=== PATIENT | male | born 1935 | race Caucasian/White ===

== ENCOUNTER 2018-12-08 16:47 | Inpatient (IN) | payer MEDICARE, MEDICAID ==
[~2018-12-08] VITALS: Ht 182.9 cm; Wt 134.0 kg
[~2018-12-08 16:47] MED LIST: ACETAMINOPHEN325 M1 ORAL; CEPHALEXIN500 MG ORAL; DOXYCYCLINE HY100 M6 PO; NITROFURANTOIN100 M2 ORAL; SPIRONOLACTONE50 MG ORAL
[2018-12-08 16:52] VITALS: BP 122/70
--- NOTE | 2018-12-08 16:52 | NUR ---
ED Nurse Note: Pt brought in by ambulance from [facility] due to fever 101.7 since 1300 this afternoon. Tylenol 650mg was given by [facility] staff. Pt also c/o right lower leg sore and pain. Pt is AAO x2, unable to follow commands with no respiratory distress.
[2018-12-08] MEDS ORDERED: LORazepam Inj 2mg/ml 1ml IV ONE ×2 (17:15→18:00)
--- NOTE | 2018-12-08 17:24 | NUR ---
ED Nurse Note: Rectal temp 102.4 F. Crissy/MIGUEL ÁNGEL was notified.
[2018-12-08] MEDS ORDERED: Acetaminophen 650 MG SUPP RECTAL ONE (18:15)
--- NOTE | 2018-12-08 18:15 | NUR ---
ED Nurse Note: Primary RN spoke to pt and tried to get a urine sample via straight cath. Pt is refusing and cursing RN and states he does not need it. Crissy/MIGUEL ÁNGEL was notified and is okay not to collect urine specimen at this time.
--- NOTE | 2018-12-08 18:18 | Emergency Room Report ---
Physical Exam Vital Signs Date Time Temp Pulse Resp B/P (MAP) Pulse Ox O2 Delivery O2 Flow Rate FiO2 12/08/18 16:42 99.7 92 18 118/68 (85) 97 Room Air Medical Decision Making Diagnostic Impression: Primary Impression: Fever Additional Impressions: Cellulitis Elevated WBCs ER Course I seen the patient along with MIGUEL ÁNGEL Loving and agree with workup and treatment plan. Briefly, this is an 83-year-old male sent in from his nursing facility for evaluation of fever. Patient has ulcers over the lower extremities though differential is broad. He has a fever of 101 degrees taken rectally and is receiving Tylenol. Sent in by PMD for admission and further work-up. We will start broad metabolic and infectious work-up and admit to the hospital Laboratory Tests Test 12/08/18 18:00 12/08/18 21:00 12/09/18 06:36 White Blood Count 30.1 K/UL (4.8-10.8) *H 24.5 K/UL (4.8-10.8) *H Red Blood Count 4.67 M/UL (4.70-6.10) L 4.28 M/UL (4.70-6.10) L Hemoglobin 14.6 G/DL (14.2-18.0) 13.5 G/DL (14.2-18.0) L Hematocrit 44.4 % (42.0-52.0) 40.0 % (42.0-52.0) L Mean Corpuscular Volume 95 FL (80-99) 93 FL (80-99) Mean Corpuscular Hemoglobin 31.3 PG (27.0-31.0) H 31.5 PG (27.0-31.0) H Mean Corpuscular Hemoglobin Concent 33.0 G/DL (32.0-36.0) 33.7 G/DL (32.0-36.0) Red Cell Distribution Width 11.1 % (11.6-14.8) L 11.9 % (11.6-14.8) Platelet Count 214 K/UL (150-450) 201 K/UL (150-450) Mean Platelet Volume 7.2 FL (6.5-10.1) 7.2 FL (6.5-10.1) Neutrophils (%) (Auto) % (45.0-75.0) % (45.0-75.0) Lymphocytes (%) (Auto) % (20.0-45.0) % (20.0-45.0) Monocytes (%) (Auto) % (1.0-10.0) % (1.0-10.0) Eosinophils (%) (Auto) % (0.0-3.0) % (0.0-3.0) Basophils (%) (Auto) % (0.0-2.0) % (0.0-2.0) Differential Total Cells Counted 100 100 Neutrophils % (Manual) 74 % (45-75) 90 % (45-75) H Lymphocytes % (Manual) 2 % (20-45) L 4 % (20-45) L Monocytes % (Manual) 5 % (1-10) 5 % (1-10) Eosinophils % (Manual) 0 % (0-3) 0 % (0-3) Basophils % (Manual) 0 % (0-2) 0 % (0-2) Band Neutrophils 19 % (0-8) H 1 % (0-8) Platelet Estimate Adequate Adequate Platelet Morphology Normal Normal Red Blood Cell Morphology Normal Normal Prothrombin Time 10.6 SEC (9.30-11.50) Prothrombin Time INR 1.0 (0.9-1.1) PTT 28 SEC (23-33) Sodium Level 134 MMOL/L (136-145) L 138 MMOL/L (136-145) Potassium Level 4.7 MMOL/L (3.5-5.1) 4.1 MMOL/L (3.5-5.1) Chloride Level 98 MMOL/L (98-107) 103 MMOL/L (98-107) Carbon Dioxide Level 24 MMOL/L (21-32) 22 MMOL/L (21-32) Anion Gap 12 mmol/L (5-15) 13 mmol/L (5-15) Blood Urea Nitrogen 24 mg/dL (7-18) H 23 mg/dL (7-18) H Creatinine 1.5 MG/DL (0.55-1.30) H 1.5 MG/DL (0.55-1.30) H Estimate Glomerular Filtration Rate mL/min (>60) mL/min (>60) Glucose Level 116 MG/DL (74-106) H 104 MG/DL (74-106) Lactic Acid Level 2.60 mmol/L (0.4-2.0) H 2.30 mmol/L (0.66-2.22) H Calcium Level 9.1 MG/DL (8.5-10.1) 8.6 MG/DL (8.5-10.1) Total Bilirubin 0.8 MG/DL (0.2-1.0) 0.7 MG/DL (0.2-1.0) Aspartate Amino Transferase (AST) 17 U/L (15-37) 29 U/L (15-37) Alanine Aminotransferase (ALT) 14 U/L (12-78) 14 U/L (12-78) Alkaline Phosphatase 59 U/L (46-116) 55 U/L (46-116) Total Creatine Kinase 131 U/L (26-308) Creatine Kinase MB 0.6 NG/ML (0.0-3.6) Creatine Kinase MB Relative Index 0.4 Troponin I 0.010 ng/mL (0.000-0.056) Total Protein 8.1 G/DL (6.4-8.2) 7.4 G/DL (6.4-8.2) Albumin 3.3 G/DL (3.4-5.0) L 2.9 G/DL (3.4-5.0) L Globulin 4.8 g/dL 4.5 g/dL Albumin/Globulin Ratio 0.7 (1.0-2.7) L 0.6 (1.0-2.7) L Erythrocyte Sedimentation Rate 66 MM/HR (0-20) H Reevaluation Time: 23:00 Last Vital Signs Date Time Temp Pulse Resp B/P (MAP) Pulse Ox O2 Delivery O2 Flow Rate FiO2 12/08/18 16:52 102.4 89 17 122/70 100 Room Air Reevaluation Impression Patient remains combative with staff. Refusing chest x-ray and urinalysis. Will be sent to the floor without those studies. Disposition: ADMITTED INPATIENT Condition: Serious Referrals: Patric Alonso MD (PCP) Carroll Nolasco MD Dec 08, 2018 18:18
[2018-12-08 18:24] LABS: HEMATOCRIT 44.4 % (42.0-52.0); HEMOGLOBIN 14.6 G/DL (14.2-18.0); MEAN CORPUSCULAR VOLUME 95 FL (80-99); PLATELET COUNT 214 K/UL (150-450); RED BLOOD COUNT 4.67 M/UL (4.70-6.10); RED CELL DISTRIBUTION WIDTH 11.1 % (11.6-14.8)
[2018-12-08] MEDS ORDERED: Cefepime HCl 2 GM in NS 110 ML IV SCH (18:30)
[2018-12-08] MEDS ORDERED: Vancomycin 1.5 GM in NS 275 ML IVPB ONE (18:30)
[2018-12-08 18:34] LABS: WHITE BLOOD COUNT 30.1 K/UL (4.8-10.8)
[2018-12-08] MEDS ORDERED: Haloperidol 5mg/ml Inj IM ONE (18:45)
[2018-12-08 18:47] VITALS: BP 133/75
[2018-12-08 18:48] LABS: ANION GAP 12 mmol/L (5-15); BLOOD UREA NITROGEN 24 mg/dL (7-18); CALCIUM 9.1 MG/DL (8.5-10.1); CARBON DIOXIDE 24 MMOL/L (21-32); CHLORIDE 98 MMOL/L (98-107); CREATININE 1.5 MG/DL (0.55-1.30); POTASSIUM 4.7 MMOL/L (3.5-5.1); SODIUM 134 MMOL/L (136-145)
[2018-12-08 19:01] LABS: ALANINE AMINOTRANSFERASE 14 U/L (12-78); ALBUMIN 3.3 G/DL (3.4-5.0); ALBUMIN/GLOBULIN RATIO 0.7 (1.0-2.7); ALKALINE PHOSPHATASE 59 U/L (46-116); ASPARTATE AMINO TRANSFERASE 17 U/L (15-37); BILIRUBIN,TOTAL 0.8 MG/DL (0.2-1.0); CKMB 0.6 NG/ML (0.0-3.6); CREATINE KINASE 131 U/L (26-308)
--- NOTE | 2018-12-08 19:07 | NUR ---
HAND-OFF: Report given to Wen CONTRERAS.
--- NOTE | 2018-12-08 19:10 | NUR ---
ED Nurse Note: SWABS DONE BY PREVIOUS SHIFT RN SEAMUS, WILL NOTIFY RECEIVING RN FROM TELE.
--- NOTE | 2018-12-08 19:10 | NUR ---
ED Nurse Note: report received from BEN Bateman and assumed care, pt currently sinus tach on school lunch monitor, noted pt BLE edema, with wound on RLE posterior area with scabs. will cont monitor. pt o2sat 100% on RA, no sx resp distress noted at this time, noted pt combative and verbally inappropriate.
--- NOTE | 2018-12-08 19:40 | NUR ---
ED Nurse Note: pt void x 1 on bed, pt cleaned and changed. pt morbidly obese.
--- NOTE | 2018-12-08 19:42 | Emergency Room Report ---
History of Present Illness General Chief Complaint: Fever Source: EMS (Crissy Ray) Present Illness HPI 83-year-old male with history of dementia [facility] [address] Boudreaux' patient's for fever of 102 F. Patient is morbidly obese and has multiple infected skin wounds on lower extremities. Patient denies chest pain, shortness of breath, palpitation, diaphoresis. Patient is able to communicate however demented. Does not have any slurred speech and no unilateral or generalized weakness noted. Patient is shivering upon arrival. All other vital signs are within normal limits. Was taken Tylenol prior to arrival by the paramedics. Patient is noncooperative with staff refuses medication keeps taking his IV out, rectal Tylenol was given successfully, however we had to give him Haldol and Ativan in order to calm him down prior to imaging and administration of IV medication. (Crissy Ray) Allergies: Coded Allergies: No Known Allergies (Unverified , 12/06/17) Patient History Past Medical History: see triage record Past Surgical History: unable to obtain Pertinent Family History: none Immunizations: UTD Reviewed Nursing Documentation: PMH: Agreed; PSxH: Agreed (Crissy Ray) Nursing Documentation-PMH Past Medical History: No History, Except For Hx Cardiac Problems: Yes Hx Hypertension: Yes Hx Dialysis: No - Renal Disease Hx Neurological Problems: Yes - Dementia Hx Dementia: Yes (Crissy Ray) Review of Systems All Other Systems: negative except mentioned in HPI (Crissy Ray) Physical Exam Vital Signs Date Time Temp Pulse Resp B/P (MAP) Pulse Ox O2 Delivery O2 Flow Rate FiO2 12/08/18 16:42 99.7 92 18 118/68 (85) 97 Room Air Sp02 EP Interpretation: reviewed, abnormal - Temperature 102 General Appearance: alert, GCS 15, non-toxic, moderate distress, obese Head: normocephalic, atraumatic Eyes: bilateral eye normal inspection, bilateral eye PERRL ENT: hearing grossly normal, normal pharynx, no angioedema, normal voice Neck: full range of motion, supple/symm/no masses Respiratory: chest non-tender, lungs clear, normal breath sounds, no rhonchi, no wheezing, speaking full sentences Cardiovascular #1: regular rate, rhythm, no edema, no murmur, normal capillary refill Cardiovascular #2: 2+ dorsalis pedis (R), 2+ dorsalis pedis (L) Gastrointestinal: non tender, soft Genitourinary: no CVA tenderness Musculoskeletal: back normal, no calf tenderness, swelling - bilateral lower extremity swelling secondary to cellulitis Neurologic: alert, oriented x3, responsive, motor strength/tone normal, sensory intact, speech normal Psychiatric: judgement/insight normal, memory normal, mood/affect normal, no suicidal/homicidal ideation Skin: diaphoresis, other - infected ulcer right tib fib Lymphatic: no adenopathy (Crissy Ray) Medical Decision Making PA Attestation All diagnoses and treatment plans were reviewed and discussed with my supervising physician Dr. Nolasco (Crissy Ray) Medicare Attestation The history of Alberto Hardwick has been reviewed and management options for him have been examined and discussed by Carroll Nolasco. I have personally examined and interviewed the patient. (Carroll Nolasco MD) Diagnostic Impression: Primary Impression: Fever Additional Impressions: Elevated WBCs Cellulitis ER Course 83-year-old male with history of dementia coming from jail [address] Boudreaux' patient's for fever of 102 F. Patient is morbidly obese and has multiple infected skin wounds on lower extremities. Patient denies chest pain, shortness of breath, palpitation, diaphoresis. Patient is able to communicate however demented. Does not have any slurred speech and no unilateral or generalized weakness noted. Patient is shivering upon arrival. All other vital signs are within normal limits. Was taken Tylenol prior to arrival by the paramedics. Patient is noncooperative with staff refuses medication keeps taking his IV out, rectal Tylenol was given successfully, however we had to give him Haldol and Ativan in order to calm him down prior to imaging and administration of IV medication. Ddx considered but are not limited to : Cellulitis, DVT, superficial infection, abscess Vital signs: are WNL, pt. is afebrile H&PE are most consistent with: Cellulitis and fever ORDERS: ER sepsis work-up ED INTERVENTIONS: NS bolus, cefepime, vancomycin, Tylenol, Haldol, Ativan Patient was admited with diagnosis of cellulitis and fever to Dr. Boudreaux under supervision of : Gaurav pt stable at time of admission (Crissy Ray) EKG Diagnostic Results Rate: normal Rhythm: NSR ST Segments: no acute changes Other Impression no acute ST changes (Crissy Ray) Chest X-Ray Diagnostic Results Chest X-Ray Diagnostic Results : Chest X-Ray Ordered: Yes # of Views/Limited/Complete: 1 View Indication: Other EP Interpretation: Yes PA Xray: Interpretation reviewed, by supervising MD, and agrees with findings. Interpretation: no consolidation, no effusion, no pneumothorax Impression: No acute disease Electronically Signed by: Crissy Caldwell PA-C (Crissy Ray) Last Vital Signs Date Time Temp Pulse Resp B/P (MAP) Pulse Ox O2 Delivery O2 Flow Rate FiO2 12/08/18 18:47 79 20 133/75 96 Room Air 12/08/18 16:52 102.4 (Crissy Ray) Disposition: ADMITTED INPATIENT Condition: Stable Referrals: Patric Alonso MD (PCP) Crissy Ray Dec 08, 2018 19:42 Carroll Nolasco MD Dec 09, 2018 14:09
[2018-12-08 19:50] VITALS: BP 150/68
--- NOTE | 2018-12-08 20:30 | NUR ---
ED Nurse Note: pt demonstrating combative behaviors toward radiology technicians, kicking and punching, er provider notified regarding situation and per ED provider, DR. Alonso was notified. Verified with physician that pt is able to transfer to floor without xray results.
[2018-12-08] MEDS ORDERED: DiphenhydrAMINE 50mg/ml Inj ONE (20:39)
[2018-12-08] MEDS ORDERED: DiphenhydrAMINE 50mg/ml Inj IM ONE (20:45)
[2018-12-08 21:02] VITALS: BP 146/68
--- NOTE | 2018-12-08 21:14 | NUR ---
ED Nurse Note: report given to BEN Robledo.
--- NOTE | 2018-12-08 21:30 | NUR ---
TRANSFER TO FLOOR: PT TRANSFERRED TO TELE, ALL BELONGINGS SENT W/ PT W/ LIST, PT VSS, RESP EVEN AND UNLABORED ON NC VIA 2 L/MIN, PT SLEEPING AT THIS TIME, IV INTACT AND PATENT, RECEIVING BEN ESPANA NOTIFIED LACTIC REFLEX SENT TO LAB. PICTURE WAS UPLOADED BY PREVIOUS SHIFT BEN WAY. PT MED RECON DONE. CARE ENDORSED TO BEN ESPANA, PT SENT VIA ACLS PROTOCOL, SINUS RHYTHM ON COORDINATOR OF EVALUATION.
--- NOTE | 2018-12-08 21:45 | NUR ---
NURSE NOTES: Received pt from ED via gurney. Pt is being admitted for fever and sepsis. Pt is awake and alert but confused and agitated. Pt is very non compliant and belligerent. Placed on quality assurance monitor final. Oriented pt to room and unit. IV lines intact and patent. Bed in lowest position, call light within reach. Will contact MD for admission orders.
[2018-12-08 21:49] VITALS: BP 148/73
[2018-12-09 00:30] VITALS: BP 153/78
[2018-12-09] MEDS ORDERED: Acetaminophen 650 MG SUPP RECTAL PRN (01:15)
[2018-12-09 04:00] VITALS: BP 119/89
--- NOTE | 2018-12-09 06:05 | Consultation ---
History of Present Illness General Chief Complaint: Fever Present Illness Allergies: Coded Allergies: No Known Allergies (Unverified , 12/06/17) Medication History Scheduled Cephalexin* (Keflex*), 500 MG ORAL EVERY 8 HOURS, (Reported) Doxycycline Hyclate (Doxycycline Hyclate), 100 MG PO Q12HR, (Reported) Spironolactone* (Aldactone*), 50 MG ORAL DAILY, (Reported) Scheduled PRN Acetaminophen* (Acetaminophen 325MG Tablet*), 650 MG ORAL Q4H PRN for Breakthrough Pain, (Reported) Patient History Healthcare decision maker N Resuscitation status Full Code Advanced Directive on File Physical Exam Last 24 Hour Vital Signs Date Time Temp Pulse Resp B/P (MAP) Pulse Ox O2 Delivery O2 Flow Rate FiO2 12/09/18 04:00 100.2 100 20 119/89 (99) 95 12/09/18 04:00 100 12/09/18 01:59 99.4 12/09/18 00:30 91 12/09/18 00:30 102.0 91 22 153/78 (103) 94 12/08/18 22:00 Nasal Cannula 2.0 12/08/18 21:50 100 12/08/18 21:49 98.9 100 20 148/73 (98) 94 12/08/18 21:30 100.8 98 20 153/86 96 Nasal Cannula 2.0 12/08/18 21:02 100.9 98 20 146/68 96 Nasal Cannula 2.0 12/08/18 19:50 101.5 99 20 150/68 96 Room Air 12/08/18 18:47 79 20 133/75 96 Room Air 12/08/18 16:52 102.4 89 17 122/70 100 Room Air 12/08/18 16:52 88 15 Room Air 12/08/18 16:42 99.7 92 18 118/68 (85) 97 Room Air Intake and Output 12/08/18 12/09/18 18:59 06:59 Intake Total 1000 ml Balance 1000 ml Intake IV Total 1000 ml # Voids 3 # Bowel Movements 1 Laboratory Tests Test 12/08/18 18:00 12/08/18 21:00 White Blood Count 30.1 K/UL (4.8-10.8) *H Red Blood Count 4.67 M/UL (4.70-6.10) L Hemoglobin 14.6 G/DL (14.2-18.0) Hematocrit 44.4 % (42.0-52.0) Mean Corpuscular Volume 95 FL (80-99) Mean Corpuscular Hemoglobin 31.3 PG (27.0-31.0) H Mean Corpuscular Hemoglobin Concent 33.0 G/DL (32.0-36.0) Red Cell Distribution Width 11.1 % (11.6-14.8) L Platelet Count 214 K/UL (150-450) Mean Platelet Volume 7.2 FL (6.5-10.1) Neutrophils (%) (Auto) % (45.0-75.0) Lymphocytes (%) (Auto) % (20.0-45.0) Monocytes (%) (Auto) % (1.0-10.0) Eosinophils (%) (Auto) % (0.0-3.0) Basophils (%) (Auto) % (0.0-2.0) Differential Total Cells Counted 100 Neutrophils % (Manual) 74 % (45-75) Lymphocytes % (Manual) 2 % (20-45) L Monocytes % (Manual) 5 % (1-10) Eosinophils % (Manual) 0 % (0-3) Basophils % (Manual) 0 % (0-2) Band Neutrophils 19 % (0-8) H Platelet Estimate Adequate Platelet Morphology Normal Red Blood Cell Morphology Normal Prothrombin Time 10.6 SEC (9.30-11.50) Prothromb Time International Ratio 1.0 (0.9-1.1) Activated Partial Thromboplast Time 28 SEC (23-33) Sodium Level 134 MMOL/L (136-145) L Potassium Level 4.7 MMOL/L (3.5-5.1) Chloride Level 98 MMOL/L (98-107) Carbon Dioxide Level 24 MMOL/L (21-32) Anion Gap 12 mmol/L (5-15) Blood Urea Nitrogen 24 mg/dL (7-18) H Creatinine 1.5 MG/DL (0.55-1.30) H Estimat Glomerular Filtration Rate mL/min (>60) Glucose Level 116 MG/DL (74-106) H Lactic Acid Level 2.60 mmol/L (0.4-2.0) H 2.30 mmol/L (0.66-2.22) H Calcium Level 9.1 MG/DL (8.5-10.1) Total Bilirubin 0.8 MG/DL (0.2-1.0) Aspartate Amino Transf (AST/SGOT) 17 U/L (15-37) Alanine Aminotransferase (ALT/SGPT) 14 U/L (12-78) Alkaline Phosphatase 59 U/L (46-116) Total Creatine Kinase 131 U/L (26-308) Creatine Kinase MB 0.6 NG/ML (0.0-3.6) Creatine Kinase MB Relative Index 0.4 Troponin I 0.010 ng/mL (0.000-0.056) Total Protein 8.1 G/DL (6.4-8.2) Albumin 3.3 G/DL (3.4-5.0) L Globulin 4.8 g/dL Albumin/Globulin Ratio 0.7 (1.0-2.7) L Microbiology Date/Time Source Procedure Growth Status 12/08/18 18:00 Rectum Received Height (Feet): 6 Height (Inches): 0.00 Weight (Pounds): 313 Medications Current Medications Medications (Trade) Dose Ordered Sig/Arina Route PRN Reason Start Time Stop Time Status Last Admin Dose Admin Acetaminophen (Tylenol) 650 mg Q4H PRN ORAL Mild Pain/Temp > 100.5 12/08/18 23:15 01/07/19 23:14 Acetaminophen (Tylenol) 650 mg Q4H PRN RECTAL Mild Pain/Temp > 100.5 12/09/18 01:15 01/08/19 01:14 12/09/18 01:29 Spironolactone (Aldactone) 50 mg DAILY ORAL 12/09/18 09:00 01/08/19 08:59 Assessment/Plan Assessment/Plan: HEMATOLOGY-ONCOLOGY CONSULTATION REFERRING PHYSICIAN: Patric Boudreaux M.D. DATE OF CONSULTATION: 12/09/2018 REASON FOR CONSULTATION: Evaluation of potential DVT. Leukocytosis HISTORY OF PRESENT ILLNESS: This is an 83-year-old white male, who is a skilled nursing resident, admitted yesterday because of right leg pain and swelling. Denies fever or any symptoms. I have been consulted for the evaluation of DVT and leukocytosis. Current INR of 1.0 and is on lasix, has been given vanc and cefepime for lower ext swelling, infection, multiple wounds noted, infectious service consulted as well, and pending potential eval as well and pending abx. PAST MEDICAL HISTORY: Significant for morbid obesity, mild dementia, and cellulitis. ALLERGIES: No known drug allergy. MEDICATIONS: Aspirin, heparin, Lasix, Flomax, Protonix, [place], Aldactone, Tylenol, and got the dose of vancomycin in the ER. FAMILY HISTORY: noncontributory SOCIAL HISTORY: [facility] resident. Single. No history of alcohol, drug abuse, or smoking. REVIEW OF SYSTEMS: The patient denies any fever or chills. No coughing. No nausea. No vomiting. No diarrhea. No problem passing urine. PHYSICAL EXAMINATION: VITAL SIGNS: reviewed GEN: No acute distress. Seems obese. HEAD AND NECK: No oral lesion. [place] conjunctiva. HEART: Regular. LUNGS: Clear tab ABDOMEN: Obese, soft, and nontender. EXTREMITIES: Have erythema, warmness, and edema of lower extremities b/l and multiple wounds noted SKIN: Have skin cracks between the right foot toes. LABORATORY DATA: Na 131, potassium 4.9, chloride 104, bicarb 28, BUN 21, and creatinine 1.2. Creatinine at the time of admission was 1.6. WBC 9.9, WBC at the time of admission was 11.4, hemoglobin 12.9, hematocrit 38.6, and platelets 216. UA showed wbc of 10 to 15. Imaging: noted ASSESSMENT AND RECOMMENDATIONS: # Leukocytosis with a wbc of 30k likely due to infection/cellulitis --> given cefepime and vanc in the r --> per id care --> monitor for improvement 30k --> trend as needed 30k # Right greater that left swelling concerning for dvt --> Begin short-acting ppx blood thinner heparin 5k sq tid ===> duplex of the lower ext ordered # Anemia, mild. No w/u required at this time. --> Current Hgb >12 --> anemia panel on prn basis # Tinea pedis in right foot. --> Cont topical clotrimazole on right foot especially between the toes prn # Acute renal failure, improving. # Morbid obesity. # History of dementia. # History of hypertension. # History of CHF # Agitation as per psych, currently on ativan prn Appreciate consultation greatly. Shawn Lopez MD Dec 09, 2018 06:05
[2018-12-09 07:18] LABS: HEMOGLOBIN 13.5 G/DL (14.2-18.0); MEAN CORPUSCULAR VOLUME 93 FL (80-99); PLATELET COUNT 201 K/UL (150-450); RED BLOOD COUNT 4.28 M/UL (4.70-6.10); RED CELL DISTRIBUTION WIDTH 11.9 % (11.6-14.8)
[2018-12-09 07:21] LABS: WHITE BLOOD COUNT 24.5 K/UL (4.8-10.8)
--- NOTE | 2018-12-09 07:32 | NUR ---
HAND-OFF: Report given to BEN Romero.
--- NOTE | 2018-12-09 07:55 | NUR ---
NURSE NOTES: pt. in bed woke up and went back to sleep. Food tray is at bediside. Pt on contact precautions. Pt on monitoring and evaluation advisor no signs of cardiaca or respiratory distress at this time. IV is patent. Bed is locked and in lowest position. Call light is within reach. Will continuer to monitor pt and follow plans of care.
[2018-12-09 08:00] VITALS: BP 136/65
[2018-12-09 08:00] LABS: ALANINE AMINOTRANSFERASE 14 U/L (12-78); ALBUMIN 2.9 G/DL (3.4-5.0); ALBUMIN/GLOBULIN RATIO 0.6 (1.0-2.7); ALKALINE PHOSPHATASE 55 U/L (46-116); ANION GAP 13 mmol/L (5-15); ASPARTATE AMINO TRANSFERASE 29 U/L (15-37); BILIRUBIN,TOTAL 0.7 MG/DL (0.2-1.0); BLOOD UREA NITROGEN 23 mg/dL (7-18); CALCIUM 8.6 MG/DL (8.5-10.1); CARBON DIOXIDE 22 MMOL/L (21-32); CHLORIDE 103 MMOL/L (98-107); CREATININE 1.5 MG/DL (0.55-1.30); POTASSIUM 4.1 MMOL/L (3.5-5.1); SODIUM 138 MMOL/L (136-145)
[2018-12-09] MEDS: Spironolactone 50mg tab ORAL SCH (09:31)
--- NOTE | 2018-12-09 09:40 | Diagnostic Imaging Report ---
Indication: Left leg pain Comparison: None Findings: Two views of the left tibia and fibula were obtained. There is subcutaneous edema involving the left leg. There is no fracture. The bones are osteopenic. IMPRESSION: Subcutaneous edema of the left leg.
--- NOTE | 2018-12-09 09:48 | NUR ---
CASE MANAGEMENT:REVIEW 83 YR OLD MALE BIBA FROM [facility] CC; FEVER 101.7...TYLENOL GIVEN. RLE SORE AND PAIN SI: SEPSIS. FEVER 102.4 92 18 118/68 97% ON RA WBC+30.1 BUN+24 CR+1.5 IS: 1L NS BOLUS IV ATIVAN X2 TYLENOL KS ELIMITE X1 IV VANCOMYCIN BLOOD CX CXR XRAY FEET AND LEGS : TO TELEMETRY IS: IV CEFEPIME Q12 INTERQUAL CRITERIA MET
--- NOTE | 2018-12-09 10:41 | NUR ---
RADIOLOGY DEPT., CHEST AND RIGHT TIB/FIB X-RAYS COMPLETED. PT REFUSES BILATERAL FEET X-RAYS STATING ,"THERE ARE NO PROBLEMS WITH HIS FEET ONLY LOWER RIGHT LEG".-PD
--- NOTE | 2018-12-09 11:00 | Diagnostic Imaging Report ---
Indication: Chest pain Comparison: 12/06/2017 A single view chest radiograph was obtained. Findings: Exam is limited by rotation. Once again, cardiomegaly is present. There is prominence of the pulmonary interstitium and vascularity. The bones appear osteopenic. IMPRESSION: Suspected pulmonary vascular congestion. Limited evaluation due to rotation
--- NOTE | 2018-12-09 11:00 | Diagnostic Imaging Report ---
Indication: right leg pain Comparison: None Findings: Two views of the right tibia and fibula were obtained. No acute fracture, malalignment, or periosteal reaction are identified. Bones are osteopenic. Degenerative arthritis of the knee incidentally noted. There is subcutaneous edema present. Impression: No acute findings
[2018-12-09] MEDS: Doxycycline Monohydrate 100mg ORAL SCH ×2 (11:40→21:56)
[2018-12-09 12:00] VITALS: BP 116/50
--- NOTE | 2018-12-09 12:13 | NUR ---
NURSE NOTES: pt keeps taking alarm security or surveillance monitor off.
--- NOTE | 2018-12-09 14:06 | NUR ---
NURSE NOTES: Syed Aguero prescribed Ativan for agitation pt, keeps trying to get up from bed and is very weak and confused
[2018-12-09] MEDS: LORazepam 1mg tab ORAL PRN ×2 (14:27→21:56)
[2018-12-09] MEDS: Cephalexin 500mg cap ORAL SCH ×2 (14:27→21:56)
--- NOTE | 2018-12-09 15:05 | NUR ---
NURSE NOTES: keep putting cardiac rn on multiple times as well as nasal canula but pt continues to take them off. We will continue to remind pt to keep monitor and oxygen on
[2018-12-09] MEDS: OLANZapine 2.5mg tab ORAL SCH ×2 (15:25→17:55)
[2018-12-09 16:00] VITALS: BP 109/53
--- NOTE | 2018-12-09 17:45 | Consultation ---
DATE OF CONSULTATION: 08/08/2018 INFECTIOUS DISEASE CONSULTATION CONSULTING PHYSICIAN: Robert Lovelace M.D. PRIMARY ATTENDING PHYSICIAN: Patric Alnoso M.D. REASON FOR CONSULTATION: Sepsis, cellulitis of left leg. HISTORY OF PRESENT ILLNESS: This is an 83-year-old white male who is a senior living resident, admitted yesterday because of fever. He had a temperature of 102 in nursing facility and in hospital, had a temperature of 102.4. He had leukocytosis of 30,000 and had pain and swelling in the lower extremities, especially left one. The patient has mild dementia and very non-cooperative, refused antibiotic treatment. PAST MEDICAL HISTORY: Significant for morbid obesity, mild dementia, hypertension. He has a previous admission to [facility] in November of 2017 with right leg cellulitis. Chronic kidney disease. ALLERGIES: No known drug allergies. MEDICATIONS: Started on cefepime, doxycycline. Getting Tylenol. Got a dose of vancomycin and cefepime in the ER. SOCIAL HISTORY: senior care resident. No history of alcohol, drug abuse, or smoking. REVIEW OF SYSTEMS: Unobtainable. The patient is very non-cooperative. PHYSICAL EXAMINATION: VITAL SIGNS: Current temperature 99, pulse 79, blood pressure 136/65. GENERAL APPEARANCE: Obese, in no acute distress. HEAD AND NECK: [place] conjunctiva. HEART: Normal rate. LUNGS: Clear. ABDOMEN: Soft, obese. EXTREMITIES: Tenderness and erythema in the lower extremities with chronic stasis dermatitis. LABORATORY AND DIAGNOSTIC DATA: WBC today is 24.5 coming down from 30.1 at the time of admission, hemoglobin 13.5, hematocrit 40, platelets is 201,000. Sodium 138, potassium 4.1, chloride 103, bicarbonate 22, BUN 23, creatinine 1.5. Lactic acid 2.3. He had left leg x-ray that showed subcutaneous edema. IMPRESSION: Sepsis, fever, leukocytosis. He seems to have cellulitis of left lower extremity. He has mild dementia, morbid obesity, hypertension, lactic acidosis, chronic kidney disease. RECOMMENDATION: We will continue with Keflex and doxycycline. We will follow up clinically. We will follow up cultures. At the end of my exam, I thank Dr. Alonso for involving me in the care of this patient. Robert Lovelace M.D. DR: RENNY JOB#: [id number] CC: MADDY
--- NOTE | 2018-12-09 19:34 | NUR ---
HAND-OFF: Report given to Chencho/pj.
[2018-12-09 20:00] VITALS: BP 137/78
--- NOTE | 2018-12-09 22:11 | Consultation ---
History of Present Illness General Date patient seen: Dec 09, 2018 Reason for Hospitalization: Fever Present Illness HPI 83-year-old male with multiple medical comorbidities who is a prison resident was admitted for sepsis/fever/leukocytosis. He had a temperature of 102 in nursing facility and in hospital had a temperature of 102.4. He had leukocytosis of 30,000 and had pain and swelling in the lower extremities, especially left one. The patient has mild dementia and very non-cooperative. He has lower extremity wounds that are chronic. no n/v. plain films noted. surgery called to evaluate. patient seen, chart reviewed, patient examined. Allergies: Coded Allergies: No Known Allergies (Unverified , 12/06/17) Medication History Scheduled Cephalexin* (Keflex*), 500 MG ORAL EVERY 8 HOURS, (Reported) Doxycycline Hyclate (Doxycycline Hyclate), 100 MG PO Q12HR, (Reported) Spironolactone* (Aldactone*), 50 MG ORAL DAILY, (Reported) Scheduled PRN Acetaminophen* (Acetaminophen 325MG Tablet*), 650 MG ORAL Q4H PRN for Breakthrough Pain, (Reported) Patient History Limited by: medical condition History Provided By: Patient, Medical Record, PMD Healthcare decision maker N Resuscitation status Full Code Advanced Directive on File Past Medical/Surgical History Past Medical/Surgical History: (1) Hypoalbuminemia (2) Sepsis (3) Fever (4) Cellulitis (5) Elevated WBCs Review of Systems Review of Symptoms General ROS: no weight loss or fever Psychological ROS: no depression or mood changes, no memory loss Ophthalmic ROS: no visual changes or eye irritation ENT ROS: no nasal congestion, hearing loss, dizziness Allergy and Immunology ROS: no allergic symptoms or urticaria Hematological and Lymphatic ROS: no swollen glands, unusual bleeding or bruising Endocrine ROS: no polyuria, polydipsia, weight changes, temperature intolerance Respiratory ROS: no cough, shortness of breath, or wheezing Cardiovascular ROS: no chest pain or dyspnea on exertion Gastrointestinal ROS: denies abdominal pain, no bright red blood in stool. Musculoskeletal ROS: no myalgias or arthralgias Neurological ROS: no TIA or stroke symptoms Dermatological ROS: no new or changing skin lesions, rashes or pruritis Physical Exam Physical Exam General appearance: alert, cooperative, no distress, appears stated age Head: Normocephalic, without obvious abnormality, atraumatic Eyes: conjunctivae/corneas clear. PERRL, EOM's intact. Fundi benign Throat: Lips, mucosa, and tongue normal. Teeth and gums normal Neck: supple, symmetrical, trachea midline, no adenopathy, thyroid: not enlarged, symmetric, no tenderness/mass/nodules, no carotid bruit and no JVD Lungs: clear to auscultation bilaterally Heart: regular rate and rhythm, S1, S2 normal, no murmur, click, rub or gallop Abdomen: soft, non-tender. Bowel sounds normal. No masses, no organomegaly Extremities: extremities edema and wounds Pulses: 2+ and symmetric Skin: Skin color, texture, turgor normal. No rashes or lesions Neurologic: Grossly normal Last 24 Hour Vital Signs Date Time Temp Pulse Resp B/P (MAP) Pulse Ox O2 Delivery O2 Flow Rate FiO2 12/09/18 16:00 86 12/09/18 16:00 97.7 77 20 109/53 (71) 95 12/09/18 12:00 90 12/09/18 12:00 97.9 83 20 116/50 (72) 95 12/09/18 09:00 Nasal Cannula 2.0 12/09/18 08:00 79 12/09/18 08:00 99.0 79 22 136/65 (88) 94 12/09/18 04:00 100.2 100 20 119/89 (99) 95 12/09/18 04:00 100 12/09/18 01:59 99.4 12/09/18 00:30 91 12/09/18 00:30 102.0 91 22 153/78 (103) 94 Intake and Output 12/08/18 12/09/18 19:00 07:00 Intake Total 1000 ml Balance 1000 ml IV Total 1000 ml # Voids 5 # Bowel Movements 2 Laboratory Tests Test 12/09/18 06:36 White Blood Count 24.5 K/UL (4.8-10.8) *H Red Blood Count 4.28 M/UL (4.70-6.10) L Hemoglobin 13.5 G/DL (14.2-18.0) L Hematocrit 40.0 % (42.0-52.0) L Mean Corpuscular Volume 93 FL (80-99) Mean Corpuscular Hemoglobin 31.5 PG (27.0-31.0) H Mean Corpuscular Hemoglobin Concent 33.7 G/DL (32.0-36.0) Red Cell Distribution Width 11.9 % (11.6-14.8) Platelet Count 201 K/UL (150-450) Mean Platelet Volume 7.2 FL (6.5-10.1) Neutrophils (%) (Auto) % (45.0-75.0) Lymphocytes (%) (Auto) % (20.0-45.0) Monocytes (%) (Auto) % (1.0-10.0) Eosinophils (%) (Auto) % (0.0-3.0) Basophils (%) (Auto) % (0.0-2.0) Differential Total Cells Counted 100 Neutrophils % (Manual) 90 % (45-75) H Lymphocytes % (Manual) 4 % (20-45) L Monocytes % (Manual) 5 % (1-10) Eosinophils % (Manual) 0 % (0-3) Basophils % (Manual) 0 % (0-2) Band Neutrophils 1 % (0-8) Platelet Estimate Adequate Platelet Morphology Normal Red Blood Cell Morphology Normal Erythrocyte Sedimentation Rate 66 MM/HR (0-20) H Sodium Level 138 MMOL/L (136-145) Potassium Level 4.1 MMOL/L (3.5-5.1) Chloride Level 103 MMOL/L (98-107) Carbon Dioxide Level 22 MMOL/L (21-32) Anion Gap 13 mmol/L (5-15) Blood Urea Nitrogen 23 mg/dL (7-18) H Creatinine 1.5 MG/DL (0.55-1.30) H Estimat Glomerular Filtration Rate mL/min (>60) Glucose Level 104 MG/DL (74-106) Calcium Level 8.6 MG/DL (8.5-10.1) Total Bilirubin 0.7 MG/DL (0.2-1.0) Aspartate Amino Transf (AST/SGOT) 29 U/L (15-37) Alanine Aminotransferase (ALT/SGPT) 14 U/L (12-78) Alkaline Phosphatase 55 U/L (46-116) Total Protein 7.4 G/DL (6.4-8.2) Albumin 2.9 G/DL (3.4-5.0) L Globulin 4.5 g/dL Albumin/Globulin Ratio 0.6 (1.0-2.7) L Height (Feet): 6 Height (Inches): 0.00 Weight (Pounds): 297 Medications Current Medications Medications (Trade) Dose Ordered Sig/Arina Route PRN Reason Start Time Stop Time Status Last Admin Dose Admin Acetaminophen (Tylenol) 650 mg Q4H PRN ORAL Mild Pain/Temp > 100.5 12/08/18 23:15 01/07/19 23:14 Acetaminophen (Tylenol) 650 mg Q4H PRN RECTAL Mild Pain/Temp > 100.5 12/09/18 01:15 01/08/19 01:14 12/09/18 01:29 Cephalexin (Keflex) 500 mg EVERY 8 HOURS ORAL 12/09/18 14:00 12/16/18 13:59 12/09/18 21:56 Doxycycline Monohydrate (Doxycycline Monohydrate) 100 mg EVERY 12 HOURS ORAL 12/09/18 11:00 12/16/18 10:59 12/09/18 21:56 Lorazepam (Ativan) 2 mg Q6H PRN ORAL For Anxiety 12/09/18 14:15 12/16/18 14:14 12/09/18 21:56 Olanzapine (ZyPREXA) 2.5 mg TID ORAL 12/09/18 15:25 01/08/19 15:24 12/09/18 17:55 Spironolactone (Aldactone) 50 mg DAILY ORAL 12/09/18 09:00 01/08/19 08:59 12/09/18 09:31 Assessment/Plan Problem List: (1) Cellulitis Assessment & Plan: Right Tib fib xrays nml Left Tib fix xrays w/ There is subcutaneous edema involving the left leg. There is no fracture. The bones are osteopenic. exam with cellulitis. no abscess palpable cont IV Abx will follow clinically ICD Codes: L03.90 - Cellulitis, unspecified SNOMED: 733837209 (2) Elevated WBCs ICD Codes: D72.829 - Elevated white blood cell count, unspecified SNOMED: 116695459, 484779270 (3) Sepsis Assessment & Plan: possible etiology lower extremity cellulitis cont abx no abscess to drain currently. mainly phlegmona UA CXR blood cultures AM labs thank you ICD Codes: A41.9 - Sepsis, unspecified organism SNOMED: 11940172 (4) Fever ICD Codes: R50.9 - Fever, unspecified SNOMED: 706452860 Yayo Callaway Dec 09, 2018 22:11
[2018-12-10] VITALS: BP 151/74
--- NOTE | 2018-12-10 | History and Physical Report ---
DATE OF ADMISSION: 12/08/2018 HISTORY OF PRESENT ILLNESS: The patient comes in because he had fever of 101 at the facility. Also, admitted for leukocytosis, azotemia, rule out sepsis. The patient refused to give urine sample. The patient is agitated, combative. Also, he has lower extremity cellulitis and wound. He is admitted for those reasons . The patient is a poor historian, very agitated, irritable, and complains of pain in lower extremity. Denies shortness of breath. Denies nausea, vomiting, or diarrhea. No fever or chills. PAST MEDICAL HISTORY: Edema and psychosis. Poor historian. The patient also has history of hypertension, history of dementia. PAST SURGICAL HISTORY: Denies. SOCIAL HISTORY: He does have history of smoking, comes from a [facility]. FAMILY HISTORY: Noncontributory. REVIEW OF SYSTEMS: HEENT: Denies headaches. RESPIRATORY: Denies shortness of breath. Denies cough. CARDIOVASCULAR: Denies chest pain. Denies orthopnea. GASTROINTESTINAL: Denies nausea, vomiting, or diarrhea. EXTREMITIES: Denies pain in the lower extremities. PHYSICAL EXAMINATION: VITAL SIGNS: Temperature was 100.2, pulse is 100, blood pressure 119/89. HEENT: PERRLA. NECK: Supple. No lymphadenopathy. CHEST: Clear to auscultation. CARDIOVASCULAR: Tachycardiac. GASTROINTESTINAL: Soft, nontender, nondistended. No organomegaly. EXTREMITIES: Does have erythema. No signs or symptoms of cellulitis in the lower extremity. He is able to move extremities. Generalized weakness. LABORATORY DATA: WBC of 30.1, hemoglobin 14.6, platelets of 214,000. Sodium 134, potassium 4.7, BUN of 24, creatinine 1.5, and glucose of 116. ASSESSMENT AND PLAN: 1. Leukocytosis. 2. Sepsis. 3. Cellulitis of lower extremity. 4. Refuse to give urine sample. 5. Agitated. I have asked Dr. Fischer, Dr. Robert Lovelace, Dr. Rashid, Dr. Yayo Callaway to see the patient if needs I and D of the decubitus ulcer as well as for the antibiotic treatment of his cellulitis as well as for agitation and as well as for the reason of azotemia, dehydration. Ali Gay Alonso DR: ESTHELA JOB#: [id number] CC:
[2018-12-10 04:00] VITALS: BP 131/62
[2018-12-10] MEDS: Cephalexin 500mg cap ORAL SCH ×3 (06:42→20:46)
--- NOTE | 2018-12-10 07:44 | NUR ---
NURSE NOTES: pt in bed resting, pt is on restraints. food tray is at bed side. pt on electronic device monitor no signs of cardiac or respiratory distress. Call light next to pt. Bed in lowest position. Will continue to follow plan of care and monitor labs.
[2018-12-10 08:48] VITALS: BP 143/68
[2018-12-10] MEDS: OLANZapine 2.5mg tab ORAL SCH ×3 (09:27→18:00)
[2018-12-10] MEDS: Spironolactone 50mg tab ORAL SCH (09:27)
[2018-12-10] MEDS: Doxycycline Monohydrate 100mg ORAL SCH ×2 (09:28→20:46)
--- NOTE | 2018-12-10 10:20 | Hematology/Onc Progress Note ---
Assessment/Plan Assessment/Plan ASSESSMENT AND RECOMMENDATIONS: # Leukocytosis with a wbc of 30k likely due to infection/cellulitis --> given cefepime and vanc in er --> currently on ceph/doxy --> per id care --> monitor for improvement 30k --> trend as needed 30k # Right greater that left swelling concerning for dvt --> Begin short-acting ppx blood thinner heparin 5k sq tid ===> duplex of the lower ext ordered # Anemia, mild. No w/u required at this time. --> Current Hgb >12 --> anemia panel on prn basis # Tinea pedis in right foot. --> Cont topical clotrimazole on right foot especially between the toes prn # Acute renal failure, improving. # Morbid obesity. # History of dementia. # History of hypertension. # History of CHF # Agitation as per psych, currently on ativan prn Appreciate consultation greatly. Subjective Allergies: Coded Allergies: No Known Allergies (Unverified , 12/06/17) Subjective 12/10: on restraints, no acute events, duplex results pending Objective Objective Current Medications Medications (Trade) Dose Ordered Sig/Arina Route PRN Reason Start Time Stop Time Status Last Admin Dose Admin Acetaminophen (Tylenol) 650 mg Q4H PRN ORAL Mild Pain/Temp > 100.5 12/08/18 23:15 01/07/19 23:14 Acetaminophen (Tylenol) 650 mg Q4H PRN RECTAL Mild Pain/Temp > 100.5 12/09/18 01:15 01/08/19 01:14 12/09/18 01:29 Cephalexin (Keflex) 500 mg EVERY 8 HOURS ORAL 12/09/18 14:00 12/16/18 13:59 12/10/18 06:42 Doxycycline Monohydrate (Doxycycline Monohydrate) 100 mg EVERY 12 HOURS ORAL 12/09/18 11:00 12/16/18 10:59 12/10/18 09:28 Lorazepam (Ativan) 2 mg Q6H PRN ORAL For Anxiety 12/09/18 14:15 12/16/18 14:14 12/09/18 21:56 Mirtazapine (Remeron) 7.5 mg BEDTIME ORAL 12/09/18 22:30 01/08/19 22:29 12/09/18 22:46 Olanzapine (ZyPREXA) 2.5 mg TID ORAL 12/09/18 15:25 01/08/19 15:24 12/10/18 09:27 Spironolactone (Aldactone) 50 mg DAILY ORAL 12/09/18 09:00 01/08/19 08:59 12/10/18 09:27 Last 24 Hour Vital Signs Date Time Temp Pulse Resp B/P (MAP) Pulse Ox O2 Delivery O2 Flow Rate FiO2 12/10/18 09:00 Nasal Cannula 2.0 12/10/18 08:48 97.8 90 22 143/68 (93) 98 12/10/18 08:00 95 12/10/18 04:00 93 12/10/18 04:00 99.4 94 18 131/62 (85) 95 12/10/18 00:00 89 12/10/18 00:00 98.9 94 18 151/74 (99) 95 12/09/18 21:00 Nasal Cannula 2.0 12/09/18 20:00 99.0 94 18 137/78 (97) 97 12/09/18 20:00 91 12/09/18 16:00 86 12/09/18 16:00 97.7 77 20 109/53 (71) 95 12/09/18 12:00 90 12/09/18 12:00 97.9 83 20 116/50 (72) 95 12/09/18 09:00 Nasal Cannula 2.0 12/09/18 08:00 79 12/09/18 08:00 99.0 79 22 136/65 (88) 94 12/09/18 04:00 100.2 100 20 119/89 (99) 95 12/09/18 04:00 100 12/09/18 01:59 99.4 12/09/18 00:30 91 12/09/18 00:30 102.0 91 22 153/78 (103) 94 12/08/18 22:00 Nasal Cannula 2.0 12/08/18 21:50 100 12/08/18 21:49 98.9 100 20 148/73 (98) 94 12/08/18 21:30 100.8 98 20 153/86 96 Nasal Cannula 2.0 12/08/18 21:02 100.9 98 20 146/68 96 Nasal Cannula 2.0 12/08/18 19:50 101.5 99 20 150/68 96 Room Air 12/08/18 18:47 79 20 133/75 96 Room Air 12/08/18 16:52 102.4 89 17 122/70 100 Room Air 12/08/18 16:52 88 15 Room Air 12/08/18 16:42 99.7 92 18 118/68 (85) 97 Room Air Intake and Output 12/09/18 12/10/18 18:59 06:59 Intake Total 480 ml Output Total 400 ml Balance 80 ml Intake Oral 480 ml Output Urine Total 400 ml # Voids 4 3 # Bowel Movements 2 1 Labs Test 12/08/18 18:00 12/08/18 21:00 12/09/18 06:36 White Blood Count 30.1 K/UL (4.8-10.8) 24.5 K/UL (4.8-10.8) Red Blood Count 4.67 M/UL (4.70-6.10) 4.28 M/UL (4.70-6.10) Hemoglobin 14.6 G/DL (14.2-18.0) 13.5 G/DL (14.2-18.0) Hematocrit 44.4 % (42.0-52.0) 40.0 % (42.0-52.0) Mean Corpuscular Volume 95 FL (80-99) 93 FL (80-99) Mean Corpuscular Hemoglobin 31.3 PG (27.0-31.0) 31.5 PG (27.0-31.0) Mean Corpuscular Hemoglobin Concent 33.0 G/DL (32.0-36.0) 33.7 G/DL (32.0-36.0) Red Cell Distribution Width 11.1 % (11.6-14.8) 11.9 % (11.6-14.8) Platelet Count 214 K/UL (150-450) 201 K/UL (150-450) Mean Platelet Volume 7.2 FL (6.5-10.1) 7.2 FL (6.5-10.1) Neutrophils (%) (Auto) % (45.0-75.0) % (45.0-75.0) Lymphocytes (%) (Auto) % (20.0-45.0) % (20.0-45.0) Monocytes (%) (Auto) % (1.0-10.0) % (1.0-10.0) Eosinophils (%) (Auto) % (0.0-3.0) % (0.0-3.0) Basophils (%) (Auto) % (0.0-2.0) % (0.0-2.0) Differential Total Cells Counted 100 100 Neutrophils % (Manual) 74 % (45-75) 90 % (45-75) Lymphocytes % (Manual) 2 % (20-45) 4 % (20-45) Monocytes % (Manual) 5 % (1-10) 5 % (1-10) Eosinophils % (Manual) 0 % (0-3) 0 % (0-3) Basophils % (Manual) 0 % (0-2) 0 % (0-2) Band Neutrophils 19 % (0-8) 1 % (0-8) Platelet Estimate Adequate Adequate Platelet Morphology Normal Normal Red Blood Cell Morphology Normal Normal Prothrombin Time 10.6 SEC (9.30-11.50) Prothromb Time International Ratio 1.0 (0.9-1.1) Activated Partial Thromboplast Time 28 SEC (23-33) Sodium Level 134 MMOL/L (136-145) 138 MMOL/L (136-145) Potassium Level 4.7 MMOL/L (3.5-5.1) 4.1 MMOL/L (3.5-5.1) Chloride Level 98 MMOL/L (98-107) 103 MMOL/L (98-107) Carbon Dioxide Level 24 MMOL/L (21-32) 22 MMOL/L (21-32) Anion Gap 12 mmol/L (5-15) 13 mmol/L (5-15) Blood Urea Nitrogen 24 mg/dL (7-18) 23 mg/dL (7-18) Creatinine 1.5 MG/DL (0.55-1.30) 1.5 MG/DL (0.55-1.30) Estimat Glomerular Filtration Rate mL/min (>60) mL/min (>60) Glucose Level 116 MG/DL (74-106) 104 MG/DL (74-106) Lactic Acid Level 2.60 mmol/L (0.4-2.0) 2.30 mmol/L (0.66-2.22) Calcium Level 9.1 MG/DL (8.5-10.1) 8.6 MG/DL (8.5-10.1) Total Bilirubin 0.8 MG/DL (0.2-1.0) 0.7 MG/DL (0.2-1.0) Aspartate Amino Transf (AST/SGOT) 17 U/L (15-37) 29 U/L (15-37) Alanine Aminotransferase (ALT/SGPT) 14 U/L (12-78) 14 U/L (12-78) Alkaline Phosphatase 59 U/L (46-116) 55 U/L (46-116) Total Creatine Kinase 131 U/L (26-308) Creatine Kinase MB 0.6 NG/ML (0.0-3.6) Creatine Kinase MB Relative Index 0.4 Troponin I 0.010 ng/mL (0.000-0.056) Total Protein 8.1 G/DL (6.4-8.2) 7.4 G/DL (6.4-8.2) Albumin 3.3 G/DL (3.4-5.0) 2.9 G/DL (3.4-5.0) Globulin 4.8 g/dL 4.5 g/dL Albumin/Globulin Ratio 0.7 (1.0-2.7) 0.6 (1.0-2.7) Erythrocyte Sedimentation Rate 66 MM/HR (0-20) Height (Feet): 6 Height (Inches): 0.00 Weight (Pounds): 297 Objective PHYSICAL EXAMINATION: VITAL SIGNS: reviewed GEN: No acute distress. Seems obese. Restraints++ HEAD AND NECK: No oral lesion. [place] conjunctiva. HEART: Regular. LUNGS: Clear tab ABDOMEN: Obese, soft, and nontender. EXTREMITIES: Have erythema, warmness, and edema of lower extremities b/l and multiple wounds noted SKIN: Have skin cracks between the right foot toes. Shawn Lopez MD Dec 10, 2018 10:20
--- NOTE | 2018-12-10 10:37 | NUR ---
CASE MANAGEMENT:REVIEW 12/10/18 SI: SEPSIS. LE CELLULITIS AGITATION 97.8 90 22 143/68 98% ON 2L/NC IS: KEFLEX PO Q8HRS DOXYCYCLINE PO Q12 ALDACTONE PO QD REMERON PO QHS ZYPREXA PO TID : TELEMETRY STATUS DCP: FROM [facility]
[2018-12-10 11:44] LABS: HEMATOCRIT 40.1 % (42.0-52.0); HEMOGLOBIN 13.3 G/DL (14.2-18.0); MEAN CORPUSCULAR VOLUME 94 FL (80-99); PLATELET COUNT 200 K/UL (150-450); RED BLOOD COUNT 4.26 M/UL (4.70-6.10); RED CELL DISTRIBUTION WIDTH 12.6 % (11.6-14.8); WHITE BLOOD COUNT 21.1 K/UL (4.8-10.8)
[2018-12-10 12:00] VITALS: BP 135/69
[2018-12-10 12:02] LABS: ALANINE AMINOTRANSFERASE 25 U/L (12-78); ALBUMIN 2.6 G/DL (3.4-5.0); ALBUMIN/GLOBULIN RATIO 0.5 (1.0-2.7); ALKALINE PHOSPHATASE 57 U/L (46-116); ANION GAP 5 mmol/L (5-15); ASPARTATE AMINO TRANSFERASE 31 U/L (15-37); BILIRUBIN,TOTAL 0.4 MG/DL (0.2-1.0); BLOOD UREA NITROGEN 23 mg/dL (7-18); CALCIUM 8.8 MG/DL (8.5-10.1); CARBON DIOXIDE 29 MMOL/L (21-32); CHLORIDE 106 MMOL/L (98-107); CREATININE 1.4 MG/DL (0.55-1.30); POTASSIUM 4.2 MMOL/L (3.5-5.1); SODIUM 140 MMOL/L (136-145)
--- NOTE | 2018-12-10 12:22 | General Progress Note ---
Assessment/Plan Problem List: (1) Cellulitis ICD Codes: L03.90 - Cellulitis, unspecified SNOMED: 718992719 (2) Fever ICD Codes: R50.9 - Fever, unspecified SNOMED: 856592559 (3) Elevated WBCs ICD Codes: D72.829 - Elevated white blood cell count, unspecified SNOMED: 874775843, 112435069 (4) Hypoalbuminemia ICD Codes: E88.09 - Other disorders of plasma-protein metabolism, not elsewhere classified SNOMED: 623802721 (5) Sepsis ICD Codes: A41.9 - Sepsis, unspecified organism SNOMED: 17913892 Status: progressing Assessment/Plan: afebrile sepsis leukocytosis psych patient on on restraints for being agiated and abusive behaviour reviewed chart and labs Subjective ROS Limited/Unobtainable: Yes Allergies: Coded Allergies: No Known Allergies (Unverified , 12/06/17) Objective Last 24 Hour Vital Signs Date Time Temp Pulse Resp B/P (MAP) Pulse Ox O2 Delivery O2 Flow Rate FiO2 12/10/18 09:00 Nasal Cannula 2.0 12/10/18 08:48 97.8 90 22 143/68 (93) 98 12/10/18 08:00 95 12/10/18 04:00 93 12/10/18 04:00 99.4 94 18 131/62 (85) 95 12/10/18 00:00 89 12/10/18 00:00 98.9 94 18 151/74 (99) 95 12/09/18 21:00 Nasal Cannula 2.0 12/09/18 20:00 99.0 94 18 137/78 (97) 97 12/09/18 20:00 91 12/09/18 16:00 86 12/09/18 16:00 97.7 77 20 109/53 (71) 95 Intake and Output 12/09/18 12/10/18 18:59 06:59 Intake Total 480 ml Output Total 400 ml Balance 80 ml Intake Oral 480 ml Output Urine Total 400 ml # Voids 4 3 # Bowel Movements 2 1 Laboratory Tests 12/10/18 11:30: White Blood Count 21.1H, Red Blood Count 4.26L, Hemoglobin 13.3L, Hematocrit 40.1L, Mean Corpuscular Volume 94, Mean Corpuscular Hemoglobin 31.2H, Mean Corpuscular Hemoglobin Concent 33.2, Red Cell Distribution Width 12.6, Platelet Count 200, Mean Platelet Volume 7.3, Neutrophils (%) (Auto) , Lymphocytes (%) ( Auto) , Monocytes (%) (Auto) , Eosinophils (%) (Auto) , Basophils (%) (Auto) , Neutrophils % (Manual) [Pending], Lymphocytes % (Manual) [Pending], Platelet Estimate [Pending], Platelet Morphology [Pending], Sodium Level 140, Potassium Level 4.2, Chloride Level 106, Carbon Dioxide Level 29, Anion Gap 5, Blood Urea Nitrogen 23H, Creatinine 1.4H, Estimat Glomerular Filtration Rate , Glucose Level 119H, Calcium Level 8.8, Total Bilirubin 0.4, Aspartate Amino Transf (AST/ SGOT) 31, Alanine Aminotransferase (ALT/SGPT) 25, Alkaline Phosphatase 57, C- Reactive Protein, Quantitative 38.0H, Total Protein 7.4, Albumin 2.6L, Globulin 4.8, Albumin/Globulin Ratio 0.5L Height (Feet): 6 Height (Inches): 0.00 Weight (Pounds): 297 Neck: supple Cardiovascular: normal rate Respiratory/Chest: lungs clear Abdomen: soft Patric Alonso MD Dec 10, 2018 12:22
--- NOTE | 2018-12-10 13:00 | Consultation ---
DATE OF CONSULTATION: 12/09/2018 CONSULTING PHYSICIAN: Andrzej Fischer M.D. HISTORY OF PRESENT ILLNESS: This is an 83-year-old male with a history of multiple medical comorbidities who has been admitted to the hospital for medical stabilization. The patient has a history of morbid obesity, dementia, hypertension, and chronic kidney disease who has been admitted to the hospital. The patient is having dementia and is uncooperative, refusing treatment, yelling, screaming, attempting to jump the bed. The patient is a poor historian. PAST PSYCHIATRIC HISTORY: Dementia, anxiety disorder, outside of the hospital has not been on any psychotropic medications. PAST MEDICAL HISTORY: 1. Chronic kidney disease. 2. Hyperlipidemia. 3. Cellulitis of the leg. ALLERGIES: No known drug allergies. SUBSTANCE USE HISTORY: No known history of illicit drug use or alcohol. MENTAL STATUS EXAMINATION: The patient is alert, uncooperative, agitated, not participating in his mental status examination and is confused. Mood is agitated. Affect is flat. Thought process, there is a paucity of thought content and disorganized. Thought content, no suicidal or homicidal ideations. ASSESSMENT: [place] I Dementia with behavior disturbance. Acute metabolic encephalopathy. [place] II Deferred. [place] III As above. [place] IV Moderate. [place] V 20. PLAN: 1. The patient was started on Zyprexa. 2. We will start the patient on Remeron 7.5 at bedtime. 3. Continue the soft restraints. Andrzej Fischer M.D. DR: MORENITA JOB#: [id number] CC:
--- NOTE | 2018-12-10 13:18 | Consultation ---
Consult Note Consult Note I am asked to evaluate the patient at the request of Dr rodriguez for renal failure Patient poor historian examined- rash ? Scabies all over has condom cath confused obese legs swollen ER: 83-year-old male with history of dementia coming from skilled nursing [address] Rodriguez' patient's for fever of 102 F. Patient is morbidly obese and has multiple infected skin wounds on lower extremities. Patient denies chest pain, shortness of breath, palpitation, diaphoresis. Patient is able to communicate however demented. Does not have any slurred speech and no unilateral or generalized weakness noted. Patient is shivering upon arrival. All other vital signs are within normal limits. Was taken Tylenol prior to arrival by the paramedics. Patient is noncooperative with staff refuses medication keeps taking his IV out, rectal Tylenol was given successfully, however we had to give him Haldol and Ativan in order to calm him down prior to imaging and administration of IV medication. No Known Allergies (Unverified , 12/06/17) Past Medical History: No History, Except For Hx Cardiac Problems: Yes Hx Hypertension: Yes Hx Neurological Problems: Yes - Dementia Hx Dementia: Yes Assessment/Plan presents with Fever and high WBCs and LE cellulitis Cr 1.5: h/o CKD no urine analysis yet Dementia HTN Obesity Lactic acidosis Antibiotics slow diurese avoid nephrotoxics 2D echo monitor renal parameters UA Jay Rashid MD Dec 10, 2018 13:18
--- NOTE | 2018-12-10 14:29 | Infectious Diseases Prog Note ---
Assessment/Plan Assessment/Plan IMPRESSION: Sepsis, fever, leukocytosis Cellulitis of left lower extremity. Dementia, morbid obesity, hypertension, lactic acidosis, chronic kidney disease. RECOMMENDATION: We will continue with Keflex and doxycycline. Subjective ROS Limited/Unobtainable: Yes Constitutional: Denies: fever Neurologic: Reports: other - on restraint Allergies: Coded Allergies: No Known Allergies (Unverified , 12/06/17) Objective Vital Signs Last 24 Hour Vital Signs Date Time Temp Pulse Resp B/P (MAP) Pulse Ox O2 Delivery O2 Flow Rate FiO2 12/10/18 12:00 98.2 87 21 135/69 (91) 98 12/10/18 09:00 Nasal Cannula 2.0 12/10/18 08:48 97.8 90 22 143/68 (93) 98 12/10/18 08:00 96 Nasal Cannula 2.0 28 12/10/18 08:00 95 12/10/18 04:00 93 12/10/18 04:00 99.4 94 18 131/62 (85) 95 12/10/18 00:00 89 12/10/18 00:00 98.9 94 18 151/74 (99) 95 12/09/18 21:00 Nasal Cannula 2.0 12/09/18 20:00 99.0 94 18 137/78 (97) 97 12/09/18 20:00 91 12/09/18 16:00 86 12/09/18 16:00 97.7 77 20 109/53 (71) 95 Height (Feet): 6 Height (Inches): 0.00 Weight (Pounds): 297 General Appearance: no acute distress HEENT: mucous membranes moist Respiratory/Chest: lungs clear Cardiovascular: normal rate Abdomen: soft, non tender Extremities: other - edema of legs Skin: other - erythema of left barrios Neurologic/Psychiatric: other - sleeping Microbiology Date/Time Source Procedure Growth Status 12/08/18 18:15 Blood Blood Culture - Preliminary NO GROWTH AFTER 24 HOURS Resulted 12/08/18 18:00 Blood Blood Culture - Preliminary NO GROWTH AFTER 24 HOURS Resulted 12/08/18 18:00 Nasal Nares MRSA Culture - Final NO METHICILLIN RESISTANT STAPH AUREUS... Complete 12/08/18 18:00 Rectum VRE Culture - Final NO VANCOMYCIN RESISTANT ENTEROCOCCUS ... Complete 12/08/18 18:00 Rectum - Final NO CARBAPENEM-RESISTANT ENTEROBACTERI... Complete Laboratory Tests Test 12/10/18 11:30 White Blood Count 21.1 K/UL (4.8-10.8) H Red Blood Count 4.26 M/UL (4.70-6.10) L Hemoglobin 13.3 G/DL (14.2-18.0) L Hematocrit 40.1 % (42.0-52.0) L Mean Corpuscular Volume 94 FL (80-99) Mean Corpuscular Hemoglobin 31.2 PG (27.0-31.0) H Mean Corpuscular Hemoglobin Concent 33.2 G/DL (32.0-36.0) Red Cell Distribution Width 12.6 % (11.6-14.8) Platelet Count 200 K/UL (150-450) Mean Platelet Volume 7.3 FL (6.5-10.1) Neutrophils (%) (Auto) % (45.0-75.0) Lymphocytes (%) (Auto) % (20.0-45.0) Monocytes (%) (Auto) % (1.0-10.0) Eosinophils (%) (Auto) % (0.0-3.0) Basophils (%) (Auto) % (0.0-2.0) Differential Total Cells Counted 100 Neutrophils % (Manual) 87 % (45-75) H Lymphocytes % (Manual) 7 % (20-45) L Monocytes % (Manual) 6 % (1-10) Eosinophils % (Manual) 0 % (0-3) Basophils % (Manual) 0 % (0-2) Band Neutrophils 0 % (0-8) Platelet Estimate Adequate Platelet Morphology Normal Red Blood Cell Morphology Normal Sodium Level 140 MMOL/L (136-145) Potassium Level 4.2 MMOL/L (3.5-5.1) Chloride Level 106 MMOL/L (98-107) Carbon Dioxide Level 29 MMOL/L (21-32) Anion Gap 5 mmol/L (5-15) Blood Urea Nitrogen 23 mg/dL (7-18) H Creatinine 1.4 MG/DL (0.55-1.30) H Estimat Glomerular Filtration Rate mL/min (>60) Glucose Level 119 MG/DL (74-106) H Calcium Level 8.8 MG/DL (8.5-10.1) Total Bilirubin 0.4 MG/DL (0.2-1.0) Aspartate Amino Transf (AST/SGOT) 31 U/L (15-37) Alanine Aminotransferase (ALT/SGPT) 25 U/L (12-78) Alkaline Phosphatase 57 U/L (46-116) C-Reactive Protein, Quantitative 38.0 mg/dL (0.00-0.90) H Total Protein 7.4 G/DL (6.4-8.2) Albumin 2.6 G/DL (3.4-5.0) L Globulin 4.8 g/dL Albumin/Globulin Ratio 0.5 (1.0-2.7) L Current Medications Medications (Trade) Dose Ordered Sig/Arina Route PRN Reason Start Time Stop Time Status Last Admin Dose Admin Acetaminophen (Tylenol) 650 mg Q4H PRN ORAL Mild Pain/Temp > 100.5 12/08/18 23:15 01/07/19 23:14 Acetaminophen (Tylenol) 650 mg Q4H PRN RECTAL Mild Pain/Temp > 100.5 12/09/18 01:15 01/08/19 01:14 12/09/18 01:29 Cephalexin (Keflex) 500 mg EVERY 8 HOURS ORAL 12/09/18 14:00 12/16/18 13:59 12/10/18 06:42 Docusate Sodium (Colace) 100 mg THREE TIMES A DAY ORAL 12/10/18 18:00 01/09/19 17:59 Doxycycline Monohydrate (Doxycycline Monohydrate) 100 mg EVERY 12 HOURS ORAL 12/09/18 11:00 12/16/18 10:59 12/10/18 09:28 Lorazepam (Ativan) 2 mg Q6H PRN ORAL For Anxiety 12/09/18 14:15 12/16/18 14:14 12/09/18 21:56 Mirtazapine (Remeron) 7.5 mg BEDTIME ORAL 12/09/18 22:30 01/08/19 22:29 12/09/18 22:46 Olanzapine (ZyPREXA) 2.5 mg TID ORAL 12/09/18 15:25 01/08/19 15:24 12/10/18 09:27 Pantoprazole (Protonix) 40 mg EVERY 12 HOURS ORAL 12/10/18 21:00 01/09/19 20:59 Spironolactone (Aldactone) 50 mg DAILY ORAL 12/09/18 09:00 01/08/19 08:59 12/10/18 09:27 Tamsulosin HCl (Flomax) 0.4 mg BID ORAL 12/10/18 18:00 01/09/19 17:59 Robert Lovelace MD Dec 10, 2018 14:29
--- NOTE | 2018-12-10 14:45 | NUR ---
NURSE NOTES: urine specimen taken to lab both urinalysis and urine culture will be use from same specimen per sterile processing technician.
[2018-12-10 15:27] LABS: APPEARANCE,URINE SLIGHTLY CLOUDY; BILIRUBIN, URINE NEGATIVE (NEGATIVE); GLUCOSE, URINE (UA) NEGATIVE (NEGATIVE); KETONES,URINE 2+ (NEGATIVE); LEUKOCYTE ESTERASE ,URINE 1+ (NEGATIVE); NITRITE,URINE NEGATIVE (NEGATIVE); PH,URINE 5 (4.5-8.0); PROTEIN,URINE 2+ (NEGATIVE); UROBILINOGEN,URINE NORMAL MG/DL (0.0-1.0)
[2018-12-10 15:29] LABS: COLOR,URINE YELLOW
[2018-12-10 16:00] VITALS: BP 139/72
--- NOTE | 2018-12-10 16:36 | Surgery Progress Note ---
Surgery Progress Note Subjective Symptoms: improved, tolerating diet, voiding well, passing flatus Additional Comments labs improved states he feels well no n/v/f/c Objective Last 24 Hour Vital Signs Date Time Temp Pulse Resp B/P (MAP) Pulse Ox O2 Delivery O2 Flow Rate FiO2 12/10/18 12:00 98.2 87 21 135/69 (91) 98 12/10/18 09:00 Nasal Cannula 2.0 12/10/18 08:48 97.8 90 22 143/68 (93) 98 12/10/18 08:00 96 Nasal Cannula 2.0 28 12/10/18 08:00 95 12/10/18 04:00 93 12/10/18 04:00 99.4 94 18 131/62 (85) 95 12/10/18 00:00 89 12/10/18 00:00 98.9 94 18 151/74 (99) 95 12/09/18 21:00 Nasal Cannula 2.0 12/09/18 20:00 99.0 94 18 137/78 (97) 97 12/09/18 20:00 91 I&O Intake and Output 12/09/18 12/10/18 19:00 07:00 Intake Total 480 ml Output Total 400 ml Balance 80 ml Intake Oral 480 ml Output Urine Total 400 ml # Voids 4 3 # Bowel Movements 2 1 Dressing: dry Wound: clean Cardiovascular: RSR Respiratory: clear Abdomen: soft, flat, non-tender, present bowel sounds, non-distended Extremities: edema, tenderness, no cyanosis Laboratory Tests Test 12/10/18 11:30 12/10/18 14:50 White Blood Count 21.1 K/UL (4.8-10.8) H Red Blood Count 4.26 M/UL (4.70-6.10) L Hemoglobin 13.3 G/DL (14.2-18.0) L Hematocrit 40.1 % (42.0-52.0) L Mean Corpuscular Volume 94 FL (80-99) Mean Corpuscular Hemoglobin 31.2 PG (27.0-31.0) H Mean Corpuscular Hemoglobin Concent 33.2 G/DL (32.0-36.0) Red Cell Distribution Width 12.6 % (11.6-14.8) Platelet Count 200 K/UL (150-450) Mean Platelet Volume 7.3 FL (6.5-10.1) Neutrophils (%) (Auto) % (45.0-75.0) Lymphocytes (%) (Auto) % (20.0-45.0) Monocytes (%) (Auto) % (1.0-10.0) Eosinophils (%) (Auto) % (0.0-3.0) Basophils (%) (Auto) % (0.0-2.0) Differential Total Cells Counted 100 Neutrophils % (Manual) 87 % (45-75) H Lymphocytes % (Manual) 7 % (20-45) L Monocytes % (Manual) 6 % (1-10) Eosinophils % (Manual) 0 % (0-3) Basophils % (Manual) 0 % (0-2) Band Neutrophils 0 % (0-8) Platelet Estimate Adequate Platelet Morphology Normal Red Blood Cell Morphology Normal Sodium Level 140 MMOL/L (136-145) Potassium Level 4.2 MMOL/L (3.5-5.1) Chloride Level 106 MMOL/L (98-107) Carbon Dioxide Level 29 MMOL/L (21-32) Anion Gap 5 mmol/L (5-15) Blood Urea Nitrogen 23 mg/dL (7-18) H Creatinine 1.4 MG/DL (0.55-1.30) H Estimat Glomerular Filtration Rate mL/min (>60) Glucose Level 119 MG/DL (74-106) H Calcium Level 8.8 MG/DL (8.5-10.1) Total Bilirubin 0.4 MG/DL (0.2-1.0) Aspartate Amino Transf (AST/SGOT) 31 U/L (15-37) Alanine Aminotransferase (ALT/SGPT) 25 U/L (12-78) Alkaline Phosphatase 57 U/L (46-116) C-Reactive Protein, Quantitative 38.0 mg/dL (0.00-0.90) H Total Protein 7.4 G/DL (6.4-8.2) Albumin 2.6 G/DL (3.4-5.0) L Globulin 4.8 g/dL Albumin/Globulin Ratio 0.5 (1.0-2.7) L Urine Color Yellow Urine Appearance Slightly cloudy Urine pH 5 (4.5-8.0) Urine Specific [place] 1.020 (1.005-1.035) Urine Protein 2+ (NEGATIVE) H Urine Glucose (UA) Negative (NEGATIVE) Urine Ketones 2+ (NEGATIVE) H Urine Blood 3+ (NEGATIVE) H Urine Nitrite Negative (NEGATIVE) Urine Bilirubin Negative (NEGATIVE) Urine Urobilinogen Normal MG/DL (0.0-1.0) Urine Leukocyte Esterase 1+ (NEGATIVE) H Urine RBC 0-2 /HPF (0 - 0) H Urine WBC 20-30 /HPF (0 - 0) H Urine Squamous Epithelial Cells Occasional /LPF Urine Bacteria Few /HPF (NONE) Plan Problems: (1) Cellulitis Assessment & Plan: Right Tib fib xrays nml Left Tib fix xrays w/ There is subcutaneous edema involving the left leg. There is no fracture. The bones are osteopenic. exam with cellulitis. no abscess palpable on left right with small healing scab posterior cont IV Abx will follow clinically (2) Elevated WBCs (3) Sepsis Assessment & Plan: possible etiology lower extremity cellulitis cont abx no abscess to drain currently. mainly phlegmona UA CXR blood cultures AM labs cont abx as per ID thank you (4) Fever Yayo Callaway Dec 10, 2018 16:36
--- NOTE | 2018-12-10 17:15 | NUR ---
NURSE NOTES: reported to dr. Padilla pt does not have a tinsmith apprentice/ 1730 Doctor Stalin was assigned to be her tinsmith apprentice he ordered stat 2d echo and troponin labs. Ca and Mg labs for tomorrow. Cancelled order to transfer pt to med surg / Dr. Gant.
[2018-12-10] MEDS: Docusate 100mg cap ORAL SCH (18:00)
[2018-12-10] MEDS: Tamsulosin 0.4mg cap ORAL SCH (18:00)
--- NOTE | 2018-12-10 18:38 | NUR ---
NURSE NOTES: pt too sleepy and unable to swallow meds. so 1800 meds were held back.
--- NOTE | 2018-12-10 19:45 | NUR ---
HAND-OFF: Report given to Katherine/BEN pt sleeping in stable condition. Rn will check for 2D echo results. reported to RN and type cutter pt's different arythmias during the day.
--- NOTE | 2018-12-10 19:58 | NUR ---
NURSE NOTES: Received pt from BEN Romero. Pt awake, alert, and talkative. Bed in lowest position. Call light within reach. Will continue to monitor.
[2018-12-10 20:00] VITALS: BP 126/72
--- NOTE | 2018-12-10 23:32 | NUR ---
HAND-OFF: Report given to BEN Clayton. Pt stable.
--- NOTE | 2018-12-10 23:35 | NUR ---
NURSE NOTES: Got report from Katherine CONTRERAS. Pt in stable condition. Continue to monitor.
[2018-12-11] VITALS (7 sets, daily range): BP systolic 101–149; BP diastolic 41–63
[2018-12-11] MEDS: Cephalexin 500mg cap ORAL SCH (05:37)
--- NOTE | 2018-12-11 05:45 | Progress Note ---
DATE: 12/10/2018 SUBJECTIVE: The patient continues to be confused, not manageable. Still has episodes of agitation. His condition is improving. He was advised to eat and rest. MENTAL STATUS EXAMINATION: The patient is alert and disoriented. Mood was agitated. Affect is flat. Thought process, disorganized. Thought content, no suicidal or homicidal ideation. Memory is impaired. Insight and judgment are impaired. ASSESSMENT: Acute metabolic encephalopathy. PLAN: We will continue the current psychotropic medication. Provide the patient with reality orientation. Andrzej Fischer M.D. DR: IGNACIO JOB#: [id number] CC:
--- NOTE | 2018-12-11 07:00 | NUR ---
HAND-OFF: Report given to Quentin CONTRERAS.
[2018-12-11 07:52] LABS: BASOPHILS % (AUTO) 0.4 % (0.0-2.0); EOSINOPHILS % (AUTO) 1.9 % (0.0-3.0); HEMATOCRIT 41.6 % (42.0-52.0); HEMOGLOBIN 13.5 G/DL (14.2-18.0); LYMPHOCYTES % (AUTO) 10.4 % (20.0-45.0); MEAN CORPUSCULAR VOLUME 96 FL (80-99); MONOCYTES % (AUTO) 10.1 % (1.0-10.0); NEUTROPHILS % (AUTO) 77.3 % (45.0-75.0); PLATELET COUNT 222 K/UL (150-450); RED BLOOD COUNT 4.33 M/UL (4.70-6.10); RED CELL DISTRIBUTION WIDTH 12.2 % (11.6-14.8); WHITE BLOOD COUNT 15.4 K/UL (4.8-10.8)
[2018-12-11 07:54] LABS: ALANINE AMINOTRANSFERASE 23 U/L (12-78); ALBUMIN 2.5 G/DL (3.4-5.0); ALBUMIN/GLOBULIN RATIO 0.5 (1.0-2.7); ALKALINE PHOSPHATASE 61 U/L (46-116); ANION GAP 7 mmol/L (5-15); ASPARTATE AMINO TRANSFERASE 22 U/L (15-37); BILIRUBIN,TOTAL 0.4 MG/DL (0.2-1.0); BLOOD UREA NITROGEN 24 mg/dL (7-18); CALCIUM 8.7 MG/DL (8.5-10.1); CARBON DIOXIDE 30 MMOL/L (21-32); CHLORIDE 106 MMOL/L (98-107); CHOLESTEROL 132 MG/DL (< 200); CREATININE 1.3 MG/DL (0.55-1.30); GAMMA GLUTAMYL TRANSPEPTIDASE 16 U/L (5-85); HDL CHOLESTEROL 23 MG/DL (40-60); PHOSPHORUS 2.5 MG/DL (2.5-4.9); POTASSIUM 4.2 MMOL/L (3.5-5.1); SODIUM 143 MMOL/L (136-145); TRIGLYCERIDES 94 MG/DL (30-150)
[2018-12-11] MEDS: Spironolactone 50mg tab ORAL SCH (09:00)
[2018-12-11] MEDS: Tamsulosin 0.4mg cap ORAL SCH ×2 (09:00→17:03)
[2018-12-11] MEDS: Doxycycline Monohydrate 100mg ORAL SCH (09:00)
[2018-12-11] MEDS: Docusate 100mg cap ORAL SCH ×2 (09:00→17:03)
--- NOTE | 2018-12-11 09:05 | NUR ---
NURSE NOTES: Report received from BEN Clayton. Patient asleep but rousable and confused consistent with overnight RN's findings. No changes noted in breathing , breathing easily on RA, and no sign cardiac distress. Night RN reported that patient pulled off condom multiple times. Provided urinal. Bed alarm on and bed in lowest , locked position with call yates and urinal in reach. Patient awoke wtih gentle shaking and calling name. Patient pushed away RN arm and said "no, Im ok" to offers of help with breakfast. Patient fell back asleep. Repositioned in bed and currently patient skin dry and intact. AOX2 with calm affect. Addendum: 12/11/18 at 1008 by Gonsalo Sagastume RN At change of shift patient was able to verbalize to slight degree, see above, but lethargic and refused food and only biting straw to admin liquids. Provider Jerzy notified--provider at bedside during venous doppler scan and made aware of change to lethargy. Dr ivelisse Perry (ID) consult and U/A. Reconnected condom cath. Patient will open eyes with robust calling his name and tapping arms. Addendum: 12/11/18 at 1009 by Gonsalo Sagastume RN Dr aware that no oral meds pssible currently with patient lethargy. Addendum: 12/11/18 at 1029 by Gonsalo Sagastume RN Notes above regarding provider Jerzy in error. Provider Jerzy not assigned to this patient--miscommunication when provider was found at bedside of Mr Hardwick. Called emerg line for primary MD Alonso at 1020am. Cancelled orders for U/A and Vicky consult. WCTM--doppler still ongoing and patient currently verbalizing with less urging. Patient requested water and was able to sip from cup and open eyes--showing improvement in neuro status.
--- NOTE | 2018-12-11 10:07 | Nephrology Progress Note ---
Assessment/Plan Problem List: (1) Renal failure (ARF), acute on chronic (2) Cellulitis (3) Elevated WBCs (4) Sepsis (5) UTI (urinary tract infection) Assessment presents with Fever and high WBCs and LE cellulitis Cr 1.5: h/o CKD no urine analysis yet Dementia HTN Obesity Lactic acidosis Plan Antibiotics slow diurese avoid nephrotoxics 2D echo monitor renal parameters UA noted one dose Lasix IV Subjective ROS Limited/Unobtainable: No Constitutional: Reports: malaise, weakness Objective Objective Last 24 Hour Vital Signs Date Time Temp Pulse Resp B/P (MAP) Pulse Ox O2 Delivery O2 Flow Rate FiO2 12/11/18 07:47 98.0 74 20 120/50 (73) 95 12/11/18 04:00 81 12/11/18 04:00 97.8 78 18 149/63 (91) 95 12/11/18 00:00 84 12/11/18 00:00 97.9 88 18 146/60 (88) 98 12/10/18 21:00 Nasal Cannula 2.0 12/10/18 20:00 98.9 83 18 126/72 (90) 98 12/10/18 20:00 86 12/10/18 16:00 98.0 89 22 139/72 (94) 98 12/10/18 16:00 82 12/10/18 12:00 98.2 87 21 135/69 (91) 98 12/10/18 12:00 88 Intake and Output 12/10/18 12/11/18 18:59 06:59 Intake Total 900 ml Output Total 700 ml Balance 200 ml Intake Oral 900 ml Output Urine Total 700 ml # Voids 2 # Bowel Movements 1 Laboratory Tests 12/10/18 11:30: White Blood Count 21.1H, Red Blood Count 4.26L, Hemoglobin 13.3L, Hematocrit 40.1L, Mean Corpuscular Volume 94, Mean Corpuscular Hemoglobin 31.2H, Mean Corpuscular Hemoglobin Concent 33.2, Red Cell Distribution Width 12.6, Platelet Count 200, Mean Platelet Volume 7.3, Neutrophils (%) (Auto) , Lymphocytes (%) ( Auto) , Monocytes (%) (Auto) , Eosinophils (%) (Auto) , Basophils (%) (Auto) , Differential Total Cells Counted 100, Neutrophils % (Manual) 87H, Lymphocytes % (Manual) 7L, Monocytes % (Manual) 6, Eosinophils % (Manual) 0, Basophils % ( Manual) 0, Band Neutrophils 0, Platelet Estimate Adequate, Platelet Morphology Normal, Red Blood Cell Morphology Normal, Sodium Level 140, Potassium Level 4.2 , Chloride Level 106, Carbon Dioxide Level 29, Anion Gap 5, Blood Urea Nitrogen 23H, Creatinine 1.4H, Estimat Glomerular Filtration Rate , Glucose Level 119H, Calcium Level 8.8, Total Bilirubin 0.4, Aspartate Amino Transf (AST/SGOT) 31, Alanine Aminotransferase (ALT/SGPT) 25, Alkaline Phosphatase 57, C-Reactive Protein, Quantitative 38.0H, Total Protein 7.4, Albumin 2.6L, Globulin 4.8, Albumin/Globulin Ratio 0.5L 12/10/18 14:50: Urine Color Yellow, Urine Appearance Slightly cloudy, Urine pH 5, Urine Specific [place] 1.020, Urine Protein 2+H, Urine Glucose (UA) Negative, Urine Ketones 2+H, Urine Blood 3+H, Urine Nitrite Negative, Urine Bilirubin Negative, Urine Urobilinogen Normal, Urine Leukocyte Esterase 1+H, Urine RBC 0-2H, Urine WBC 20-30H, Urine Squamous Epithelial Cells Occasional, Urine Bacteria Few 12/10/18 17:58: Troponin I 0.052 12/11/18 06:10: White Blood Count 15.4H, Red Blood Count 4.33L, Hemoglobin 13.5L, Hematocrit 41.6L, Mean Corpuscular Volume 96, Mean Corpuscular Hemoglobin 31.2H, Mean Corpuscular Hemoglobin Concent 32.4, Red Cell Distribution Width 12.2, Platelet Count 222, Mean Platelet Volume 7.0, Neutrophils (%) (Auto) 77.3H, Lymphocytes ( %) (Auto) 10.4L, Monocytes (%) (Auto) 10.1H, Eosinophils (%) (Auto) 1.9, Basophils (%) (Auto) 0.4, Sodium Level 143, Potassium Level 4.2, Chloride Level 106, Carbon Dioxide Level 30, Anion Gap 7, Blood Urea Nitrogen 24H, Creatinine 1.3, Estimat Glomerular Filtration Rate , Glucose Level 111H, Calcium Level 8.7 , Total Bilirubin 0.4, Aspartate Amino Transf (AST/SGOT) 22, Alanine Aminotransferase (ALT/SGPT) 23, Alkaline Phosphatase 61, C-Reactive Protein, Quantitative 34.1H, Total Protein 7.5, Albumin 2.5L, Globulin 5.0, Albumin/ Globulin Ratio 0.5L, Hemoglobin A1c 6.5H, Lactic Acid Level 0.90, Uric Acid 6.3 , Phosphorus Level 2.5, Magnesium Level 2.1, Gamma Glutamyl Transpeptidase 16, Pro-B-Type Natriuretic Peptide 1949H, Triglycerides Level 94, Cholesterol Level 132, LDL Cholesterol 69, HDL Cholesterol 23L, Cholesterol/HDL Ratio 5.7H, Thyroid Stimulating Hormone (TSH) 2.067 Height (Feet): 6 Height (Inches): 0.00 Weight (Pounds): 297 Cardiovascular: normal rate Respiratory/Chest: decreased breath sounds Abdomen: distended Jay Rashid MD Dec 11, 2018 10:07
--- NOTE | 2018-12-11 11:51 | NUR ---
NURSE NOTES: Patient rousable to sip apple juice, and have brief responses to questions ("Are you hungry: answered 'no', "are you thirsty--'yes')but immediately falling asleep again. Called back to Dr alonso at 1120am. Left 2nd message: Dr returned call 1125am stated to order cmp, cbc, u/a with culture, cxr and call doctors Alvaro and Amado. Informed Dr Marshall that no neuro consuilt was in place, but was sure he consulted Dr Lovell already. all done by this RN. Dr Lovell stated he was not previuosly following patient, but now is aware of consult adn would stop by room. Dr Fischer stated to dc all psych meds ( made aware of med record schedule showing 2pm yesterday as last administred time) Addendum: 12/11/18 at 1205 by Gonsalo Sagastume RN At 1125am phone conversation with Dr Alonso informed that no oral meds possible to be given to patient due to lethargy. No new orders from regarding meds at this time. Follow up phone message left with Dr Alonso that patient will be transfering to [facility] and relayed contents of call with Dr Lovell and Dr Ham. Dr Marshall told that VSS with BP 120/50. [place]xtell at 1202p that [id number] available for transfer of patient.
--- NOTE | 2018-12-11 12:20 | Surgery Progress Note ---
Surgery Progress Note Subjective Additional Comments Afebrile, hemodynamically stable, leukocytosis improved, see exam stable. No acute events. Objective Last 24 Hour Vital Signs Date Time Temp Pulse Resp B/P (MAP) Pulse Ox O2 Delivery O2 Flow Rate FiO2 12/11/18 08:00 95 Nasal Cannula 2.0 28 12/11/18 07:47 98.0 74 20 120/50 (73) 95 12/11/18 04:00 81 12/11/18 04:00 97.8 78 18 149/63 (91) 95 12/11/18 00:00 84 12/11/18 00:00 97.9 88 18 146/60 (88) 98 12/10/18 21:00 Nasal Cannula 2.0 12/10/18 20:00 98.9 83 18 126/72 (90) 98 12/10/18 20:00 86 12/10/18 16:00 98.0 89 22 139/72 (94) 98 12/10/18 16:00 82 I&O Intake and Output 12/10/18 12/11/18 18:59 06:59 Intake Total 900 ml Output Total 700 ml Balance 200 ml Intake Oral 900 ml Output Urine Total 700 ml # Voids 2 # Bowel Movements 1 Cardiovascular: RSR Respiratory: clear Abdomen: soft, flat, non-tender, present bowel sounds Extremities: edema, no cyanosis, other Laboratory Tests Test 12/10/18 14:50 12/10/18 17:58 12/11/18 06:10 Urine Color Yellow Urine Appearance Slightly cloudy Urine pH 5 (4.5-8.0) Urine Specific [place] 1.020 (1.005-1.035) Urine Protein 2+ (NEGATIVE) H Urine Glucose (UA) Negative (NEGATIVE) Urine Ketones 2+ (NEGATIVE) H Urine Blood 3+ (NEGATIVE) H Urine Nitrite Negative (NEGATIVE) Urine Bilirubin Negative (NEGATIVE) Urine Urobilinogen Normal MG/DL (0.0-1.0) Urine Leukocyte Esterase 1+ (NEGATIVE) H Urine RBC 0-2 /HPF (0 - 0) H Urine WBC 20-30 /HPF (0 - 0) H Urine Squamous Epithelial Cells Occasional /LPF Urine Bacteria Few /HPF (NONE) Troponin I 0.052 ng/mL (0.000-0.056) White Blood Count 15.4 K/UL (4.8-10.8) H Red Blood Count 4.33 M/UL (4.70-6.10) L Hemoglobin 13.5 G/DL (14.2-18.0) L Hematocrit 41.6 % (42.0-52.0) L Mean Corpuscular Volume 96 FL (80-99) Mean Corpuscular Hemoglobin 31.2 PG (27.0-31.0) H Mean Corpuscular Hemoglobin Concent 32.4 G/DL (32.0-36.0) Red Cell Distribution Width 12.2 % (11.6-14.8) Platelet Count 222 K/UL (150-450) Mean Platelet Volume 7.0 FL (6.5-10.1) Neutrophils (%) (Auto) 77.3 % (45.0-75.0) H Lymphocytes (%) (Auto) 10.4 % (20.0-45.0) L Monocytes (%) (Auto) 10.1 % (1.0-10.0) H Eosinophils (%) (Auto) 1.9 % (0.0-3.0) Basophils (%) (Auto) 0.4 % (0.0-2.0) Sodium Level 143 MMOL/L (136-145) Potassium Level 4.2 MMOL/L (3.5-5.1) Chloride Level 106 MMOL/L (98-107) Carbon Dioxide Level 30 MMOL/L (21-32) Anion Gap 7 mmol/L (5-15) Blood Urea Nitrogen 24 mg/dL (7-18) H Creatinine 1.3 MG/DL (0.55-1.30) Estimat Glomerular Filtration Rate mL/min (>60) Glucose Level 111 MG/DL (74-106) H Hemoglobin A1c 6.5 % (4.3-6.0) H Lactic Acid Level 0.90 mmol/L (0.4-2.0) Uric Acid 6.3 MG/DL (2.6-7.2) Calcium Level 8.7 MG/DL (8.5-10.1) Phosphorus Level 2.5 MG/DL (2.5-4.9) Magnesium Level 2.1 MG/DL (1.8-2.4) Total Bilirubin 0.4 MG/DL (0.2-1.0) Gamma Glutamyl Transpeptidase 16 U/L (5-85) Aspartate Amino Transf (AST/SGOT) 22 U/L (15-37) Alanine Aminotransferase (ALT/SGPT) 23 U/L (12-78) Alkaline Phosphatase 61 U/L (46-116) C-Reactive Protein, Quantitative 34.1 mg/dL (0.00-0.90) H Pro-B-Type Natriuretic Peptide 1949 pg/mL (0-125) H Total Protein 7.5 G/DL (6.4-8.2) Albumin 2.5 G/DL (3.4-5.0) L Globulin 5.0 g/dL Albumin/Globulin Ratio 0.5 (1.0-2.7) L Triglycerides Level 94 MG/DL (30-150) Cholesterol Level 132 MG/DL (< 200) LDL Cholesterol 69 mg/dL (<100) HDL Cholesterol 23 MG/DL (40-60) L Cholesterol/HDL Ratio 5.7 (3.3-4.4) H Thyroid Stimulating Hormone (TSH) 2.067 uiU/mL (0.358-3.740) Plan Problems: (1) Cellulitis Assessment & Plan: Right Tib fib xrays nml Left Tib fix xrays w/ There is subcutaneous edema involving the left leg. There is no fracture. The bones are osteopenic. exam with cellulitis. no abscess palpable on left right with small healing scab posterior cont IV Abx will follow clinically (2) Elevated WBCs (3) Sepsis Assessment & Plan: possible etiology lower extremity cellulitis cont abx no abscess to drain currently. mainly phlegmona UA CXR blood cultures AM labs cont abx as per ID thank you (4) Fever Yayo Callaway Dec 11, 2018 12:20
--- NOTE | 2018-12-11 12:24 | Diagnostic Imaging Report ---
EXAM: XR Chest, 1 View CLINICAL HISTORY: AMS TECHNIQUE: Frontal view of the chest. COMPARISON: Chest x-ray dated 12 09 18 FINDINGS: Limitations: Exam is degraded by rotation. Lungs: Low lung volumes, which may be related to shallow inspiration. Mildly increased interstitial markings. Subsegmental atelectasis versus infiltrate in the right lung base. Pleural space: Unremarkable. The costophrenic angles are sharp. No visible pneumothorax. Heart: Unremarkable. No cardiomegaly. Mediastinum: Unremarkable. Bones joints: Unremarkable. Tubes, lines and devices: Telemetry leads overlie the thorax. IMPRESSION: 1. Low lung volumes, which may be related to shallow inspiration. 2. Mildly increased interstitial markings. This may be related to bronchovascular crowding from the low lung volumes. Differential diagnosis may also include mild pulmonary vascular congestion. 3. Subsegmental atelectasis versus infiltrate in the right lung base.
--- NOTE | 2018-12-11 12:41 | NUR ---
NURSE NOTES: Spoke with Dr Alonso regarding Neuro changes and patient difficult to wake up. aware and reiterated needs for stat exams--currently getting blood (previous magazine journalist unable to obtain sample) and currently getting ABG and currently Dr Osborn from ID at bedside.
--- NOTE | 2018-12-11 12:44 | Infectious Diseases Prog Note ---
Assessment/Plan Assessment/Plan IMPRESSION: Sepsis, fever, leukocytosis Cellulitis of left lower extremity. Dementia, morbid obesity, hypertension, lactic acidosis, chronic kidney disease. Altered mental status RECOMMENDATION: Discontinue Keflex and doxycycline. Start on Rocephin & Vancomycin Subjective ROS Limited/Unobtainable: Yes Neurologic: Reports: other - drowsy, not waking Allergies: Coded Allergies: No Known Allergies (Unverified , 12/06/17) Objective Vital Signs Last 24 Hour Vital Signs Date Time Temp Pulse Resp B/P (MAP) Pulse Ox O2 Delivery O2 Flow Rate FiO2 12/11/18 08:00 95 Nasal Cannula 2.0 28 12/11/18 07:47 98.0 74 20 120/50 (73) 95 12/11/18 04:00 81 12/11/18 04:00 97.8 78 18 149/63 (91) 95 12/11/18 00:00 84 12/11/18 00:00 97.9 88 18 146/60 (88) 98 12/10/18 21:00 Nasal Cannula 2.0 12/10/18 20:00 98.9 83 18 126/72 (90) 98 12/10/18 20:00 86 12/10/18 16:00 98.0 89 22 139/72 (94) 98 12/10/18 16:00 82 Height (Feet): 6 Height (Inches): 0.00 Weight (Pounds): 297 HEENT: mucous membranes moist Respiratory/Chest: lungs clear Cardiovascular: normal rate Abdomen: soft, non tender Extremities: other - edema of legs Skin: rash, other - left leg erythema Neurologic/Psychiatric: other - lethargic Microbiology Date/Time Source Procedure Growth Status 12/08/18 18:15 Blood Blood Culture - Preliminary NO GROWTH AFTER 24 HOURS Resulted 12/08/18 18:00 Blood Blood Culture - Preliminary NO GROWTH AFTER 24 HOURS Resulted 12/08/18 18:00 Nasal Nares MRSA Culture - Final NO METHICILLIN RESISTANT STAPH AUREUS... Complete 12/10/18 14:50 Urine,Clean Catch Urine Culture - Preliminary NO GROWTH Resulted 12/08/18 18:00 Rectum VRE Culture - Final NO VANCOMYCIN RESISTANT ENTEROCOCCUS ... Complete 12/08/18 18:00 Rectum - Final NO CARBAPENEM-RESISTANT ENTEROBACTERI... Complete Laboratory Tests Test 12/10/18 14:50 12/10/18 17:58 12/11/18 06:10 Urine Color Yellow Urine Appearance Slightly cloudy Urine pH 5 (4.5-8.0) Urine Specific [place] 1.020 (1.005-1.035) Urine Protein 2+ (NEGATIVE) H Urine Glucose (UA) Negative (NEGATIVE) Urine Ketones 2+ (NEGATIVE) H Urine Blood 3+ (NEGATIVE) H Urine Nitrite Negative (NEGATIVE) Urine Bilirubin Negative (NEGATIVE) Urine Urobilinogen Normal MG/DL (0.0-1.0) Urine Leukocyte Esterase 1+ (NEGATIVE) H Urine RBC 0-2 /HPF (0 - 0) H Urine WBC 20-30 /HPF (0 - 0) H Urine Squamous Epithelial Cells Occasional /LPF Urine Bacteria Few /HPF (NONE) Troponin I 0.052 ng/mL (0.000-0.056) White Blood Count 15.4 K/UL (4.8-10.8) H Red Blood Count 4.33 M/UL (4.70-6.10) L Hemoglobin 13.5 G/DL (14.2-18.0) L Hematocrit 41.6 % (42.0-52.0) L Mean Corpuscular Volume 96 FL (80-99) Mean Corpuscular Hemoglobin 31.2 PG (27.0-31.0) H Mean Corpuscular Hemoglobin Concent 32.4 G/DL (32.0-36.0) Red Cell Distribution Width 12.2 % (11.6-14.8) Platelet Count 222 K/UL (150-450) Mean Platelet Volume 7.0 FL (6.5-10.1) Neutrophils (%) (Auto) 77.3 % (45.0-75.0) H Lymphocytes (%) (Auto) 10.4 % (20.0-45.0) L Monocytes (%) (Auto) 10.1 % (1.0-10.0) H Eosinophils (%) (Auto) 1.9 % (0.0-3.0) Basophils (%) (Auto) 0.4 % (0.0-2.0) Sodium Level 143 MMOL/L (136-145) Potassium Level 4.2 MMOL/L (3.5-5.1) Chloride Level 106 MMOL/L (98-107) Carbon Dioxide Level 30 MMOL/L (21-32) Anion Gap 7 mmol/L (5-15) Blood Urea Nitrogen 24 mg/dL (7-18) H Creatinine 1.3 MG/DL (0.55-1.30) Estimat Glomerular Filtration Rate mL/min (>60) Glucose Level 111 MG/DL (74-106) H Hemoglobin A1c 6.5 % (4.3-6.0) H Lactic Acid Level 0.90 mmol/L (0.4-2.0) Uric Acid 6.3 MG/DL (2.6-7.2) Calcium Level 8.7 MG/DL (8.5-10.1) Phosphorus Level 2.5 MG/DL (2.5-4.9) Magnesium Level 2.1 MG/DL (1.8-2.4) Total Bilirubin 0.4 MG/DL (0.2-1.0) Gamma Glutamyl Transpeptidase 16 U/L (5-85) Aspartate Amino Transf (AST/SGOT) 22 U/L (15-37) Alanine Aminotransferase (ALT/SGPT) 23 U/L (12-78) Alkaline Phosphatase 61 U/L (46-116) C-Reactive Protein, Quantitative 34.1 mg/dL (0.00-0.90) H Pro-B-Type Natriuretic Peptide 1949 pg/mL (0-125) H Total Protein 7.5 G/DL (6.4-8.2) Albumin 2.5 G/DL (3.4-5.0) L Globulin 5.0 g/dL Albumin/Globulin Ratio 0.5 (1.0-2.7) L Triglycerides Level 94 MG/DL (30-150) Cholesterol Level 132 MG/DL (< 200) LDL Cholesterol 69 mg/dL (<100) HDL Cholesterol 23 MG/DL (40-60) L Cholesterol/HDL Ratio 5.7 (3.3-4.4) H Thyroid Stimulating Hormone (TSH) 2.067 uiU/mL (0.358-3.740) Current Medications Medications (Trade) Dose Ordered Sig/Arina Route PRN Reason Start Time Stop Time Status Last Admin Dose Admin Acetaminophen (Tylenol) 650 mg Q4H PRN ORAL Mild Pain/Temp > 100.5 12/08/18 23:15 01/07/19 23:14 Acetaminophen (Tylenol) 650 mg Q4H PRN RECTAL Mild Pain/Temp > 100.5 12/09/18 01:15 01/08/19 01:14 12/09/18 01:29 Cephalexin (Keflex) 500 mg EVERY 8 HOURS ORAL 12/09/18 14:00 12/16/18 13:59 12/11/18 05:37 Docusate Sodium (Colace) 100 mg THREE TIMES A DAY ORAL 12/10/18 18:00 01/09/19 17:59 Doxycycline Monohydrate (Doxycycline Monohydrate) 100 mg EVERY 12 HOURS ORAL 12/09/18 11:00 12/16/18 10:59 12/10/18 20:46 Heparin Sodium (Porcine) (Heparin 5000 units/ml) 5,000 units EVERY 12 HOURS SUBQ 12/11/18 12:45 01/10/19 12:44 UNV Mirtazapine (Remeron) 7.5 mg BEDTIME ORAL 12/09/18 22:30 01/08/19 22:29 12/10/18 20:46 Pantoprazole (Protonix) 40 mg EVERY 12 HOURS ORAL 12/10/18 21:00 01/09/19 20:59 12/10/18 20:46 Spironolactone (Aldactone) 50 mg DAILY ORAL 12/09/18 09:00 01/08/19 08:59 12/10/18 09:27 Tamsulosin HCl (Flomax) 0.4 mg BID ORAL 12/10/18 18:00 01/09/19 17:59 Robert Lovelace MD Dec 11, 2018 12:44
[2018-12-11] MEDS ORDERED: Heparin 5000 units/ml inj SUBQ SCH (12:45)
--- NOTE | 2018-12-11 14:24 | NUR ---
NURSE NOTES: Gave report to BEN Bhatt. patient hygiene provided just prior to transfer to [facility] and voided . Tele box returned and switched to [facility] tele. Urine sample delivered to lab. Patient roused during attempt to take blood sample (unsuccessful x2 [facility]) and patient thrashed and stated "Im in the hospital. I don't give a crap!" when asked where he was and explained that we need to get blood sample. CTMonitor Addendum: 12/11/18 at 1433 by Gonsalo Sagastume RN Endorsed to BERNIE RN that patient needs bloodwork still and ABGs and urine done Addendum: 12/11/18 at 1439 by Gonsalo Sagastume RN Endorsed to BERNIE RN that suspicion of Scabies was endorsed to this RN by obdulio CONTRERAS. Checked Dr Osborn's note for more information--no information noted. BERNIE RN to follow up.
--- NOTE | 2018-12-11 14:30 | NUR ---
NURSE NOTES: Dr. Gordillo seen and examined patient at bedside. MD ordered place pt on BiPAP QHS and PRN, place pt on BiPAP now, settings 12/5 FiO2 30%, keep SpO2 90-96%, ABGs two hours after placing on. Acquire x 1 accuchek. Noted and carried out.
--- NOTE | 2018-12-11 14:30 | NUR ---
NURSE NOTES: Received report from BEN Saavedra. Patient transferred to unit for altered mental status. Patient noted with vital signs of BP 108/41 HR 71, SpO2 93%. Patient on 2 L nasal cannula. Observed no presence of pain or discomfort at this time. Dr. John seen and examined at bedside at Telemetry, per report no new orders given. Dr. Gordillo to see patient. Bed is in lowest position, brakes engaged. Call light is kept within easy reach. Will continue to monitor patient.
[2018-12-11 14:34] LABS: APPEARANCE,URINE CLEAR; BILIRUBIN, URINE NEGATIVE (NEGATIVE); COLOR,URINE PALE YELLOW; GLUCOSE, URINE (UA) NEGATIVE (NEGATIVE); KETONES,URINE NEGATIVE (NEGATIVE); LEUKOCYTE ESTERASE ,URINE NEGATIVE (NEGATIVE); NITRITE,URINE NEGATIVE (NEGATIVE); PH,URINE 5 (4.5-8.0); PROTEIN,URINE 2+ (NEGATIVE); UROBILINOGEN,URINE NORMAL MG/DL (0.0-1.0)
--- NOTE | 2018-12-11 14:53 | Cardiac Electrophysiology PN ---
Subjective Subjective [id number] Objective Last 24 Hour Vital Signs Date Time Temp Pulse Resp B/P (MAP) Pulse Ox O2 Delivery O2 Flow Rate FiO2 12/11/18 12:01 67 12/11/18 12:00 97.2 67 20 101/50 (67) 97 12/11/18 09:00 Nasal Cannula 2.0 12/11/18 08:00 95 Nasal Cannula 2.0 28 12/11/18 07:47 98.0 74 20 120/50 (73) 95 12/11/18 07:44 74 12/11/18 04:00 81 12/11/18 04:00 97.8 78 18 149/63 (91) 95 12/11/18 00:00 84 12/11/18 00:00 97.9 88 18 146/60 (88) 98 12/10/18 21:00 Nasal Cannula 2.0 12/10/18 20:00 98.9 83 18 126/72 (90) 98 12/10/18 20:00 86 12/10/18 16:00 98.0 89 22 139/72 (94) 98 12/10/18 16:00 82 Intake and Output 12/10/18 12/11/18 18:59 06:59 Intake Total 900 ml Output Total 700 ml Balance 200 ml Intake Oral 900 ml Output Urine Total 700 ml # Voids 2 # Bowel Movements 1 Laboratory Tests Test 12/10/18 17:58 12/11/18 06:10 12/11/18 12:33 12/11/18 13:29 Troponin I 0.052 ng/mL (0.000-0.056) White Blood Count 15.4 K/UL (4.8-10.8) H Red Blood Count 4.33 M/UL (4.70-6.10) L Hemoglobin 13.5 G/DL (14.2-18.0) L Hematocrit 41.6 % (42.0-52.0) L Mean Corpuscular Volume 96 FL (80-99) Mean Corpuscular Hemoglobin 31.2 PG (27.0-31.0) H Mean Corpuscular Hemoglobin Concent 32.4 G/DL (32.0-36.0) Red Cell Distribution Width 12.2 % (11.6-14.8) Platelet Count 222 K/UL (150-450) Mean Platelet Volume 7.0 FL (6.5-10.1) Neutrophils (%) (Auto) 77.3 % (45.0-75.0) H Lymphocytes (%) (Auto) 10.4 % (20.0-45.0) L Monocytes (%) (Auto) 10.1 % (1.0-10.0) H Eosinophils (%) (Auto) 1.9 % (0.0-3.0) Basophils (%) (Auto) 0.4 % (0.0-2.0) Sodium Level 143 MMOL/L (136-145) Potassium Level 4.2 MMOL/L (3.5-5.1) Chloride Level 106 MMOL/L (98-107) Carbon Dioxide Level 30 MMOL/L (21-32) Anion Gap 7 mmol/L (5-15) Blood Urea Nitrogen 24 mg/dL (7-18) H Creatinine 1.3 MG/DL (0.55-1.30) Estimat Glomerular Filtration Rate mL/min (>60) Glucose Level 111 MG/DL (74-106) H Hemoglobin A1c 6.5 % (4.3-6.0) H Lactic Acid Level 0.90 mmol/L (0.4-2.0) Uric Acid 6.3 MG/DL (2.6-7.2) Calcium Level 8.7 MG/DL (8.5-10.1) Phosphorus Level 2.5 MG/DL (2.5-4.9) Magnesium Level 2.1 MG/DL (1.8-2.4) Total Bilirubin 0.4 MG/DL (0.2-1.0) Gamma Glutamyl Transpeptidase 16 U/L (5-85) Aspartate Amino Transf (AST/SGOT) 22 U/L (15-37) Alanine Aminotransferase (ALT/SGPT) 23 U/L (12-78) Alkaline Phosphatase 61 U/L (46-116) C-Reactive Protein, Quantitative 34.1 mg/dL (0.00-0.90) H Pro-B-Type Natriuretic Peptide 1949 pg/mL (0-125) H Total Protein 7.5 G/DL (6.4-8.2) Albumin 2.5 G/DL (3.4-5.0) L Globulin 5.0 g/dL Albumin/Globulin Ratio 0.5 (1.0-2.7) L Triglycerides Level 94 MG/DL (30-150) Cholesterol Level 132 MG/DL (< 200) LDL Cholesterol 69 mg/dL (<100) HDL Cholesterol 23 MG/DL (40-60) L Cholesterol/HDL Ratio 5.7 (3.3-4.4) H Thyroid Stimulating Hormone (TSH) 2.067 uiU/mL (0.358-3.740) Arterial Blood pH 7.338 (7.350-7.450) Arterial Blood Partial Pressure CO2 54.0 mmHg (35.0-45.0) H Arterial Blood Partial Pressure O2 88.1 mmHg (75.0-100.0) Arterial Blood HCO3 28.3 mmol/L (22.0-26.0) H Arterial Blood Oxygen Saturation 96.5 % (95-100) Arterial Blood Base Excess 1.5 (-2-2) [place] Test Positive Urine Color Pale yellow Urine Appearance Clear Urine pH 5 (4.5-8.0) Urine Specific [place] 1.020 (1.005-1.035) Urine Protein 2+ (NEGATIVE) H Urine Glucose (UA) Negative (NEGATIVE) Urine Ketones Negative (NEGATIVE) Urine Blood 2+ (NEGATIVE) H Urine Nitrite Negative (NEGATIVE) Urine Bilirubin Negative (NEGATIVE) Urine Urobilinogen Normal MG/DL (0.0-1.0) Urine Leukocyte Esterase Negative (NEGATIVE) Urine RBC 2-4 /HPF (0 - 0) H Urine WBC 2-4 /HPF (0 - 0) Urine Squamous Epithelial Cells Occasional /LPF Urine Amorphous Sediment Few /LPF (NONE) H Urine Bacteria Occasional /HPF (NONE) Urine Fine Granular Casts 0-2 /LPF (NONE) H Microbiology Date/Time Source Procedure Growth Status 12/08/18 18:15 Blood Blood Culture - Preliminary NO GROWTH AFTER 24 HOURS Resulted 12/08/18 18:00 Blood Blood Culture - Preliminary NO GROWTH AFTER 24 HOURS Resulted 12/08/18 18:00 Nasal Nares MRSA Culture - Final NO METHICILLIN RESISTANT STAPH AUREUS... Complete 12/10/18 14:50 Urine,Clean Catch Urine Culture - Preliminary NO GROWTH Resulted 12/08/18 18:00 Rectum VRE Culture - Final NO VANCOMYCIN RESISTANT ENTEROCOCCUS ... Complete 12/08/18 18:00 Rectum - Final NO CARBAPENEM-RESISTANT ENTEROBACTERI... Complete Mikey Snyder MD Dec 11, 2018 14:53
[2018-12-11] MEDS ORDERED: Vancomycin 1.5gm/NS Premix IVPB ONE (15:00)
[2018-12-11] MEDS ORDERED: Vancomycin 1.5gm/NS Premix 275 ML IVPB ONE (15:00)
[2018-12-11] MEDS: cefTRIAXone 1 GM in D5W 55 ML IVPB SCH (15:58)
--- NOTE | 2018-12-11 16:33 | Hematology/Onc Progress Note ---
Assessment/Plan Assessment/Plan ASSESSMENT AND RECOMMENDATIONS: # Leukocytosis with a wbc of 30k likely due to infection/cellulitis --> given cefepime and vanc in er --> currently on ceph/doxy --> ceftriaxone/vanc --> monitor for improvement 30k-->25->15k --> per id care # Right greater that left swelling concerning for dvt due to wounds, cellulitis --> Begin short-acting ppx blood thinner heparin 5k sq tid ===> duplex of the lower ext ordered and neg for dvt # Anemia, mild. No w/u required at this time. --> Current Hgb >12 --> anemia panel on prn basis # Tinea pedis in right foot. --> Cont topical clotrimazole on right foot especially between the toes prn # Acute renal failure, improving. # Morbid obesity. # History of dementia. # History of hypertension. # History of CHF # Agitation as per psych, currently on ativan prn # Dvt ppx wth heparin sq Appreciate consultation greatly. Subjective Constitutional: Denies: no symptoms, chills, fever, malaise, weakness, other HEENT: Denies: no symptoms, eye pain, blurred vision, tearing, double vision, ear pain, ear discharge, nose pain, nose congestion, throat pain, throat swelling, mouth pain, mouth swelling, other Cardiovascular: Denies: no symptoms, chest pain, edema, irregular heart rate, lightheadedness, palpitations, syncope, other Respiratory: Denies: no symptoms, cough, shortness of breath, SOB with excertion, SOB at rest, sputum, wheezing, other Genitourinary: Denies: no symptoms, burning, discharge, frequency, flank pain, hematuria, incontinence, pain, urgency, other Neurologic/Psychiatric: Denies: no symptoms, anxiety, depressed, emotional problems, headache, numbness, paresthesia, pre-existing deficit, seizure, tingling, tremors, weakness, other Allergies: Coded Allergies: No Known Allergies (Unverified , 12/06/17) Subjective 12/10: on restraints, no acute events, duplex results pending 12/11: on abx, rocephin/vanc, cellulitis better, not hungry Objective Objective Current Medications Medications (Trade) Dose Ordered Sig/Arina Route PRN Reason Start Time Stop Time Status Last Admin Dose Admin Acetaminophen (Tylenol) 650 mg Q4H PRN ORAL Mild Pain/Temp > 100.5 12/11/18 15:15 01/07/19 23:14 Acetaminophen (Tylenol) 650 mg Q4H PRN RECTAL Mild Pain/Temp > 100.5 12/11/18 17:15 01/08/19 01:14 Ceftriaxone Sodium 1 gm/ Dextrose 55 ml @ 110 mls/hr Q24H IVPB 12/11/18 14:00 12/18/18 13:59 12/11/18 15:58 Docusate Sodium (Colace) 100 mg THREE TIMES A DAY ORAL 12/11/18 18:00 01/09/19 17:59 Heparin Sodium (Porcine) (Heparin 5000 units/ml) 5,000 units EVERY 12 HOURS SUBQ 12/11/18 21:00 01/10/19 12:44 Pantoprazole (Protonix) 40 mg EVERY 12 HOURS ORAL 12/11/18 21:00 01/09/19 20:59 Spironolactone (Aldactone) 50 mg DAILY ORAL 12/12/18 09:00 01/08/19 08:59 Tamsulosin HCl (Flomax) 0.4 mg BID ORAL 12/11/18 18:00 01/09/19 17:59 Vancomycin HCl (Vanco rx to dose) 1 ea DAILY PRN MISC Per rx protocol 12/11/18 14:30 01/10/19 14:29 Vancomycin HCl 1 gm/Dextrose 275 ml @ 183.708 mls/hr Q24H IVPB 12/12/18 15:00 12/17/18 14:59 Vancomycin/Sodium Chloride 275 ml @ 137.5 mls/ hr ONCE ONCE IVPB 12/11/18 15:00 12/11/18 16:59 Last 24 Hour Vital Signs Date Time Temp Pulse Resp B/P (MAP) Pulse Ox O2 Delivery O2 Flow Rate FiO2 12/11/18 15:03 78 24 97 Bi-Pap 30 12/11/18 15:01 78 24 98 Facial 30 12/11/18 12:01 67 12/11/18 12:00 97.2 67 20 101/50 (67) 97 12/11/18 09:00 Nasal Cannula 2.0 12/11/18 08:00 95 Nasal Cannula 2.0 28 12/11/18 07:47 98.0 74 20 120/50 (73) 95 12/11/18 07:44 74 12/11/18 04:00 81 12/11/18 04:00 97.8 78 18 149/63 (91) 95 12/11/18 00:00 84 12/11/18 00:00 97.9 88 18 146/60 (88) 98 12/10/18 21:00 Nasal Cannula 2.0 12/10/18 20:00 98.9 83 18 126/72 (90) 98 12/10/18 20:00 86 12/10/18 16:00 98.0 89 22 139/72 (94) 98 12/10/18 16:00 82 12/10/18 12:00 98.2 87 21 135/69 (91) 98 12/10/18 12:00 88 12/10/18 09:00 Nasal Cannula 2.0 12/10/18 08:48 97.8 90 22 143/68 (93) 98 12/10/18 08:00 96 Nasal Cannula 2.0 28 12/10/18 08:00 95 12/10/18 04:00 93 12/10/18 04:00 99.4 94 18 131/62 (85) 95 12/10/18 00:00 89 12/10/18 00:00 98.9 94 18 151/74 (99) 95 12/09/18 21:00 Nasal Cannula 2.0 12/09/18 20:00 99.0 94 18 137/78 (97) 97 12/09/18 20:00 91 Intake and Output 12/10/18 12/11/18 19:00 07:00 Intake Total 900 ml Output Total 700 ml Balance 200 ml Intake Oral 900 ml Output Urine Total 700 ml # Voids 2 # Bowel Movements 1 Labs Test 12/08/18 18:00 12/08/18 21:00 12/09/18 06:36 12/10/18 11:30 White Blood Count 30.1 K/UL (4.8-10.8) 24.5 K/UL (4.8-10.8) 21.1 K/UL (4.8-10.8) Red Blood Count 4.67 M/UL (4.70-6.10) 4.28 M/UL (4.70-6.10) 4.26 M/UL (4.70-6.10) Hemoglobin 14.6 G/DL (14.2-18.0) 13.5 G/DL (14.2-18.0) 13.3 G/DL (14.2-18.0) Hematocrit 44.4 % (42.0-52.0) 40.0 % (42.0-52.0) 40.1 % (42.0-52.0) Mean Corpuscular Volume 95 FL (80-99) 93 FL (80-99) 94 FL (80-99) Mean Corpuscular Hemoglobin 31.3 PG (27.0-31.0) 31.5 PG (27.0-31.0) 31.2 PG (27.0-31.0) Mean Corpuscular Hemoglobin Concent 33.0 G/DL (32.0-36.0) 33.7 G/DL (32.0-36.0) 33.2 G/DL (32.0-36.0) Red Cell Distribution Width 11.1 % (11.6-14.8) 11.9 % (11.6-14.8) 12.6 % (11.6-14.8) Platelet Count 214 K/UL (150-450) 201 K/UL (150-450) 200 K/UL (150-450) Mean Platelet Volume 7.2 FL (6.5-10.1) 7.2 FL (6.5-10.1) 7.3 FL (6.5-10.1) Neutrophils (%) (Auto) % (45.0-75.0) % (45.0-75.0) % (45.0-75.0) Lymphocytes (%) (Auto) % (20.0-45.0) % (20.0-45.0) % (20.0-45.0) Monocytes (%) (Auto) % (1.0-10.0) % (1.0-10.0) % (1.0-10.0) Eosinophils (%) (Auto) % (0.0-3.0) % (0.0-3.0) % (0.0-3.0) Basophils (%) (Auto) % (0.0-2.0) % (0.0-2.0) % (0.0-2.0) Differential Total Cells Counted 100 100 100 Neutrophils % (Manual) 74 % (45-75) 90 % (45-75) 87 % (45-75) Lymphocytes % (Manual) 2 % (20-45) 4 % (20-45) 7 % (20-45) Monocytes % (Manual) 5 % (1-10) 5 % (1-10) 6 % (1-10) Eosinophils % (Manual) 0 % (0-3) 0 % (0-3) 0 % (0-3) Basophils % (Manual) 0 % (0-2) 0 % (0-2) 0 % (0-2) Band Neutrophils 19 % (0-8) 1 % (0-8) 0 % (0-8) Platelet Estimate Adequate Adequate Adequate Platelet Morphology Normal Normal Normal Red Blood Cell Morphology Normal Normal Normal Prothrombin Time 10.6 SEC (9.30-11.50) Prothromb Time International Ratio 1.0 (0.9-1.1) Activated Partial Thromboplast Time 28 SEC (23-33) Sodium Level 134 MMOL/L (136-145) 138 MMOL/L (136-145) 140 MMOL/L (136-145) Potassium Level 4.7 MMOL/L (3.5-5.1) 4.1 MMOL/L (3.5-5.1) 4.2 MMOL/L (3.5-5.1) Chloride Level 98 MMOL/L (98-107) 103 MMOL/L (98-107) 106 MMOL/L (98-107) Carbon Dioxide Level 24 MMOL/L (21-32) 22 MMOL/L (21-32) 29 MMOL/L (21-32) Anion Gap 12 mmol/L (5-15) 13 mmol/L (5-15) 5 mmol/L (5-15) Blood Urea Nitrogen 24 mg/dL (7-18) 23 mg/dL (7-18) 23 mg/dL (7-18) Creatinine 1.5 MG/DL (0.55-1.30) 1.5 MG/DL (0.55-1.30) 1.4 MG/DL (0.55-1.30) Estimat Glomerular Filtration Rate mL/min (>60) mL/min (>60) mL/min (>60) Glucose Level 116 MG/DL (74-106) 104 MG/DL (74-106) 119 MG/DL (74-106) Lactic Acid Level 2.60 mmol/L (0.4-2.0) 2.30 mmol/L (0.66-2.22) Calcium Level 9.1 MG/DL (8.5-10.1) 8.6 MG/DL (8.5-10.1) 8.8 MG/DL (8.5-10.1) Total Bilirubin 0.8 MG/DL (0.2-1.0) 0.7 MG/DL (0.2-1.0) 0.4 MG/DL (0.2-1.0) Aspartate Amino Transf (AST/SGOT) 17 U/L (15-37) 29 U/L (15-37) 31 U/L (15-37) Alanine Aminotransferase (ALT/SGPT) 14 U/L (12-78) 14 U/L (12-78) 25 U/L (12-78) Alkaline Phosphatase 59 U/L (46-116) 55 U/L (46-116) 57 U/L (46-116) Total Creatine Kinase 131 U/L (26-308) Creatine Kinase MB 0.6 NG/ML (0.0-3.6) Creatine Kinase MB Relative Index 0.4 Troponin I 0.010 ng/mL (0.000-0.056) Total Protein 8.1 G/DL (6.4-8.2) 7.4 G/DL (6.4-8.2) 7.4 G/DL (6.4-8.2) Albumin 3.3 G/DL (3.4-5.0) 2.9 G/DL (3.4-5.0) 2.6 G/DL (3.4-5.0) Globulin 4.8 g/dL 4.5 g/dL 4.8 g/dL Albumin/Globulin Ratio 0.7 (1.0-2.7) 0.6 (1.0-2.7) 0.5 (1.0-2.7) Erythrocyte Sedimentation Rate 66 MM/HR (0-20) C-Reactive Protein, Quantitative 38.0 mg/dL (0.00-0.90) Test 12/10/18 14:50 12/10/18 17:58 12/11/18 06:10 12/11/18 12:33 Urine Color Yellow Urine Appearance Slightly cloudy Urine pH 5 (4.5-8.0) Urine Specific [place] 1.020 (1.005-1.035) Urine Protein 2+ (NEGATIVE) Urine Glucose (UA) Negative (NEGATIVE) Urine Ketones 2+ (NEGATIVE) Urine Blood 3+ (NEGATIVE) Urine Nitrite Negative (NEGATIVE) Urine Bilirubin Negative (NEGATIVE) Urine Urobilinogen Normal MG/DL (0.0-1.0) Urine Leukocyte Esterase 1+ (NEGATIVE) Urine RBC 0-2 /HPF (0 - 0) Urine WBC 20-30 /HPF (0 - 0) Urine Squamous Epithelial Cells Occasional /LPF Urine Bacteria Few /HPF (NONE) Troponin I 0.052 ng/mL (0.000-0.056) White Blood Count 15.4 K/UL (4.8-10.8) Red Blood Count 4.33 M/UL (4.70-6.10) Hemoglobin 13.5 G/DL (14.2-18.0) Hematocrit 41.6 % (42.0-52.0) Mean Corpuscular Volume 96 FL (80-99) Mean Corpuscular Hemoglobin 31.2 PG (27.0-31.0) Mean Corpuscular Hemoglobin Concent 32.4 G/DL (32.0-36.0) Red Cell Distribution Width 12.2 % (11.6-14.8) Platelet Count 222 K/UL (150-450) Mean Platelet Volume 7.0 FL (6.5-10.1) Neutrophils (%) (Auto) 77.3 % (45.0-75.0) Lymphocytes (%) (Auto) 10.4 % (20.0-45.0) Monocytes (%) (Auto) 10.1 % (1.0-10.0) Eosinophils (%) (Auto) 1.9 % (0.0-3.0) Basophils (%) (Auto) 0.4 % (0.0-2.0) Sodium Level 143 MMOL/L (136-145) Potassium Level 4.2 MMOL/L (3.5-5.1) Chloride Level 106 MMOL/L (98-107) Carbon Dioxide Level 30 MMOL/L (21-32) Anion Gap 7 mmol/L (5-15) Blood Urea Nitrogen 24 mg/dL (7-18) Creatinine 1.3 MG/DL (0.55-1.30) Estimat Glomerular Filtration Rate mL/min (>60) Glucose Level 111 MG/DL (74-106) Hemoglobin A1c 6.5 % (4.3-6.0) Lactic Acid Level 0.90 mmol/L (0.4-2.0) Uric Acid 6.3 MG/DL (2.6-7.2) Calcium Level 8.7 MG/DL (8.5-10.1) Phosphorus Level 2.5 MG/DL (2.5-4.9) Magnesium Level 2.1 MG/DL (1.8-2.4) Total Bilirubin 0.4 MG/DL (0.2-1.0) Gamma Glutamyl Transpeptidase 16 U/L (5-85) Aspartate Amino Transf (AST/SGOT) 22 U/L (15-37) Alanine Aminotransferase (ALT/SGPT) 23 U/L (12-78) Alkaline Phosphatase 61 U/L (46-116) C-Reactive Protein, Quantitative 34.1 mg/dL (0.00-0.90) Pro-B-Type Natriuretic Peptide 1949 pg/mL (0-125) Total Protein 7.5 G/DL (6.4-8.2) Albumin 2.5 G/DL (3.4-5.0) Globulin 5.0 g/dL Albumin/Globulin Ratio 0.5 (1.0-2.7) Triglycerides Level 94 MG/DL (30-150) Cholesterol Level 132 MG/DL (< 200) LDL Cholesterol 69 mg/dL (<100) HDL Cholesterol 23 MG/DL (40-60) Cholesterol/HDL Ratio 5.7 (3.3-4.4) Thyroid Stimulating Hormone (TSH) 2.067 uiU/mL (0.358-3.740) Arterial Blood pH 7.338 (7.350-7.450) Arterial Blood Partial Pressure CO2 54.0 mmHg (35.0-45.0) Arterial Blood Partial Pressure O2 88.1 mmHg (75.0-100.0) Arterial Blood HCO3 28.3 mmol/L (22.0-26.0) Arterial Blood Oxygen Saturation 96.5 % (95-100) Arterial Blood Base Excess 1.5 (-2-2) [place] Test Positive Test 12/11/18 13:29 12/11/18 16:10 Urine Color Pale yellow Urine Appearance Clear Urine pH 5 (4.5-8.0) Urine Specific [place] 1.020 (1.005-1.035) Urine Protein 2+ (NEGATIVE) Urine Glucose (UA) Negative (NEGATIVE) Urine Ketones Negative (NEGATIVE) Urine Blood 2+ (NEGATIVE) Urine Nitrite Negative (NEGATIVE) Urine Bilirubin Negative (NEGATIVE) Urine Urobilinogen Normal MG/DL (0.0-1.0) Urine Leukocyte Esterase Negative (NEGATIVE) Urine RBC 2-4 /HPF (0 - 0) Urine WBC 2-4 /HPF (0 - 0) Urine Squamous Epithelial Cells Occasional /LPF Urine Amorphous Sediment Few /LPF (NONE) Urine Bacteria Occasional /HPF (NONE) Urine Fine Granular Casts 0-2 /LPF (NONE) Arterial Blood pH 7.365 (7.350-7.450) Arterial Blood Partial Pressure CO2 55.6 mmHg (35.0-45.0) Arterial Blood Partial Pressure O2 86.2 mmHg (75.0-100.0) Arterial Blood HCO3 31.1 mmol/L (22.0-26.0) Arterial Blood Oxygen Saturation 96.5 % (95-100) Arterial Blood Base Excess 4.3 (-2-2) [place] Test Positive Height (Feet): 6 Height (Inches): 0.00 Weight (Pounds): 297 Objective PHYSICAL EXAMINATION: VITAL SIGNS: reviewed GEN: No acute distress. Seems obese. Restraints++ HEAD AND NECK: No oral lesion. [place] conjunctiva. HEART: Regular. LUNGS: Clear tab ABDOMEN: Obese, soft, and nontender. EXTREMITIES: Have erythema, warmness, and edema of lower extremities b/l and multiple wounds noted SKIN: Have skin cracks between the right foot toes. Shawn Lopez MD Dec 11, 2018 16:33
[2018-12-11] MEDS ORDERED: Acetaminophen 650 MG SUPP RECTAL PRN (17:15)
--- NOTE | 2018-12-11 17:27 | Pulmonology Progress Note ---
Assessment/Plan Assessment/Plan HPI Patient is an 83 year old man admitted with lower extremity cellulitis, worsening renal function, volume overload. On antibiotics per ID. He has a past history of dementia, [facility] with fever of 102 F. Patient is morbidly obese. Patient denies chest pain, shortness of breath, palpitation , diaphoresis. Patient received Haldol and Ativan in order to calm him down prior to imaging and administration of IV medication. Noted to be more sedated today, normal accucheck, stable vital signs, mildly elevated CO2 on ABG, atelectasis on CXR RLZ. Allergies: No Known Allergies Past Medical History: Morbid obesity, Dementia, CKD, Hypertension, CHF All Other Systems: negative except mentioned in HPI Physical Exam Vital Signs Noted General Appearance: Somnolent, non-toxic, no distress, obese Head: normocephalic, atraumatic Eyes: bilateral eye normal inspection, bilateral eye PERRL ENT: hearing grossly normal, normal pharynx, no angioedema, moist mm, No LN Neck: full range of motion, supple/symm/no masses Respiratory: chest non-tender, lungs clear, normal breath sounds, no rhonchi, no wheezing Cardiovascular: regular rate, rhythm, normal HS1, HS2, no edema, no murmur, normal capillary refill Gastrointestinal: non tender, soft, obese Genitourinary: no CVA tenderness Musculoskeletal: back normal, no calf tenderness, swelling - bilateral lower extremity swelling secondary to cellulitis Neurologic: somnolent, responsive, motor strength/tone normal, moves all limbs Skin: ulcer right LE Impression: Cellulitis, possible pneumonia, antibiotics per ID Morbid Obesity Somnolence - recent sedation - now held Mildly elevated CO2 Possible Obesity hypoventilation Hypertension CHF CKD Dementia Plan IV antibiotics BiPAP 15/5 PRN/QHS Antibiotics HHN O2 for sats 90-94% PPX Monitor labs EKG Diagnostic Results EKG: Rate: normal Rhythm: NSR ST Segments: no acute changes Chest X-Ray: no consolidation, no effusion, no pneumothorax, RLZ atelectasis Subjective ROS Limited/Unobtainable: No Allergies: Coded Allergies: No Known Allergies (Unverified , 12/06/17) Objective Last 24 Hour Vital Signs Date Time Temp Pulse Resp B/P (MAP) Pulse Ox O2 Delivery O2 Flow Rate FiO2 12/11/18 15:03 78 24 97 Bi-Pap 30 12/11/18 15:01 78 24 98 Facial 30 12/11/18 12:01 67 12/11/18 12:00 97.2 67 20 101/50 (67) 97 12/11/18 09:00 Nasal Cannula 2.0 12/11/18 08:00 95 Nasal Cannula 2.0 28 12/11/18 07:47 98.0 74 20 120/50 (73) 95 12/11/18 07:44 74 12/11/18 04:00 81 12/11/18 04:00 97.8 78 18 149/63 (91) 95 12/11/18 00:00 84 12/11/18 00:00 97.9 88 18 146/60 (88) 98 12/10/18 21:00 Nasal Cannula 2.0 12/10/18 20:00 98.9 83 18 126/72 (90) 98 12/10/18 20:00 86 Intake and Output 12/10/18 12/11/18 19:00 07:00 Intake Total 900 ml Output Total 700 ml Balance 200 ml Intake Oral 900 ml Output Urine Total 700 ml # Voids 2 # Bowel Movements 1 Microbiology Date/Time Source Procedure Growth Status 12/08/18 18:15 Blood Blood Culture - Preliminary NO GROWTH AFTER 24 HOURS Resulted 12/08/18 18:00 Blood Blood Culture - Preliminary NO GROWTH AFTER 24 HOURS Resulted 12/08/18 18:00 Nasal Nares MRSA Culture - Final NO METHICILLIN RESISTANT STAPH AUREUS... Complete 12/10/18 14:50 Urine,Clean Catch Urine Culture - Preliminary NO GROWTH Resulted 12/08/18 18:00 Rectum VRE Culture - Final NO VANCOMYCIN RESISTANT ENTEROCOCCUS ... Complete 12/08/18 18:00 Rectum - Final NO CARBAPENEM-RESISTANT ENTEROBACTERI... Complete Laboratory Tests 12/10/18 17:58: Troponin I 0.052 12/11/18 06:10: White Blood Count 15.4H, Red Blood Count 4.33L, Hemoglobin 13.5L, Hematocrit 41.6L, Mean Corpuscular Volume 96, Mean Corpuscular Hemoglobin 31.2H, Mean Corpuscular Hemoglobin Concent 32.4, Red Cell Distribution Width 12.2, Platelet Count 222, Mean Platelet Volume 7.0, Neutrophils (%) (Auto) 77.3H, Lymphocytes ( %) (Auto) 10.4L, Monocytes (%) (Auto) 10.1H, Eosinophils (%) (Auto) 1.9, Basophils (%) (Auto) 0.4, Sodium Level 143, Potassium Level 4.2, Chloride Level 106, Carbon Dioxide Level 30, Anion Gap 7, Blood Urea Nitrogen 24H, Creatinine 1.3, Estimat Glomerular Filtration Rate , Glucose Level 111H, Hemoglobin A1c 6.5H, Lactic Acid Level 0.90, Uric Acid 6.3, Calcium Level 8.7, Phosphorus Level 2.5, Magnesium Level 2.1, Total Bilirubin 0.4, Gamma Glutamyl Transpeptidase 16, Aspartate Amino Transf (AST/SGOT) 22, Alanine Aminotransferase (ALT/SGPT) 23, Alkaline Phosphatase 61, C-Reactive Protein, Quantitative 34.1H, Pro-B-Type Natriuretic Peptide 1949H, Total Protein 7.5, Albumin 2.5L, Globulin 5.0, Albumin/Globulin Ratio 0.5L, Triglycerides Level 94 , Cholesterol Level 132, LDL Cholesterol 69, HDL Cholesterol 23L, Cholesterol/ HDL Ratio 5.7H, Thyroid Stimulating Hormone (TSH) 2.067 12/11/18 12:33: Arterial Blood pH 7.338L, Arterial Blood Partial Pressure CO2 54.0H, Arterial Blood Partial Pressure O2 88.1, Arterial Blood HCO3 28.3H, Arterial Blood Oxygen Saturation 96.5, Arterial Blood Base Excess 1.5, Quinton Test Positive 12/11/18 13:29: Urine Color Pale yellow, Urine Appearance Clear, Urine pH 5, Urine Specific [place] 1.020, Urine Protein 2+H, Urine Glucose (UA) Negative, Urine Ketones Negative, Urine Blood 2+H, Urine Nitrite Negative, Urine Bilirubin Negative, Urine Urobilinogen Normal, Urine Leukocyte Esterase Negative, Urine RBC 2-4H, Urine WBC 2-4, Urine Squamous Epithelial Cells Occasional, Urine Amorphous Sediment FewH, Urine Bacteria Occasional, Urine Fine Granular Casts 0-2H 12/11/18 16:10: Arterial Blood pH 7.365, Arterial Blood Partial Pressure CO2 55.6*H, Arterial Blood Partial Pressure O2 86.2, Arterial Blood HCO3 31.1H, Arterial Blood Oxygen Saturation 96.5, Arterial Blood Base Excess 4.3H, Quinton Test Positive Current Medications Medications (Trade) Dose Ordered Sig/Arina Route PRN Reason Start Time Stop Time Status Last Admin Dose Admin Acetaminophen (Tylenol) 650 mg Q4H PRN ORAL Mild Pain/Temp > 100.5 12/11/18 15:15 01/07/19 23:14 Acetaminophen (Tylenol) 650 mg Q4H PRN RECTAL Mild Pain/Temp > 100.5 12/11/18 17:15 01/08/19 01:14 Ceftriaxone Sodium 1 gm/ Dextrose 55 ml @ 110 mls/hr Q24H IVPB 12/11/18 14:00 12/18/18 13:59 12/11/18 15:58 Docusate Sodium (Colace) 100 mg THREE TIMES A DAY ORAL 12/11/18 18:00 01/09/19 17:59 Heparin Sodium (Porcine) (Heparin 5000 units/ml) 5,000 units EVERY 12 HOURS SUBQ 12/11/18 21:00 01/10/19 12:44 Pantoprazole (Protonix) 40 mg EVERY 12 HOURS ORAL 12/11/18 21:00 01/09/19 20:59 Spironolactone (Aldactone) 50 mg DAILY ORAL 12/12/18 09:00 01/08/19 08:59 Tamsulosin HCl (Flomax) 0.4 mg BID ORAL 12/11/18 18:00 01/09/19 17:59 Vancomycin HCl (Vanco rx to dose) 1 ea DAILY PRN MISC Per rx protocol 12/11/18 14:30 01/10/19 14:29 Vancomycin HCl 1 gm/Dextrose 275 ml @ 183.708 mls/hr Q24H IVPB 12/12/18 15:00 12/17/18 14:59 Musa Gordillo MD Dec 11, 2018 17:27
--- NOTE | 2018-12-11 17:40 | General Progress Note ---
Assessment/Plan Problem List: (1) Cellulitis ICD Codes: L03.90 - Cellulitis, unspecified SNOMED: 867188835 (2) Fever ICD Codes: R50.9 - Fever, unspecified SNOMED: 415577928 (3) Elevated WBCs ICD Codes: D72.829 - Elevated white blood cell count, unspecified SNOMED: 063087158, 188644141 (4) Hypoalbuminemia ICD Codes: E88.09 - Other disorders of plasma-protein metabolism, not elsewhere classified SNOMED: 642687304 (5) Sepsis ICD Codes: A41.9 - Sepsis, unspecified organism SNOMED: 69601442 Status: progressing, deteriorating Assessment/Plan: lethargic ams transfered to yin consulted dr rosado for ams and dr jeffery stroud psych meds dc zyperxa in lieu of ams reviewed chart and labs Subjective Allergies: Coded Allergies: No Known Allergies (Unverified , 12/06/17) Objective Last 24 Hour Vital Signs Date Time Temp Pulse Resp B/P (MAP) Pulse Ox O2 Delivery O2 Flow Rate FiO2 12/11/18 17:33 67 12/11/18 15:03 78 24 97 Bi-Pap 30 12/11/18 15:01 78 24 98 Facial 30 12/11/18 12:01 67 12/11/18 12:00 97.2 67 20 101/50 (67) 97 12/11/18 09:00 Nasal Cannula 2.0 12/11/18 08:00 95 Nasal Cannula 2.0 28 12/11/18 07:47 98.0 74 20 120/50 (73) 95 12/11/18 07:44 74 12/11/18 04:00 81 12/11/18 04:00 97.8 78 18 149/63 (91) 95 12/11/18 00:00 84 12/11/18 00:00 97.9 88 18 146/60 (88) 98 12/10/18 21:00 Nasal Cannula 2.0 12/10/18 20:00 98.9 83 18 126/72 (90) 98 12/10/18 20:00 86 Intake and Output 12/10/18 12/11/18 18:59 06:59 Intake Total 900 ml Output Total 700 ml Balance 200 ml Intake Oral 900 ml Output Urine Total 700 ml # Voids 2 # Bowel Movements 1 Laboratory Tests 12/10/18 17:58: Troponin I 0.052 12/11/18 06:10: White Blood Count 15.4H, Red Blood Count 4.33L, Hemoglobin 13.5L, Hematocrit 41.6L, Mean Corpuscular Volume 96, Mean Corpuscular Hemoglobin 31.2H, Mean Corpuscular Hemoglobin Concent 32.4, Red Cell Distribution Width 12.2, Platelet Count 222, Mean Platelet Volume 7.0, Neutrophils (%) (Auto) 77.3H, Lymphocytes ( %) (Auto) 10.4L, Monocytes (%) (Auto) 10.1H, Eosinophils (%) (Auto) 1.9, Basophils (%) (Auto) 0.4, Sodium Level 143, Potassium Level 4.2, Chloride Level 106, Carbon Dioxide Level 30, Anion Gap 7, Blood Urea Nitrogen 24H, Creatinine 1.3, Estimat Glomerular Filtration Rate , Glucose Level 111H, Hemoglobin A1c 6.5H, Lactic Acid Level 0.90, Uric Acid 6.3, Calcium Level 8.7, Phosphorus Level 2.5, Magnesium Level 2.1, Total Bilirubin 0.4, Gamma Glutamyl Transpeptidase 16, Aspartate Amino Transf (AST/SGOT) 22, Alanine Aminotransferase (ALT/SGPT) 23, Alkaline Phosphatase 61, C-Reactive Protein, Quantitative 34.1H, Pro-B-Type Natriuretic Peptide 1949H, Total Protein 7.5, Albumin 2.5L, Globulin 5.0, Albumin/Globulin Ratio 0.5L, Triglycerides Level 94 , Cholesterol Level 132, LDL Cholesterol 69, HDL Cholesterol 23L, Cholesterol/ HDL Ratio 5.7H, Thyroid Stimulating Hormone (TSH) 2.067 12/11/18 12:33: Arterial Blood pH 7.338L, Arterial Blood Partial Pressure CO2 54.0H, Arterial Blood Partial Pressure O2 88.1, Arterial Blood HCO3 28.3H, Arterial Blood Oxygen Saturation 96.5, Arterial Blood Base Excess 1.5, Quinton Test Positive 12/11/18 13:29: Urine Color Pale yellow, Urine Appearance Clear, Urine pH 5, Urine Specific [place] 1.020, Urine Protein 2+H, Urine Glucose (UA) Negative, Urine Ketones Negative, Urine Blood 2+H, Urine Nitrite Negative, Urine Bilirubin Negative, Urine Urobilinogen Normal, Urine Leukocyte Esterase Negative, Urine RBC 2-4H, Urine WBC 2-4, Urine Squamous Epithelial Cells Occasional, Urine Amorphous Sediment FewH, Urine Bacteria Occasional, Urine Fine Granular Casts 0-2H 12/11/18 16:10: Arterial Blood pH 7.365, Arterial Blood Partial Pressure CO2 55.6*H, Arterial Blood Partial Pressure O2 86.2, Arterial Blood HCO3 31.1H, Arterial Blood Oxygen Saturation 96.5, Arterial Blood Base Excess 4.3H, Quinton Test Positive Height (Feet): 6 Height (Inches): 0.00 Weight (Pounds): 297 Respiratory/Chest: lungs clear Abdomen: soft Patric Alonso MD Dec 11, 2018 17:39
--- NOTE | 2018-12-11 19:22 | NUR ---
NURSE NOTES: Report received from BEN Bhatt. Observed pt sleeping in the bed. No signs of pain noted. On O2 2L NC, with no signs of SOB. SR on classroom monitor Condom cath intact, draining well. IV on L AC 22G, SL. No acute distress noted at this time. Bed in the lowest position. Side rails up x3. Will continue to monitor.
--- NOTE | 2018-12-11 19:29 | NUR ---
NURSE NOTES: Informed Dr. Gordillo that patient is now more alert, A&O x 3, c/o bipap being painful on face, pt requesting to take off. Informed Dr. Gordillo of ABG results of pH 7.365, pCO2 55.6, pO2 86.2, HCO3 31.1, and O2 saturation of 96.5. Dr. Gordillo acknowledged and ordered to change Bipap setting to 15/5 FiO2 30% QHS and PRN. Keep SpO2 90-94%. And informed Dr. Gordillo of x 1 accuchek result of 83 mg/dL. Dr. Gordillo acknowledged. Orders entered, noted, and carried out. Will continue to monitor patient.
--- NOTE | 2018-12-11 19:30 | NUR ---
HAND-OFF: Report given to BEN Tom.
--- NOTE | 2018-12-11 21:15 | Consultation ---
DATE OF CONSULTATION: 12/11/2018 CARDIOLOGY CONSULTATION CONSULTING PHYSICIAN: Mikey Snyder M.D. REFERRING PHYSICIAN: Patric Alonso M.D. REASON FOR CONSULTATION: Frequent PVC and cardiac arrhythmias. HISTORY OF PRESENT ILLNESS: The patient is a 83-year-old gentleman with history of morbid obesity, dementia, hypertension, history of right leg cellulitis in the previous admission November 2017 as well as chronic kidney disease. The patient is a [facility] resident, was admitted for fever of 102.4 and leukocytosis 30,000 and bilateral lower extremity cellulitis, pain and swelling. The patient at the time of my evaluation is confused, poorly responsive and restrained. REVIEW OF SYSTEMS: Cannot be obtained. PAST MEDICAL HISTORY: Hypertension, morbid obesity, dementia, right leg cellulitis, chronic kidney disease. ALLERGIES: He has no known drug allergies. MEDICATIONS: Per reconciliation. SOCIAL HISTORY: half-way resident. Does not smoke or drink alcohol or use any drugs. PHYSICAL EXAMINATION: VITAL SIGNS: Show blood pressure is 101/50, pulse 67, respirations 18, and temperature 97.2. HEAD AND NECK: Showed no JVD. LUNGS: Decreased breath sounds. CARDIOVASCULAR: Regular S1 and S2 with no gallop. ABDOMEN: Soft. EXTREMITIES: Bilateral 2+ pitting edema and cellulitis. LABORATORY AND DIAGNOSTIC DATA: His labs show white count was initially 30,000 and today 15.4, hemoglobin 13.5, hematocrit 41.6, and platelet count of 222. Sodium is 142, potassium 4.2, BUN of 24, creatinine 1.3, and glucose of 111. His troponin negative x2. EKG shows sinus rhythm with right bundle-branch block and left anterior fascicular block. The telemetry strip showed frequent runs of PVCs. ASSESSMENT AND PLAN: 1. Frequent PVCs. We will get an echocardiogram to evaluate for ejection fraction and wall motion abnormality. The preliminary echocardiogram likely showed ejection fraction of 60%. He already ruled out for myocardial infarction. Keep the magnesium more than 2 and potassium more than 4. 2. Hypertension on Aldactone 50 mg daily and . 3. Bilateral lower extremity cellulitis and sepsis, on vancomycin per ID. 4. Altered mental status. 5. 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 Thank you very much for allowing me to participate in the care of this patient. Please do not hesitate to contact me for any questions regarding my evaluation. Sincerely, Mikey Snyder M.D. DR: Mack JOB#: [id number] CC:
--- NOTE | 2018-12-11 21:30 | NUR ---
NURSE NOTES: Pt refused PO med. Explained benefits and risks, still refused. Will continue to monitor.
[2018-12-11] MEDS: Heparin 5000 units/ml inj SUBQ SCH (22:15)
[2018-12-12] VITALS: BP 155/87
--- NOTE | 2018-12-12 01:00 | NUR ---
NURSE NOTES: Observed pt lying in the bed, sleeping. No acute distress noted at this time. Pt on Bipap 15/5 30%. Will continue to monitor.
--- NOTE | 2018-12-12 01:30 | Consultation ---
DATE OF CONSULTATION: 12/11/2018 NOTE: POOR AUDIO NEUROLOGIC CONSULTATION CONSULTING PHYSICIAN: Ever John M.D. CHIEF COMPLAINT: The patient is an 83-year-old right-handed white male with a history of dementia, psychosis, hypertension, hyperlipidemia, who was admitted with a chief complaint of fever of 101 at his nursing facility and found to have leukocytosis and azotemia on admission. History was obtained from the chart since the patient give a history. The patient was admitted with the above complaint. He was noted to be agitated and refused to . He had mainly left lower extremity cellulitis. On admission, his CBC revealed a white count of 30,100, which is slowly going down today is 15,400. His hemoglobin was 14.6. He had a left shift is adequate. Sodium . His hemoglobin did decrease today at 13.45. Chemistry, his sodium is 134 with a BUN of 24 and a creatinine of 1.5, and glucose is 116. Liver function tests are normal. Total albumin is 3.3, total protein is 8.1. Lactic acid level 1 . Lactic acid done today . Magnesium is 2.1. C-reactive protein is high at 38. TSH is 2.067. The patient's urinalysis from admission on 12/10/2018 revealed 20 to 30 wbc's per high-power field, few bacteria, pH of 5, specific gravity normal, 2+ ketones, 3+ blood. PT and PTT were normal. Blood gas today revealed a pH of 7.33, pCO2 54, pO2 of . The patient's chest x-ray revealed no acute disease, 12/09/2018, suspected pulmonary vascular congestion. The patient's chest x-ray revealed low lung volumes, mildly increased interstitial markings, and subsegmental atelectasis is present. Infiltrate in the right lung base. The patient did see Infectious Disease and placed on Rocephin, vancomycin, and Keflex. The patient is placed on doxycycline 100 mg every 12 hours on 12/09/2018, Keflex 500 mg q.8 hours, and he had lorazepam 2 doses given and started on mirtazapine 7.5 mg 2 doses given and Zyprexa 2.5 mg 3 times a day, Protonix, Bactrim, Flomax, and Lasix. His Keflex has been discontinued as well as doxycycline. The patient has seen multiple consults and he saw Dr. Fischer, probably a psychiatrist on 12/09/2018. He noted note, he had no history of illicit drug use or alcohol and is uncooperative, agitated, mental status examination, he is confused with a flat affect. There is no homicidal or suicidal ideations. He has also had dementia with behavior disturbance, acute metabolic encephalopathy, and was started on Zyprexa and Remeron at bedtime . The patient was also seen by Dr. Lopez, secondary school special ed teacher and is under the care of Dr. Patric Alonso. He also saw Dr. Jay Rashid yesterday and Dr. Lovelace, Infectious Disease. The patient did have a left leg x-ray, which revealed subcutaneous edema with his cellulitis. The patient saw Dr. Jay Rashid because he had lactic acidosis and history of chronic kidney disease. I was asked to see the patient because of altered mental status beginning earlier today with increasing lethargy. There is no known family history of neurologic disease. PAST MEDICAL HISTORY/PAST MEDICAL ILLNESSES: 1. History of hypertension. 2. History of dementia, 3. History of psychosis. 4. History of probable . 5. History of tobacco use, but he denied it to me. ALLERGIES: No known allergies. HABITS: See above. Apparently is a nondrinker. SOCIAL HISTORY: Lives in the longterm, otherwise not available. FAMILY HISTORY: Unavailable. REVIEW OF SYSTEMS: Cannot be obtained. PHYSICAL EXAMINATION: GENERAL: He is a well-developed, very obese man, lying in bed, lethargic, but awakens with voice, but will fall back to the commode and sleeping. VITAL SIGNS: Blood pressure is 120/50, pulse is 74, temperature is 98 degrees, SpO2 is 95%, HEENT: Examination of head, ears, eyes, nose, mouth, and throat reveals poor dentition. NECK: Supple. Carotids were +1 and could not be auscultated. LUNGS: Clear at least on the left side and he may have had decreased breath sounds on the right. CARDIOVASCULAR: were not visualized. The patient's heart tones are decreased. ABDOMEN: His abdomen is obese. Bowel sounds intact. There is no tenderness, organomegaly could not be appreciated. BACK: Could not be tested. EXTREMITIES: He has hyperemia of his left foot up across the ankle to the distal part of the left lower leg with some stasis changes in the right side. NEUROLOGIC EXAMINATION: MENTAL STATUS: He is awake and opens his eyes to voice. Date, he knows the month or the year. Place, he knew he was in the hospital. Person, he knew his own name. His speech was dysarthric. He did know his date was 1935. He could spell world forwards, but on spelling it backwards spelled "ldwor." CRANIAL NERVE EXAMINATION: CRANIAL NERVES II: Visual camargo are grossly intact to confrontation. CRANIAL NERVES III, IV, AND : He had full horizontal extraocular motility to the right and to the left and he has moved over to the left, it was not full, but was pretty much conjugate. His vertical extraocular motility could not or would not be done. His pupils are about 3 mm, round, sluggishly reactive to light. CRANIAL NERVE V: Corneal sensation was intact to fine touch. CRANIAL NERVE VII: There maybe a decreased right nasolabial fold CRANIAL NERVE VIII: Auditory acuity is grossly intact. CRANIAL NERVES IX AND X: Gag is decreased bilaterally. CRANIAL NERVE XI AND XII: He could stick out his tongue to command. Cranial Nerve XI could not be tested MUSCLE EXAMINATION: Muscle bulk was difficult to evaluate because of his obesity. Tone revealed paratonia, but decreased tone. Extremity strength, he could move his upper extremities equally fairly symmetrically with strength. There is at least 4/5. In the lower extremities, he moves his legs equally symmetrically. REFLEXES: +1 in the upper extremities, 0 at the knees and ankles. He had withdrawal on testing for Babinski response. COORDINATION: Could not be done. GAIT AND STATION: He is bedbound. SENSORY EXAM: He was intact to deep pain in the lower extremities. IMPRESSION: 1. 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 His deterioration is due to metabolic encephalopathy, most likely obviously sepsis. before he came in, his sepsis has improved along with his renal function has improved. His deterioration since being in the hospital or since yesterday is probably related to a combination of factors probably may be aspiration pneumonia. 2. increase his antibiotic regimen to cover bacterial meningitis including . As far as herpes simplex encephalitis is concerned, lumbar puncture. I would probably also do a CT scan of his brain since he has some minor focal features. The patient also has possibly some mild asterixis and he has elevated pCO2 and this probably is contributing. This maybe contributing to his altered mental status as well cause a respiratory depression medications including the Zyprexa and possibly he actually has. So, in summary, the patient's acute deterioration is probably related to medication effect as well as possible aspiration pneumonia. 3. His medications should be withdrawn at this time. We order a CT scan to exclude the possibility of subdural, although his pupils are reactive, was strongly suggestive of metabolic problem, however, there is some mild focal features had small stroke or strokes in the past. The patient's metabolic encephalopathy can fluctuate, on Remeron can be a powerful sleep agent. PLANS: 1. Discontinue drugs. 2. Protect the patient's airway and repeat chest x-ray. 3. Treat as if he has bacterial meningitis. 4. CT scan of the brain with lumbar puncture if possible. Thank you for this interesting case, Dr. Alonso. Ever John MD DR: BRENDA JOB#: [id number] CC:
[2018-12-12 04:00] VITALS: BP 134/93
--- NOTE | 2018-12-12 05:15 | NUR ---
NURSE NOTES: Pt still on Bipap, saturating at 98% noted. SR on trust evaluation supervisor. Bed bath given. Reposition done. Will continue to monitor.
[2018-12-12 06:49] LABS: CHOLESTEROL 143 MG/DL (< 200); HDL CHOLESTEROL 18 MG/DL (40-60); TRIGLYCERIDES 122 MG/DL (30-150)
--- NOTE | 2018-12-12 07:04 | NUR ---
HAND-OFF: Report given to BEN Bhatt.
--- NOTE | 2018-12-12 07:12 | NUR ---
NURSE NOTES: Received report from BEN Tom. Patient is resting in bed, in stable condition. No s/sx of SOB, breathing is even and unlabored. Bed is in lowest position, brakes engaged. Call light is kept within easy reach. Soft wrist restraints in place as ordered. Will continue to monitor patient.
[2018-12-12 08:00] VITALS: BP 148/69
[2018-12-12] MEDS: Docusate 100mg cap ORAL SCH ×3 (08:02→17:42)
[2018-12-12] MEDS: Heparin 5000 units/ml inj SUBQ SCH ×2 (08:03→20:44)
[2018-12-12] MEDS: Spironolactone 50mg tab ORAL SCH (08:03)
[2018-12-12] MEDS: Tamsulosin 0.4mg cap ORAL SCH ×2 (08:03→17:42)
--- NOTE | 2018-12-12 08:04 | NUR ---
NURSE NOTES: Patient resting in bed, watching television. Patient states, "feeling better". Patient is A&O x 2-3 with moments of forgetfulness. Reality orientation provided. Noted.
--- NOTE | 2018-12-12 09:10 | Infectious Diseases Prog Note ---
Assessment/Plan Assessment/Plan IMPRESSION: Sepsis, fever, leukocytosis Cellulitis of left lower extremity. Dementia, morbid obesity, hypertension, lactic acidosis, chronic kidney disease. Altered mental status RECOMMENDATION: continue Rocephin & Vancomycin Cultures are negative so far Subjective ROS Limited/Unobtainable: Yes Neurologic: Reports: other - more alert & resposive today, on restraint Allergies: Coded Allergies: No Known Allergies (Unverified , 12/06/17) Objective Vital Signs Last 24 Hour Vital Signs Date Time Temp Pulse Resp B/P (MAP) Pulse Ox O2 Delivery O2 Flow Rate FiO2 12/12/18 05:25 73 17 99 Facial 30 12/12/18 04:00 97.5 75 28 134/93 (107) 100 12/12/18 04:00 Bi-pap 12/12/18 04:00 72 12/12/18 02:58 68 17 99 Facial 30 12/12/18 01:06 77 17 99 Facial 30 12/12/18 00:00 Nasal Cannula 2.0 12/12/18 00:00 70 12/12/18 00:00 97.8 74 20 155/87 (109) 98 12/11/18 23:57 71 30 97 Facial 30 12/11/18 21:00 Nasal Cannula 2.0 12/11/18 20:00 98.7 66 20 133/62 (85) 96 12/11/18 20:00 65 12/11/18 19:39 97 Nasal Cannula 2.0 28 12/11/18 17:33 67 12/11/18 16:00 99.0 71 20 137/62 (87) 98 12/11/18 15:03 78 24 97 Bi-Pap 30 12/11/18 15:01 78 24 98 Facial 30 12/11/18 15:00 99.5 71 20 108/41 (63) 93 12/11/18 12:01 67 12/11/18 12:00 97.2 67 20 101/50 (67) 97 Height (Feet): 6 Height (Inches): 0.00 Weight (Pounds): 297 General Appearance: no acute distress HEENT: mucous membranes moist Respiratory/Chest: lungs clear Cardiovascular: normal rate Abdomen: soft, non tender Extremities: no edema Skin: rash, other - erythena of left barrios Neurologic/Psychiatric: alert, responsive Microbiology Date/Time Source Procedure Growth Status 12/10/18 14:50 Urine,Clean Catch Urine Culture - Final NO GROWTH AFTER 48 HOURS Complete Laboratory Tests Test 12/11/18 12:33 12/11/18 13:29 12/11/18 16:10 12/12/18 04:37 Arterial Blood pH 7.338 (7.350-7.450) 7.365 (7.350-7.450) Arterial Blood Partial Pressure CO2 54.0 mmHg (35.0-45.0) H 55.6 mmHg (35.0-45.0) *H Arterial Blood Partial Pressure O2 88.1 mmHg (75.0-100.0) 86.2 mmHg (75.0-100.0) Arterial Blood HCO3 28.3 mmol/L (22.0-26.0) H 31.1 mmol/L (22.0-26.0) H Arterial Blood Oxygen Saturation 96.5 % (95-100) 96.5 % (95-100) Arterial Blood Base Excess 1.5 (-2-2) 4.3 (-2-2) H Quinton Test Positive Positive Urine Color Pale yellow Urine Appearance Clear Urine pH 5 (4.5-8.0) Urine Specific [place] 1.020 (1.005-1.035) Urine Protein 2+ (NEGATIVE) H Urine Glucose (UA) Negative (NEGATIVE) Urine Ketones Negative (NEGATIVE) Urine Blood 2+ (NEGATIVE) H Urine Nitrite Negative (NEGATIVE) Urine Bilirubin Negative (NEGATIVE) Urine Urobilinogen Normal MG/DL (0.0-1.0) Urine Leukocyte Esterase Negative (NEGATIVE) Urine RBC 2-4 /HPF (0 - 0) H Urine WBC 2-4 /HPF (0 - 0) Urine Squamous Epithelial Cells Occasional /LPF Urine Amorphous Sediment Few /LPF (NONE) H Urine Bacteria Occasional /HPF (NONE) Urine Fine Granular Casts 0-2 /LPF (NONE) H Troponin I 0.013 ng/mL (0.000-0.056) Triglycerides Level 122 MG/DL (30-150) Cholesterol Level 143 MG/DL (< 200) LDL Cholesterol 87 mg/dL (<100) HDL Cholesterol 18 MG/DL (40-60) L Cholesterol/HDL Ratio 7.9 (3.3-4.4) H Thyroid Stimulating Hormone (TSH) 1.495 uiU/mL (0.358-3.740) Free Thyroxine 0.87 NG/DL (0.76-1.46) Current Medications Medications (Trade) Dose Ordered Sig/Arina Route PRN Reason Start Time Stop Time Status Last Admin Dose Admin Acetaminophen (Tylenol) 650 mg Q4H PRN ORAL Mild Pain/Temp > 100.5 12/11/18 15:15 01/07/19 23:14 Acetaminophen (Tylenol) 650 mg Q4H PRN RECTAL Mild Pain/Temp > 100.5 12/11/18 17:15 01/08/19 01:14 Ceftriaxone Sodium 1 gm/ Dextrose 55 ml @ 110 mls/hr Q24H IVPB 12/11/18 14:00 12/18/18 13:59 12/11/18 15:58 Docusate Sodium (Colace) 100 mg THREE TIMES A DAY ORAL 12/11/18 18:00 01/09/19 17:59 Heparin Sodium (Porcine) (Heparin 5000 units/ml) 5,000 units EVERY 12 HOURS SUBQ 12/11/18 21:00 01/10/19 12:44 12/11/18 22:15 Pantoprazole (Protonix) 40 mg EVERY 12 HOURS ORAL 12/11/18 21:00 01/09/19 20:59 12/12/18 08:03 Spironolactone (Aldactone) 50 mg DAILY ORAL 12/12/18 09:00 01/08/19 08:59 12/12/18 08:03 Tamsulosin HCl (Flomax) 0.4 mg BID ORAL 12/11/18 18:00 01/09/19 17:59 12/12/18 08:03 Vancomycin HCl (Vanco rx to dose) 1 ea DAILY PRN MISC Per rx protocol 12/11/18 14:30 01/10/19 14:29 Vancomycin HCl 1 gm/Dextrose 275 ml @ 183.708 mls/hr Q24H IVPB 12/12/18 15:00 12/17/18 14:59 Robert Lovelace MD Dec 12, 2018 09:10
[2018-12-12 12:00] VITALS: BP 139/66
--- NOTE | 2018-12-12 12:00 | NUR ---
NURSE NOTES: Patient requested to place them on chair. Placed patient on chair with assistance on 2L nasal cannula. Patient states being dizzy, assessed SpO2, results revealed 82%. Immediately returned patient to bed on 2LNC. Patient begins to state feeling better, SpO2 is 98%. Noted. Will continue to monitor patient.
[2018-12-12] MEDS: cefTRIAXone 1 GM in D5W 55 ML IVPB SCH (13:13)
[2018-12-12] MEDS ORDERED: cefTRIAXone 1 GM in D5W 55 ML IVPB SCH (14:00)
[2018-12-12] MEDS: Vancomycin 1 GM in D5W 275 ML IVPB SCH (14:30)
--- NOTE | 2018-12-12 14:30 | Pulmonology Progress Note ---
Assessment/Plan Assessment/Plan HPI Patient is an 83 year old man admitted with lower extremity cellulitis, worsening renal function, volume overload. On antibiotics per ID. He has a past history of dementia, admitted from [facility] with fever of 102 F. Patient is morbidly obese. Patient denies chest pain, shortness of breath, palpitation , diaphoresis. Less sedated today, stable vital signs, mildly elevated CO2 on ABG, atelectasis on CXR RLZ. Allergies: No Known Allergies Past Medical History: Morbid obesity, Dementia, CKD, Hypertension, CHF All Other Systems: negative except mentioned in HPI Physical Exam Vital Signs Noted General Appearance: Awake, non-toxic, no distress, obese Head: normocephalic, atraumatic Eyes: bilateral eye normal inspection, bilateral eye PERRL ENT: hearing grossly normal, normal pharynx, no angioedema, moist mm, No LN Neck: full range of motion, supple/symm/no masses Respiratory: chest non-tender, lungs clear, normal breath sounds, no rhonchi, no wheezing Cardiovascular: regular rate, rhythm, normal HS1, HS2, no edema, no murmur, normal capillary refill Gastrointestinal: non tender, soft, obese Genitourinary: no CVA tenderness Musculoskeletal: back normal, no calf tenderness, swelling - bilateral lower extremity swelling secondary to cellulitis Neurologic: responsive, motor strength/tone normal, moves all limbs Skin: ulcer right LE Impression: Cellulitis, possible pneumonia, antibiotics per ID Morbid Obesity Somnolence - improved Mildly elevated CO2 Possible Obesity hypoventilation Hypertension CHF CKD Dementia Plan IV antibiotics BiPAP 15/5 PRN/QHS Antibiotics HHN O2 for sats 90-94% PPX Monitor labs EKG Diagnostic Results EKG: Rate: normal Rhythm: NSR ST Segments: no acute changes Chest X-Ray: no consolidation, no effusion, no pneumothorax, RLZ atelectasis Subjective ROS Limited/Unobtainable: No Allergies: Coded Allergies: No Known Allergies (Unverified , 12/06/17) Objective Last 24 Hour Vital Signs Date Time Temp Pulse Resp B/P (MAP) Pulse Ox O2 Delivery O2 Flow Rate FiO2 12/12/18 12:00 Bi-pap 12/12/18 12:00 98.1 67 22 139/66 (90) 97 12/12/18 12:00 63 12/12/18 08:00 Bi-pap 12/12/18 08:00 65 12/12/18 08:00 98.7 72 22 148/69 (95) 96 12/12/18 05:25 73 17 99 Facial 30 12/12/18 04:00 97.5 75 28 134/93 (107) 100 12/12/18 04:00 Bi-pap 12/12/18 04:00 72 12/12/18 02:58 68 17 99 Facial 30 12/12/18 01:06 77 17 99 Facial 30 12/12/18 00:00 Nasal Cannula 2.0 12/12/18 00:00 70 12/12/18 00:00 97.8 74 20 155/87 (109) 98 12/11/18 23:57 71 30 97 Facial 30 12/11/18 21:00 Nasal Cannula 2.0 12/11/18 20:00 98.7 66 20 133/62 (85) 96 12/11/18 20:00 65 12/11/18 19:39 97 Nasal Cannula 2.0 28 12/11/18 17:33 67 12/11/18 16:00 99.0 71 20 137/62 (87) 98 12/11/18 15:03 78 24 97 Bi-Pap 30 12/11/18 15:01 78 24 98 Facial 30 12/11/18 15:00 99.5 71 20 108/41 (63) 93 Intake and Output 12/11/18 12/12/18 19:00 07:00 Intake Total 500 ml Output Total 400 ml 400 ml Balance -400 ml 100 ml Intake Oral 500 ml Output Urine Total 400 ml 400 ml # Voids 5 Microbiology Date/Time Source Procedure Growth Status 12/10/18 14:50 Urine,Clean Catch Urine Culture - Final NO GROWTH AFTER 48 HOURS Complete Laboratory Tests 12/11/18 16:10: Arterial Blood pH 7.365, Arterial Blood Partial Pressure CO2 55.6*H, Arterial Blood Partial Pressure O2 86.2, Arterial Blood HCO3 31.1H, Arterial Blood Oxygen Saturation 96.5, Arterial Blood Base Excess 4.3H, Quinton Test Positive 12/12/18 04:37: Troponin I 0.013, Triglycerides Level 122, Cholesterol Level 143, LDL Cholesterol 87, HDL Cholesterol 18L, Cholesterol/HDL Ratio 7.9H, Thyroid Stimulating Hormone (TSH) 1.495, Free Thyroxine 0.87 Current Medications Medications (Trade) Dose Ordered Sig/Arina Route PRN Reason Start Time Stop Time Status Last Admin Dose Admin Acetaminophen (Tylenol) 650 mg Q4H PRN ORAL Mild Pain/Temp > 100.5 12/11/18 15:15 01/07/19 23:14 Acetaminophen (Tylenol) 650 mg Q4H PRN RECTAL Mild Pain/Temp > 100.5 12/11/18 17:15 01/08/19 01:14 Ceftriaxone Sodium 1 gm/ Dextrose 55 ml @ 110 mls/hr Q24H IVPB 12/11/18 14:00 12/18/18 13:59 12/12/18 13:13 Docusate Sodium (Colace) 100 mg THREE TIMES A DAY ORAL 12/11/18 18:00 01/09/19 17:59 Heparin Sodium (Porcine) (Heparin 5000 units/ml) 5,000 units EVERY 12 HOURS SUBQ 12/11/18 21:00 01/10/19 12:44 12/11/18 22:15 Pantoprazole (Protonix) 40 mg EVERY 12 HOURS ORAL 12/11/18 21:00 01/09/19 20:59 12/12/18 08:03 Spironolactone (Aldactone) 50 mg DAILY ORAL 12/12/18 09:00 01/08/19 08:59 12/12/18 08:03 Tamsulosin HCl (Flomax) 0.4 mg BID ORAL 12/11/18 18:00 01/09/19 17:59 12/12/18 08:03 Vancomycin HCl (Vanco rx to dose) 1 ea DAILY PRN MISC Per rx protocol 12/11/18 14:30 01/10/19 14:29 Vancomycin HCl 1 gm/Dextrose 275 ml @ 183.708 mls/hr Q24H IVPB 12/12/18 15:00 12/17/18 14:59 Musa Gordillo MD Dec 12, 2018 14:30
--- NOTE | 2018-12-12 14:49 | Cardiology Report ---
APPROVED REPORT EKG Measurement Heart [id number] Sinus rhythm with 1st degree AV block Right bundle branch block Left anterior fascicular block Bifascicular block Left ventricular hypertrophy with repolarization abnormality Cannot rule out Septal infarct, age undetermined Abnormal ECG
[2018-12-12] MEDS ORDERED: Vancomycin 1gm/D5W 275ml IVPB SCH ×2 (15:00)
--- NOTE | 2018-12-12 15:14 | Cardiology Report ---
APPROVED REPORT EXAM: Two-dimensional and M-mode echocardiogram with Doppler and color Doppler. INDICATION Congestive Heart Failure M-Mode DIMENSIONS IVSd1.6 (0.7-1.1cm)Left Atrium (MM)3.9 (1.6-4.0cm) LVDd5.5 (3.5-5.6cm)Aortic Root4.1 (2.0-3.7cm) PWd1.4 (0.7-1.1cm)Aortic Cusp Exc.2.2 (1.5-2.0cm) IVSs2.2 cm LVDs3.7 (2.5-4.0cm) PWs1.6 cm Technically difficult study due to patient body habitus. Study quality precludes accurate assessment of regional wall motion. Normal left ventricular chamber size, there is posteropr and basal to mid inferoseptal wall hypokinesia. Ischemic cardiomyopathy cannot be excluded. Left ventricular ejection fraction estimated to be 50%. Mild evidence of left ventricular hypertrophy. Anterior Echo-free space, may be due to pericardial fat or effusion. Mild left atrial enlargement. Right cardiac chamber sizes are within normal limits. Focal aortic valve sclerosis with adequate cusp excursion. Thickened mitral valve leaflets with normal excursion. Mitral annulus and aortic root calcification. Pulmonic valve not well visualized. Normal tricuspid valve structure. IVC is normal in size without physiological collapse. A color flow and spectral Doppler study was performed and revealed: No aortic regurgitation. Trace mitral regurgitation. Mitral diastolic velocities suggest mild left ventricular diastolic dysfunction (Grade I). Trace tricuspid regurgitation. Tricuspid systolic velocities suggests peak right ventricular systolic pressure of 27 mmHg. No pulmonic regurgitation present.
--- NOTE | 2018-12-12 15:31 | General Progress Note ---
Assessment/Plan Problem List: (1) Cellulitis ICD Codes: L03.90 - Cellulitis, unspecified SNOMED: 047491852 (2) Fever ICD Codes: R50.9 - Fever, unspecified SNOMED: 883271143 (3) Elevated WBCs ICD Codes: D72.829 - Elevated white blood cell count, unspecified SNOMED: 173945461, 236712185 (4) Hypoalbuminemia ICD Codes: E88.09 - Other disorders of plasma-protein metabolism, not elsewhere classified SNOMED: 316378223 (5) Sepsis ICD Codes: A41.9 - Sepsis, unspecified organism SNOMED: 48839145 Status: progressing, deteriorating Assessment/Plan: lethargic ams transfered to yin more alert sepsis afebrile reviewed chart and labs and meds Subjective ROS Limited/Unobtainable: Yes Allergies: Coded Allergies: No Known Allergies (Unverified , 12/06/17) Objective Last 24 Hour Vital Signs Date Time Temp Pulse Resp B/P (MAP) Pulse Ox O2 Delivery O2 Flow Rate FiO2 12/12/18 12:00 Bi-pap 12/12/18 12:00 98.1 67 22 139/66 (90) 97 12/12/18 12:00 63 12/12/18 08:00 Bi-pap 12/12/18 08:00 65 12/12/18 08:00 98.7 72 22 148/69 (95) 96 12/12/18 07:35 96 Nasal Cannula 2.0 28 12/12/18 05:25 73 17 99 Facial 30 12/12/18 04:00 97.5 75 28 134/93 (107) 100 12/12/18 04:00 Bi-pap 12/12/18 04:00 72 12/12/18 02:58 68 17 99 Facial 30 12/12/18 01:06 77 17 99 Facial 30 12/12/18 00:00 Nasal Cannula 2.0 12/12/18 00:00 70 12/12/18 00:00 97.8 74 20 155/87 (109) 98 12/11/18 23:57 71 30 97 Facial 30 12/11/18 21:00 Nasal Cannula 2.0 12/11/18 20:00 98.7 66 20 133/62 (85) 96 12/11/18 20:00 65 12/11/18 19:39 97 Nasal Cannula 2.0 28 12/11/18 17:33 67 12/11/18 16:00 99.0 71 20 137/62 (87) 98 Intake and Output 12/11/18 12/12/18 19:00 07:00 Intake Total 500 ml Output Total 400 ml 400 ml Balance -400 ml 100 ml Intake Oral 500 ml Output Urine Total 400 ml 400 ml # Voids 5 Laboratory Tests 12/11/18 16:10: Arterial Blood pH 7.365, Arterial Blood Partial Pressure CO2 55.6*H, Arterial Blood Partial Pressure O2 86.2, Arterial Blood HCO3 31.1H, Arterial Blood Oxygen Saturation 96.5, Arterial Blood Base Excess 4.3H, Quinton Test Positive 12/12/18 04:37: Troponin I 0.013, Triglycerides Level 122, Cholesterol Level 143, LDL Cholesterol 87, HDL Cholesterol 18L, Cholesterol/HDL Ratio 7.9H, Thyroid Stimulating Hormone (TSH) 1.495, Free Thyroxine 0.87 Height (Feet): 6 Height (Inches): 0.00 Weight (Pounds): 297 General Appearance: confused Cardiovascular: normal rate Respiratory/Chest: lungs clear Patric Alonso MD Dec 12, 2018 15:31
--- NOTE | 2018-12-12 15:39 | Surgery Progress Note ---
Surgery Progress Note Subjective Additional Comments No acute events. Labs improving. Exam stable. Imaging noted, labs noted, micro noted Objective Last 24 Hour Vital Signs Date Time Temp Pulse Resp B/P (MAP) Pulse Ox O2 Delivery O2 Flow Rate FiO2 12/12/18 12:00 Bi-pap 12/12/18 12:00 98.1 67 22 139/66 (90) 97 12/12/18 12:00 63 12/12/18 08:00 Bi-pap 12/12/18 08:00 65 12/12/18 08:00 98.7 72 22 148/69 (95) 96 12/12/18 07:35 96 Nasal Cannula 2.0 28 12/12/18 05:25 73 17 99 Facial 30 12/12/18 04:00 97.5 75 28 134/93 (107) 100 12/12/18 04:00 Bi-pap 12/12/18 04:00 72 12/12/18 02:58 68 17 99 Facial 30 12/12/18 01:06 77 17 99 Facial 30 12/12/18 00:00 Nasal Cannula 2.0 12/12/18 00:00 70 12/12/18 00:00 97.8 74 20 155/87 (109) 98 12/11/18 23:57 71 30 97 Facial 30 12/11/18 21:00 Nasal Cannula 2.0 12/11/18 20:00 98.7 66 20 133/62 (85) 96 12/11/18 20:00 65 12/11/18 19:39 97 Nasal Cannula 2.0 28 12/11/18 17:33 67 12/11/18 16:00 99.0 71 20 137/62 (87) 98 I&O Intake and Output 12/11/18 12/12/18 19:00 07:00 Intake Total 500 ml Output Total 400 ml 400 ml Balance -400 ml 100 ml Intake Oral 500 ml Output Urine Total 400 ml 400 ml # Voids 5 Dressing: saturated Wound: other Drains: other Cardiovascular: RSR Respiratory: clear, decreased breath sounds Abdomen: soft, present bowel sounds, non-distended Extremities: no cyanosis, other Laboratory Tests Test 12/11/18 16:10 12/12/18 04:37 Arterial Blood pH 7.365 (7.350-7.450) Arterial Blood Partial Pressure CO2 55.6 mmHg (35.0-45.0) *H Arterial Blood Partial Pressure O2 86.2 mmHg (75.0-100.0) Arterial Blood HCO3 31.1 mmol/L (22.0-26.0) H Arterial Blood Oxygen Saturation 96.5 % (95-100) Arterial Blood Base Excess 4.3 (-2-2) H Quinton Test Positive Troponin I 0.013 ng/mL (0.000-0.056) Triglycerides Level 122 MG/DL (30-150) Cholesterol Level 143 MG/DL (< 200) LDL Cholesterol 87 mg/dL (<100) HDL Cholesterol 18 MG/DL (40-60) L Cholesterol/HDL Ratio 7.9 (3.3-4.4) H Thyroid Stimulating Hormone (TSH) 1.495 uiU/mL (0.358-3.740) Free Thyroxine 0.87 NG/DL (0.76-1.46) Plan Problems: (1) Cellulitis Assessment & Plan: Right Tib fib xrays nml Left Tib fix xrays w/ There is subcutaneous edema involving the left leg. There is no fracture. The bones are osteopenic. exam with cellulitis. no abscess palpable on left right with small healing scab posterior cont IV Abx will follow clinically (2) Elevated WBCs (3) Sepsis Assessment & Plan: possible etiology lower extremity cellulitis cont abx no abscess to drain currently. mainly phlegmona UA CXR blood cultures AM labs cont abx as per ID thank you (4) Fever Yayo Callaway Dec 12, 2018 15:39
[2018-12-12] MEDS ORDERED: Tubing IV Secondary IV ONE (15:48)
[2018-12-12 16:00] VITALS: BP 115/65
--- NOTE | 2018-12-12 17:00 | NUR ---
NURSE NOTES: Dr. Gordillo seen and examined patient at bedside. Informed MD that patient experiences dizziness when transferring from bed to chair with 2 L NC SpO2 80%, when back on bed 2L NC SpO2 96%. Dr. Gordillo acknowledged. No new orders given at this time. Will continue to monitor patient.
--- NOTE | 2018-12-12 19:00 | NUR ---
NURSE NOTES: Received hand off report from Miller Colmenares RN. Pt is in bed, awake, oriented to self only. Pt is confused and agitated . Per rhythm strip pt is SR. Pt o2 @2 lpm via nasal cannula, o2 sat at 96%. Pt has PIV in left AC 22g, saline locked, flushed with NS, patent. Pt is fall risk precaustion, bed alarm on, yellow socks and gown, call light within reach, two side rails up. bed inn lowest position. Pt educated on using call light for assistance. Pt appears to resting comfortably, no signs or symptoms of distress noted peterson this time. Will continue to monitor closely.
--- NOTE | 2018-12-12 19:25 | NUR ---
HAND-OFF: Report given to BEN Barnes.
--- NOTE | 2018-12-12 19:50 | NUR ---
RESPIRATORY NOTE: Pt refused to wear Bipap NOC. Pt stated he has no respiratory distress and will inform nurse if he feels the need for it. Pt currently on 2L nasal cannula. SPO2 at 98%, no sob and no respiratory distress noted. Bipap on stand by at bedside. Nurse Kiwon aware. Will continue monitoring pt closely.
[2018-12-12 20:00] VITALS: BP 130/64
[2018-12-13] VITALS: BP 147/69
--- NOTE | 2018-12-13 00:01 | NUR ---
NURSE NOTES: Pt is awake and confused. [place] removal of restraints ineffective: pt removed PIV and clothing. Replaced bilateral soft wrist restraints and received new continuation order. Educated pt on use and removal requirements, but pt unable to comprehend. Peripheral pulses present, sensation is normal, skin is intact at restraint sites. Pt denies any pain, no signs or symptoms of pain or distress noted at this time. Will continue to monitor closely.
[2018-12-13 04:00] VITALS: BP 136/70
--- NOTE | 2018-12-13 07:33 | NUR ---
HAND-OFF: Report given to Frank Manuel RN. Pt is stable, no signs or symptoms of distress.
[2018-12-13 08:00] VITALS: BP 144/65
--- NOTE | 2018-12-13 08:00 | NUR ---
NURSE NOTES: Pt awake/alert/disoriented in bed breathing easily on 2 lpm nasal cannula. Pt denies SOB and denies pain at this time. Vital signs stable with SR @ 67 on monitor. Pt has bilateral soft wrist restraints due to pulling out IV access and attempting to leave the bed. Good distal motor/capillary/neuro in both hands. IV access right wrist flushed with 10 ml NS and locked. Pt has condom cath in place. Bed left in low position, exit alarm set, side rails up x 3 and call light left near pt's hand.
[2018-12-13] MEDS: Heparin 5000 units/ml inj SUBQ SCH ×2 (08:34→21:00)
[2018-12-13] MEDS: Tamsulosin 0.4mg cap ORAL SCH ×2 (08:41→18:00)
[2018-12-13] MEDS: Spironolactone 50mg tab ORAL SCH (08:41)
[2018-12-13] MEDS: Docusate 100mg cap ORAL SCH ×3 (08:41→18:00)
[2018-12-13 09:14] LABS: BASOPHILS % (AUTO) 2.3 % (0.0-2.0); EOSINOPHILS % (AUTO) 8.9 % (0.0-3.0); HEMATOCRIT 37.5 % (42.0-52.0); HEMOGLOBIN 12.2 G/DL (14.2-18.0); LYMPHOCYTES % (AUTO) 16.2 % (20.0-45.0); MEAN CORPUSCULAR VOLUME 95 FL (80-99); MONOCYTES % (AUTO) 11.4 % (1.0-10.0); NEUTROPHILS % (AUTO) 61.2 % (45.0-75.0); PLATELET COUNT 239 K/UL (150-450); RED BLOOD COUNT 3.94 M/UL (4.70-6.10); WHITE BLOOD COUNT 10.8 K/UL (4.8-10.8)
[2018-12-13 09:31] LABS: AMMONIA 31 umol/L (11-32)
[2018-12-13 09:39] LABS: ALANINE AMINOTRANSFERASE 23 U/L (12-78); ALBUMIN 2.2 G/DL (3.4-5.0); ALBUMIN/GLOBULIN RATIO 0.5 (1.0-2.7); ALKALINE PHOSPHATASE 48 U/L (46-116); ASPARTATE AMINO TRANSFERASE 16 U/L (15-37); BILIRUBIN,TOTAL 0.5 MG/DL (0.2-1.0); BLOOD UREA NITROGEN 27 mg/dL (7-18); CALCIUM 8.7 MG/DL (8.5-10.1); CARBON DIOXIDE 33 MMOL/L (21-32); CREATININE 1.1 MG/DL (0.55-1.30); PHOSPHORUS 2.6 MG/DL (2.5-4.9)
[2018-12-13 09:44] LABS: CHLORIDE 104 MMOL/L (98-107); POTASSIUM 3.8 MMOL/L (3.5-5.1); SODIUM 140 MMOL/L (136-145)
--- NOTE | 2018-12-13 11:10 | NUR ---
CASE MANAGEMENT:REVIEW 12/13/18 SI: SEPSIS. CELLULITIS CHANGE OF CONDITION OVER WEEKEND ~ AMS, LETHARGIC 97.8 68 20 136/70 98% ON 2L/NC BUN+27 IS: IV VANCOMYCIN Q24 IV ROCEPHIN Q24 ALDACTONE PO QD HEPARIN SQ Q12 PROTONIX PO Q12 FLOMAX PO BID : STEP DOWN UNIT DCP: FROM [facility]
--- NOTE | 2018-12-13 11:35 | Cardiology Report ---
APPROVED REPORT EKG Measurement Heart [id number] 160P [id number] Multifocal atrial rhythm Left axis deviation Right bundle branch block Minimal voltage criteria for LVH, may be normal variant T wave abnormality, consider lateral ischemia Abnormal ECG
--- NOTE | 2018-12-13 11:37 | Infectious Diseases Prog Note ---
Assessment/Plan Assessment/Plan antibiotics : vancomycin iv, ceftriaxone A 1. left leg cellulitis 2. gram negative UTI 3. leucocytosis resolved 4. hypertension 5. dementia P 1. continue iv vancomycin, ceftriaxone 2. will follow up cultures Subjective Constitutional: Denies: fever, chills Respiratory: Denies: shortness of breath, dry cough Gastrointestinal/Abdominal: Denies: nausea, vomiting, diarrhea Musculoskeletal: Denies: pain Allergies: Coded Allergies: No Known Allergies (Unverified , 12/06/17) Objective Vital Signs Last 24 Hour Vital Signs Date Time Temp Pulse Resp B/P (MAP) Pulse Ox O2 Delivery O2 Flow Rate FiO2 12/13/18 11:16 Nasal Cannula 2.0 12/13/18 08:00 68 15 144/65 (91) 98 12/13/18 08:00 69 12/13/18 08:00 Nasal Cannula 2.0 12/13/18 04:00 97.8 68 20 136/70 (92) 98 12/13/18 04:00 61 12/13/18 04:00 Nasal Cannula 2.0 12/13/18 00:00 98.1 64 18 147/69 (95) 98 12/13/18 00:00 Nasal Cannula 2.0 12/13/18 00:00 64 12/12/18 20:00 60 12/12/18 20:00 Nasal Cannula 2.0 12/12/18 20:00 98.1 64 20 130/64 (86) 96 12/12/18 19:50 98 Nasal Cannula 2.0 28 12/12/18 16:00 61 12/12/18 16:00 Bi-pap 12/12/18 16:00 97.9 67 22 115/65 (82) 98 12/12/18 12:00 Bi-pap 12/12/18 12:00 98.1 67 22 139/66 (90) 97 12/12/18 12:00 63 Height (Feet): 6 Height (Inches): 0.00 Weight (Pounds): 297 Respiratory/Chest: lungs clear Cardiovascular: normal rate, regular rhythm, no gallop/murmur Abdomen: soft, non tender Extremities: other - + edema, left leg erythema Microbiology Date/Time Source Procedure Growth Status 12/11/18 13:29 Urine,Clean Catch Urine Culture - Preliminary Gram Negative Demond Resulted 12/10/18 14:50 Urine,Clean Catch Urine Culture - Final NO GROWTH AFTER 48 HOURS Complete Laboratory Tests Test 12/13/18 08:40 White Blood Count 10.8 K/UL (4.8-10.8) Red Blood Count 3.94 M/UL (4.70-6.10) L Hemoglobin 12.2 G/DL (14.2-18.0) L Hematocrit 37.5 % (42.0-52.0) L Mean Corpuscular Volume 95 FL (80-99) Mean Corpuscular Hemoglobin 31.0 PG (27.0-31.0) Mean Corpuscular Hemoglobin Concent 32.5 G/DL (32.0-36.0) Red Cell Distribution Width 12.0 % (11.6-14.8) Platelet Count 239 K/UL (150-450) Mean Platelet Volume 6.3 FL (6.5-10.1) L Neutrophils (%) (Auto) 61.2 % (45.0-75.0) Lymphocytes (%) (Auto) 16.2 % (20.0-45.0) L Monocytes (%) (Auto) 11.4 % (1.0-10.0) H Eosinophils (%) (Auto) 8.9 % (0.0-3.0) H Basophils (%) (Auto) 2.3 % (0.0-2.0) H Sodium Level 140 MMOL/L (136-145) Potassium Level 3.8 MMOL/L (3.5-5.1) Chloride Level 104 MMOL/L (98-107) Carbon Dioxide Level 33 MMOL/L (21-32) H Blood Urea Nitrogen 27 mg/dL (7-18) H Creatinine 1.1 MG/DL (0.55-1.30) Estimat Glomerular Filtration Rate mL/min (>60) Glucose Level 107 MG/DL (74-106) H Uric Acid 5.6 MG/DL (2.6-7.2) Calcium Level 8.7 MG/DL (8.5-10.1) Phosphorus Level 2.6 MG/DL (2.5-4.9) Magnesium Level 2.1 MG/DL (1.8-2.4) Total Bilirubin 0.5 MG/DL (0.2-1.0) Aspartate Amino Transf (AST/SGOT) 16 U/L (15-37) Alanine Aminotransferase (ALT/SGPT) 23 U/L (12-78) Alkaline Phosphatase 48 U/L (46-116) Ammonia 31 umol/L (11-32) C-Reactive Protein, Quantitative 16.0 mg/dL (0.00-0.90) H Pro-B-Type Natriuretic Peptide 580 pg/mL (0-125) H Total Protein 6.8 G/DL (6.4-8.2) Albumin 2.2 G/DL (3.4-5.0) L Globulin 4.6 g/dL Albumin/Globulin Ratio 0.5 (1.0-2.7) L Current Medications Medications (Trade) Dose Ordered Sig/Arina Route PRN Reason Start Time Stop Time Status Last Admin Dose Admin Acetaminophen (Tylenol) 650 mg Q4H PRN ORAL Mild Pain/Temp > 100.5 12/11/18 15:15 01/07/19 23:14 12/13/18 00:55 Acetaminophen (Tylenol) 650 mg Q4H PRN RECTAL Mild Pain/Temp > 100.5 12/11/18 17:15 01/08/19 01:14 Ceftriaxone Sodium 1 gm/ Dextrose 55 ml @ 110 mls/hr Q24H IVPB 12/11/18 14:00 12/18/18 13:59 12/12/18 13:13 Docusate Sodium (Colace) 100 mg THREE TIMES A DAY ORAL 12/11/18 18:00 01/09/19 17:59 Heparin Sodium (Porcine) (Heparin 5000 units/ml) 5,000 units EVERY 12 HOURS SUBQ 12/11/18 21:00 01/10/19 12:44 12/12/18 20:44 Pantoprazole (Protonix) 40 mg EVERY 12 HOURS ORAL 12/11/18 21:00 01/09/19 20:59 12/12/18 20:42 Spironolactone (Aldactone) 50 mg DAILY ORAL 12/12/18 09:00 01/08/19 08:59 12/12/18 08:03 Tamsulosin HCl (Flomax) 0.4 mg BID ORAL 12/11/18 18:00 01/09/19 17:59 12/12/18 08:03 Vancomycin HCl (Vanco rx to dose) 1 ea DAILY PRN MISC Per rx protocol 12/11/18 14:30 01/10/19 14:29 Vancomycin HCl 1 gm/Dextrose 275 ml @ 183.708 mls/hr Q24H IVPB 12/12/18 15:00 12/17/18 14:59 12/12/18 14:30 Una Brito MD Dec 13, 2018 11:37
[2018-12-13 12:00] VITALS: BP 144/79
--- NOTE | 2018-12-13 13:11 | Nephrology Progress Note ---
Assessment/Plan Problem List: (1) Renal failure (ARF), acute on chronic (2) Cellulitis (3) Elevated WBCs (4) Sepsis (5) UTI (urinary tract infection) Assessment presents with Fever and high WBCs and LE cellulitis Cr 1.5: h/o CKD no urine analysis yet Dementia HTN Obesity Lactic acidosis Plan Antibiotics slow diurese avoid nephrotoxics 2D echo monitor renal parameters UA noted one dose Lasix IV Subjective ROS Limited/Unobtainable: No Constitutional: Reports: malaise Objective Objective Last 24 Hour Vital Signs Date Time Temp Pulse Resp B/P (MAP) Pulse Ox O2 Delivery O2 Flow Rate FiO2 12/13/18 11:16 Nasal Cannula 2.0 12/13/18 08:00 68 15 144/65 (91) 98 12/13/18 08:00 69 12/13/18 08:00 Nasal Cannula 2.0 12/13/18 04:00 97.8 68 20 136/70 (92) 98 12/13/18 04:00 61 12/13/18 04:00 Nasal Cannula 2.0 12/13/18 00:00 98.1 64 18 147/69 (95) 98 12/13/18 00:00 Nasal Cannula 2.0 12/13/18 00:00 64 12/12/18 20:00 60 12/12/18 20:00 Nasal Cannula 2.0 12/12/18 20:00 98.1 64 20 130/64 (86) 96 12/12/18 19:50 98 Nasal Cannula 2.0 28 12/12/18 16:00 61 12/12/18 16:00 Bi-pap 12/12/18 16:00 97.9 67 22 115/65 (82) 98 Intake and Output 12/12/18 12/13/18 19:00 07:00 Intake Total 240 ml Output Total 400 ml 550 ml Balance -400 ml -310 ml Intake Oral 240 ml Output Urine Total 400 ml 550 ml # Voids 1 # Bowel Movements 1 Laboratory Tests 12/13/18 08:40: White Blood Count 10.8, Red Blood Count 3.94L, Hemoglobin 12.2L, Hematocrit 37.5L, Mean Corpuscular Volume 95, Mean Corpuscular Hemoglobin 31.0, Mean Corpuscular Hemoglobin Concent 32.5, Red Cell Distribution Width 12.0, Platelet Count 239, Mean Platelet Volume 6.3L, Neutrophils (%) (Auto) 61.2, Lymphocytes ( %) (Auto) 16.2L, Monocytes (%) (Auto) 11.4H, Eosinophils (%) (Auto) 8.9H, Basophils (%) (Auto) 2.3H, Sodium Level 140, Potassium Level 3.8, Chloride Level 104, Carbon Dioxide Level 33H, Blood Urea Nitrogen 27H, Creatinine 1.1, Estimat Glomerular Filtration Rate , Glucose Level 107H, Uric Acid 5.6, Calcium Level 8.7, Phosphorus Level 2.6, Magnesium Level 2.1, Total Bilirubin 0.5, Aspartate Amino Transf (AST/SGOT) 16, Alanine Aminotransferase (ALT/SGPT) 23, Alkaline Phosphatase 48, Ammonia 31, C-Reactive Protein, Quantitative 16.0H, Pro -B-Type Natriuretic Peptide 580H, Total Protein 6.8, Albumin 2.2L, Globulin 4.6 , Albumin/Globulin Ratio 0.5L Height (Feet): 6 Height (Inches): 0.00 Weight (Pounds): 297 General Appearance: confused Cardiovascular: tachycardia Respiratory/Chest: decreased breath sounds Abdomen: distended Jay Rashid MD Dec 13, 2018 13:11
--- NOTE | 2018-12-13 13:31 | Hematology/Onc Progress Note ---
Assessment/Plan Assessment/Plan ASSESSMENT AND RECOMMENDATIONS: # Leukocytosis with a wbc of 30k likely due to infection/cellulitis --> given cefepime and vanc in er --> currently on ceph/doxy --> ceftriaxone/vanc --> monitor for improvement 30k-->25->15k --> per id care # Right greater that left swelling concerning for dvt due to wounds, cellulitis --> Begin short-acting ppx blood thinner heparin 5k sq tid ===> duplex of the lower ext ordered and neg for dvt # Anemia, mild. No w/u required at this time. --> Current Hgb >12 --> anemia panel on prn basis --> no evidence of hemolysis is noted # Tinea pedis in right foot. --> Cont topical clotrimazole on right foot especially between the toes prn # Acute renal failure, improving. # Morbid obesity. # History of dementia. # History of hypertension. # CHF cards eval prn # Agitation as per psych, currently on ativan prn # Dvt ppx wth heparin sq Appreciate consultation greatly. Subjective HEENT: Denies: no symptoms, eye pain, blurred vision, tearing, double vision, ear pain, ear discharge, nose pain, nose congestion, throat pain, throat swelling, mouth pain, mouth swelling, other Cardiovascular: Denies: no symptoms, chest pain, edema, irregular heart rate, lightheadedness, palpitations, syncope, other Respiratory: Denies: no symptoms, cough, shortness of breath, SOB with excertion, SOB at rest, sputum, wheezing, other Gastrointestinal/Abdominal: Denies: no symptoms, abdomen distended, abdominal pain, black stools, tarry stools, blood in stool, constipated, diarrhea, difficulty swallowing, nausea, poor appetite, poor fluid intake, rectal bleeding , vomiting, other Genitourinary: Denies: no symptoms, burning, discharge, frequency, flank pain, hematuria, incontinence, pain, urgency, other Neurologic/Psychiatric: Denies: no symptoms, anxiety, depressed, emotional problems, headache, numbness, paresthesia, pre-existing deficit, seizure, tingling, tremors, weakness, other Allergies: Coded Allergies: No Known Allergies (Unverified , 12/06/17) Subjective 12/10: on restraints, no acute events, duplex results pending 12/11: on abx, rocephin/vanc, cellulitis better, not hungry 12/13: remains on abx, confused, on restraints, agitated Objective Objective Current Medications Medications (Trade) Dose Ordered Sig/Arina Route PRN Reason Start Time Stop Time Status Last Admin Dose Admin Acetaminophen (Tylenol) 650 mg Q4H PRN ORAL Mild Pain/Temp > 100.5 12/11/18 15:15 01/07/19 23:14 12/13/18 00:55 Acetaminophen (Tylenol) 650 mg Q4H PRN RECTAL Mild Pain/Temp > 100.5 12/11/18 17:15 01/08/19 01:14 Ceftriaxone Sodium 1 gm/ Dextrose 55 ml @ 110 mls/hr Q24H IVPB 12/11/18 14:00 12/18/18 13:59 12/12/18 13:13 Docusate Sodium (Colace) 100 mg THREE TIMES A DAY ORAL 12/11/18 18:00 01/09/19 17:59 Furosemide (Lasix) 20 mg ONCE IV 12/13/18 13:15 12/13/18 14:15 Heparin Sodium (Porcine) (Heparin 5000 units/ml) 5,000 units EVERY 12 HOURS SUBQ 12/11/18 21:00 01/10/19 12:44 12/12/18 20:44 Pantoprazole (Protonix) 40 mg EVERY 12 HOURS ORAL 12/11/18 21:00 01/09/19 20:59 12/12/18 20:42 Spironolactone (Aldactone) 50 mg DAILY ORAL 12/12/18 09:00 01/08/19 08:59 12/12/18 08:03 Tamsulosin HCl (Flomax) 0.4 mg BID ORAL 12/11/18 18:00 01/09/19 17:59 12/12/18 08:03 Vancomycin HCl (Vanco rx to dose) 1 ea DAILY PRN MISC Per rx protocol 12/11/18 14:30 01/10/19 14:29 Vancomycin HCl 1 gm/Dextrose 275 ml @ 183.708 mls/hr Q24H IVPB 12/12/18 15:00 12/17/18 14:59 12/12/18 14:30 Last 24 Hour Vital Signs Date Time Temp Pulse Resp B/P (MAP) Pulse Ox O2 Delivery O2 Flow Rate FiO2 12/13/18 11:16 Nasal Cannula 2.0 12/13/18 08:00 68 15 144/65 (91) 98 12/13/18 08:00 69 12/13/18 08:00 Nasal Cannula 2.0 12/13/18 04:00 97.8 68 20 136/70 (92) 98 12/13/18 04:00 61 12/13/18 04:00 Nasal Cannula 2.0 12/13/18 00:00 98.1 64 18 147/69 (95) 98 12/13/18 00:00 Nasal Cannula 2.0 12/13/18 00:00 64 12/12/18 20:00 60 12/12/18 20:00 Nasal Cannula 2.0 12/12/18 20:00 98.1 64 20 130/64 (86) 96 12/12/18 19:50 98 Nasal Cannula 2.0 28 12/12/18 16:00 61 12/12/18 16:00 Bi-pap 12/12/18 16:00 97.9 67 22 115/65 (82) 98 12/12/18 12:00 Bi-pap 12/12/18 12:00 98.1 67 22 139/66 (90) 97 12/12/18 12:00 63 12/12/18 08:00 Bi-pap 12/12/18 08:00 65 12/12/18 08:00 98.7 72 22 148/69 (95) 96 12/12/18 07:35 96 Nasal Cannula 2.0 28 12/12/18 05:25 73 17 99 Facial 30 12/12/18 04:00 97.5 75 28 134/93 (107) 100 12/12/18 04:00 Bi-pap 12/12/18 04:00 72 12/12/18 02:58 68 17 99 Facial 30 12/12/18 01:06 77 17 99 Facial 30 12/12/18 00:00 Nasal Cannula 2.0 12/12/18 00:00 70 12/12/18 00:00 97.8 74 20 155/87 (109) 98 12/11/18 23:57 71 30 97 Facial 30 12/11/18 21:00 Nasal Cannula 2.0 12/11/18 20:00 98.7 66 20 133/62 (85) 96 12/11/18 20:00 65 12/11/18 19:39 97 Nasal Cannula 2.0 28 12/11/18 17:33 67 12/11/18 16:00 99.0 71 20 137/62 (87) 98 12/11/18 15:03 78 24 97 Bi-Pap 30 12/11/18 15:01 78 24 98 Facial 30 12/11/18 15:00 99.5 71 20 108/41 (63) 93 Intake and Output 12/12/18 12/13/18 19:00 07:00 Intake Total 240 ml Output Total 400 ml 550 ml Balance -400 ml -310 ml Intake Oral 240 ml Output Urine Total 400 ml 550 ml # Voids 1 # Bowel Movements 1 Labs Test 12/10/18 14:50 12/10/18 17:58 12/11/18 06:10 12/11/18 12:33 Urine Color Yellow Urine Appearance Slightly cloudy Urine pH 5 (4.5-8.0) Urine Specific [place] 1.020 (1.005-1.035) Urine Protein 2+ (NEGATIVE) Urine Glucose (UA) Negative (NEGATIVE) Urine Ketones 2+ (NEGATIVE) Urine Blood 3+ (NEGATIVE) Urine Nitrite Negative (NEGATIVE) Urine Bilirubin Negative (NEGATIVE) Urine Urobilinogen Normal MG/DL (0.0-1.0) Urine Leukocyte Esterase 1+ (NEGATIVE) Urine RBC 0-2 /HPF (0 - 0) Urine WBC 20-30 /HPF (0 - 0) Urine Squamous Epithelial Cells Occasional /LPF Urine Bacteria Few /HPF (NONE) Troponin I 0.052 ng/mL (0.000-0.056) White Blood Count 15.4 K/UL (4.8-10.8) Red Blood Count 4.33 M/UL (4.70-6.10) Hemoglobin 13.5 G/DL (14.2-18.0) Hematocrit 41.6 % (42.0-52.0) Mean Corpuscular Volume 96 FL (80-99) Mean Corpuscular Hemoglobin 31.2 PG (27.0-31.0) Mean Corpuscular Hemoglobin Concent 32.4 G/DL (32.0-36.0) Red Cell Distribution Width 12.2 % (11.6-14.8) Platelet Count 222 K/UL (150-450) Mean Platelet Volume 7.0 FL (6.5-10.1) Neutrophils (%) (Auto) 77.3 % (45.0-75.0) Lymphocytes (%) (Auto) 10.4 % (20.0-45.0) Monocytes (%) (Auto) 10.1 % (1.0-10.0) Eosinophils (%) (Auto) 1.9 % (0.0-3.0) Basophils (%) (Auto) 0.4 % (0.0-2.0) Sodium Level 143 MMOL/L (136-145) Potassium Level 4.2 MMOL/L (3.5-5.1) Chloride Level 106 MMOL/L (98-107) Carbon Dioxide Level 30 MMOL/L (21-32) Anion Gap 7 mmol/L (5-15) Blood Urea Nitrogen 24 mg/dL (7-18) Creatinine 1.3 MG/DL (0.55-1.30) Estimat Glomerular Filtration Rate mL/min (>60) Glucose Level 111 MG/DL (74-106) Hemoglobin A1c 6.5 % (4.3-6.0) Lactic Acid Level 0.90 mmol/L (0.4-2.0) Uric Acid 6.3 MG/DL (2.6-7.2) Calcium Level 8.7 MG/DL (8.5-10.1) Phosphorus Level 2.5 MG/DL (2.5-4.9) Magnesium Level 2.1 MG/DL (1.8-2.4) Total Bilirubin 0.4 MG/DL (0.2-1.0) Gamma Glutamyl Transpeptidase 16 U/L (5-85) Aspartate Amino Transf (AST/SGOT) 22 U/L (15-37) Alanine Aminotransferase (ALT/SGPT) 23 U/L (12-78) Alkaline Phosphatase 61 U/L (46-116) C-Reactive Protein, Quantitative 34.1 mg/dL (0.00-0.90) Pro-B-Type Natriuretic Peptide 1949 pg/mL (0-125) Total Protein 7.5 G/DL (6.4-8.2) Albumin 2.5 G/DL (3.4-5.0) Globulin 5.0 g/dL Albumin/Globulin Ratio 0.5 (1.0-2.7) Triglycerides Level 94 MG/DL (30-150) Cholesterol Level 132 MG/DL (< 200) LDL Cholesterol 69 mg/dL (<100) HDL Cholesterol 23 MG/DL (40-60) Cholesterol/HDL Ratio 5.7 (3.3-4.4) Thyroid Stimulating Hormone (TSH) 2.067 uiU/mL (0.358-3.740) Arterial Blood pH 7.338 (7.350-7.450) Arterial Blood Partial Pressure CO2 54.0 mmHg (35.0-45.0) Arterial Blood Partial Pressure O2 88.1 mmHg (75.0-100.0) Arterial Blood HCO3 28.3 mmol/L (22.0-26.0) Arterial Blood Oxygen Saturation 96.5 % (95-100) Arterial Blood Base Excess 1.5 (-2-2) [place] Test Positive Test 12/11/18 13:29 12/11/18 16:10 12/12/18 04:37 12/13/18 08:40 Urine Color Pale yellow Urine Appearance Clear Urine pH 5 (4.5-8.0) Urine Specific [place] 1.020 (1.005-1.035) Urine Protein 2+ (NEGATIVE) Urine Glucose (UA) Negative (NEGATIVE) Urine Ketones Negative (NEGATIVE) Urine Blood 2+ (NEGATIVE) Urine Nitrite Negative (NEGATIVE) Urine Bilirubin Negative (NEGATIVE) Urine Urobilinogen Normal MG/DL (0.0-1.0) Urine Leukocyte Esterase Negative (NEGATIVE) Urine RBC 2-4 /HPF (0 - 0) Urine WBC 2-4 /HPF (0 - 0) Urine Squamous Epithelial Cells Occasional /LPF Urine Amorphous Sediment Few /LPF (NONE) Urine Bacteria Occasional /HPF (NONE) Urine Fine Granular Casts 0-2 /LPF (NONE) Arterial Blood pH 7.365 (7.350-7.450) Arterial Blood Partial Pressure CO2 55.6 mmHg (35.0-45.0) Arterial Blood Partial Pressure O2 86.2 mmHg (75.0-100.0) Arterial Blood HCO3 31.1 mmol/L (22.0-26.0) Arterial Blood Oxygen Saturation 96.5 % (95-100) Arterial Blood Base Excess 4.3 (-2-2) [place] Test Positive Troponin I 0.013 ng/mL (0.000-0.056) Triglycerides Level 122 MG/DL (30-150) Cholesterol Level 143 MG/DL (< 200) LDL Cholesterol 87 mg/dL (<100) HDL Cholesterol 18 MG/DL (40-60) Cholesterol/HDL Ratio 7.9 (3.3-4.4) Thyroid Stimulating Hormone (TSH) 1.495 uiU/mL (0.358-3.740) Free Thyroxine 0.87 NG/DL (0.76-1.46) White Blood Count 10.8 K/UL (4.8-10.8) Red Blood Count 3.94 M/UL (4.70-6.10) Hemoglobin 12.2 G/DL (14.2-18.0) Hematocrit 37.5 % (42.0-52.0) Mean Corpuscular Volume 95 FL (80-99) Mean Corpuscular Hemoglobin 31.0 PG (27.0-31.0) Mean Corpuscular Hemoglobin Concent 32.5 G/DL (32.0-36.0) Red Cell Distribution Width 12.0 % (11.6-14.8) Platelet Count 239 K/UL (150-450) Mean Platelet Volume 6.3 FL (6.5-10.1) Neutrophils (%) (Auto) 61.2 % (45.0-75.0) Lymphocytes (%) (Auto) 16.2 % (20.0-45.0) Monocytes (%) (Auto) 11.4 % (1.0-10.0) Eosinophils (%) (Auto) 8.9 % (0.0-3.0) Basophils (%) (Auto) 2.3 % (0.0-2.0) Sodium Level 140 MMOL/L (136-145) Potassium Level 3.8 MMOL/L (3.5-5.1) Chloride Level 104 MMOL/L (98-107) Carbon Dioxide Level 33 MMOL/L (21-32) Blood Urea Nitrogen 27 mg/dL (7-18) Creatinine 1.1 MG/DL (0.55-1.30) Estimat Glomerular Filtration Rate mL/min (>60) Glucose Level 107 MG/DL (74-106) Uric Acid 5.6 MG/DL (2.6-7.2) Calcium Level 8.7 MG/DL (8.5-10.1) Phosphorus Level 2.6 MG/DL (2.5-4.9) Magnesium Level 2.1 MG/DL (1.8-2.4) Total Bilirubin 0.5 MG/DL (0.2-1.0) Aspartate Amino Transf (AST/SGOT) 16 U/L (15-37) Alanine Aminotransferase (ALT/SGPT) 23 U/L (12-78) Alkaline Phosphatase 48 U/L (46-116) Ammonia 31 umol/L (11-32) C-Reactive Protein, Quantitative 16.0 mg/dL (0.00-0.90) Pro-B-Type Natriuretic Peptide 580 pg/mL (0-125) Total Protein 6.8 G/DL (6.4-8.2) Albumin 2.2 G/DL (3.4-5.0) Globulin 4.6 g/dL Albumin/Globulin Ratio 0.5 (1.0-2.7) Height (Feet): 6 Height (Inches): 0.00 Weight (Pounds): 297 Objective PHYSICAL EXAMINATION: VITAL SIGNS: reviewed GEN: No acute distress. Seems obese. Restraints++ HEART: Regular. LUNGS: Clear tab ABDOMEN: Obese, soft, and nontender. EXTREMITIES: Have erythema, warmness, b/l and multiple wounds noted SKIN: Have skin cracks between the right foot toes. Shawn Lopez MD Dec 13, 2018 13:31
--- NOTE | 2018-12-13 13:33 | Pulmonology Progress Note ---
Assessment/Plan Assessment/Plan HPI Patient is an 83 year old man admitted with lower extremity cellulitis, worsening renal function, volume overload. On antibiotics per ID. He has a past history of dementia, admitted from snf with fever of 102 F. Patient is morbidly obese. Patient denies chest pain, shortness of breath, palpitation , diaphoresis. Awake, stable vital signs, mildly elevated CO2 on ABG, atelectasis on CXR RLZ. Allergies: No Known Allergies Past Medical History: Morbid obesity, Dementia, CKD, Hypertension, CHF All Other Systems: negative except mentioned in HPI Physical Exam Vital Signs Noted General Appearance: Awake, non-toxic, no distress, obese Head: normocephalic, atraumatic Eyes: bilateral eye normal inspection, bilateral eye PERRL ENT: hearing grossly normal, normal pharynx, no angioedema, moist mm, No LN Neck: full range of motion, supple/symm/no masses Respiratory: chest non-tender, lungs clear, normal breath sounds, no rhonchi, no wheezing Cardiovascular: regular rate, rhythm, normal HS1, HS2, no edema, no murmur, normal capillary refill Gastrointestinal: non tender, soft, obese Genitourinary: no CVA tenderness Musculoskeletal: back normal, no calf tenderness, swelling - bilateral lower extremity swelling secondary to cellulitis Neurologic: responsive, motor strength/tone normal, moves all limbs Skin: ulcer right LE Impression: Cellulitis, possible pneumonia, antibiotics per ID Morbid Obesity Somnolence - improved Mildly elevated CO2 Possible Obesity hypoventilation Hypertension CHF CKD Dementia Plan IV antibiotics BiPAP 15/5 PRN/QHS Antibiotics HHN O2 for sats 90-94% PPX Monitor labs Will need OP sleep study EKG Diagnostic Results EKG: Rate: normal Rhythm: NSR ST Segments: no acute changes Chest X-Ray: no consolidation, no effusion, no pneumothorax, RLZ atelectasis Subjective ROS Limited/Unobtainable: No Allergies: Coded Allergies: No Known Allergies (Unverified , 12/06/17) Objective Last 24 Hour Vital Signs Date Time Temp Pulse Resp B/P (MAP) Pulse Ox O2 Delivery O2 Flow Rate FiO2 12/13/18 11:16 Nasal Cannula 2.0 12/13/18 08:00 68 15 144/65 (91) 98 12/13/18 08:00 69 12/13/18 08:00 Nasal Cannula 2.0 12/13/18 04:00 97.8 68 20 136/70 (92) 98 12/13/18 04:00 61 12/13/18 04:00 Nasal Cannula 2.0 12/13/18 00:00 98.1 64 18 147/69 (95) 98 12/13/18 00:00 Nasal Cannula 2.0 12/13/18 00:00 64 12/12/18 20:00 60 12/12/18 20:00 Nasal Cannula 2.0 12/12/18 20:00 98.1 64 20 130/64 (86) 96 12/12/18 19:50 98 Nasal Cannula 2.0 28 12/12/18 16:00 61 12/12/18 16:00 Bi-pap 12/12/18 16:00 97.9 67 22 115/65 (82) 98 Intake and Output 12/12/18 12/13/18 19:00 07:00 Intake Total 240 ml Output Total 400 ml 550 ml Balance -400 ml -310 ml Intake Oral 240 ml Output Urine Total 400 ml 550 ml # Voids 1 # Bowel Movements 1 Microbiology Date/Time Source Procedure Growth Status 12/11/18 13:29 Urine,Clean Catch Urine Culture - Preliminary Gram Negative Demond Resulted 12/10/18 14:50 Urine,Clean Catch Urine Culture - Final NO GROWTH AFTER 48 HOURS Complete Laboratory Tests 12/13/18 08:40: White Blood Count 10.8, Red Blood Count 3.94L, Hemoglobin 12.2L, Hematocrit 37.5L, Mean Corpuscular Volume 95, Mean Corpuscular Hemoglobin 31.0, Mean Corpuscular Hemoglobin Concent 32.5, Red Cell Distribution Width 12.0, Platelet Count 239, Mean Platelet Volume 6.3L, Neutrophils (%) (Auto) 61.2, Lymphocytes ( %) (Auto) 16.2L, Monocytes (%) (Auto) 11.4H, Eosinophils (%) (Auto) 8.9H, Basophils (%) (Auto) 2.3H, Sodium Level 140, Potassium Level 3.8, Chloride Level 104, Carbon Dioxide Level 33H, Blood Urea Nitrogen 27H, Creatinine 1.1, Estimat Glomerular Filtration Rate , Glucose Level 107H, Uric Acid 5.6, Calcium Level 8.7, Phosphorus Level 2.6, Magnesium Level 2.1, Total Bilirubin 0.5, Aspartate Amino Transf (AST/SGOT) 16, Alanine Aminotransferase (ALT/SGPT) 23, Alkaline Phosphatase 48, Ammonia 31, C-Reactive Protein, Quantitative 16.0H, Pro -B-Type Natriuretic Peptide 580H, Total Protein 6.8, Albumin 2.2L, Globulin 4.6 , Albumin/Globulin Ratio 0.5L Current Medications Medications (Trade) Dose Ordered Sig/Arina Route PRN Reason Start Time Stop Time Status Last Admin Dose Admin Acetaminophen (Tylenol) 650 mg Q4H PRN ORAL Mild Pain/Temp > 100.5 12/11/18 15:15 01/07/19 23:14 12/13/18 00:55 Acetaminophen (Tylenol) 650 mg Q4H PRN RECTAL Mild Pain/Temp > 100.5 12/11/18 17:15 01/08/19 01:14 Ceftriaxone Sodium 1 gm/ Dextrose 55 ml @ 110 mls/hr Q24H IVPB 12/11/18 14:00 12/18/18 13:59 12/12/18 13:13 Docusate Sodium (Colace) 100 mg THREE TIMES A DAY ORAL 12/11/18 18:00 01/09/19 17:59 Furosemide (Lasix) 20 mg ONCE IV 12/13/18 13:15 12/13/18 14:15 Heparin Sodium (Porcine) (Heparin 5000 units/ml) 5,000 units EVERY 12 HOURS SUBQ 12/11/18 21:00 01/10/19 12:44 12/12/18 20:44 Pantoprazole (Protonix) 40 mg EVERY 12 HOURS ORAL 12/11/18 21:00 01/09/19 20:59 12/12/18 20:42 Spironolactone (Aldactone) 50 mg DAILY ORAL 12/12/18 09:00 01/08/19 08:59 12/12/18 08:03 Tamsulosin HCl (Flomax) 0.4 mg BID ORAL 12/11/18 18:00 01/09/19 17:59 12/12/18 08:03 Vancomycin HCl (Vanco rx to dose) 1 ea DAILY PRN MISC Per rx protocol 12/11/18 14:30 01/10/19 14:29 Vancomycin HCl 1 gm/Dextrose 275 ml @ 183.708 mls/hr Q24H IVPB 12/12/18 15:00 12/17/18 14:59 12/12/18 14:30 Musa Gordillo MD Dec 13, 2018 13:33
[2018-12-13] MEDS: cefTRIAXone 1 GM in D5W 55 ML IVPB SCH (13:53)
--- NOTE | 2018-12-13 14:59 | Cardiac Electrophysiology PN ---
Assessment/Plan Assessment/Plan 1. Frequent PVCs. Echocardiogram showed ejection fraction of 60%. He already ruled out for myocardial infarction. Keep the magnesium more than 2 and potassium more than 4. 2. Hypertension on Aldactone 50 mg daily 3. Bilateral lower extremity cellulitis and sepsis, on vancomycin per ID. 4. Altered mental status. 5. 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 OANH RN Subjective Subjective Confused in restraints.No CP or SOB Objective Last 24 Hour Vital Signs Date Time Temp Pulse Resp B/P (MAP) Pulse Ox O2 Delivery O2 Flow Rate FiO2 12/13/18 11:16 Nasal Cannula 2.0 12/13/18 08:00 68 15 144/65 (91) 98 12/13/18 08:00 69 12/13/18 08:00 Nasal Cannula 2.0 12/13/18 07:59 97 Nasal Cannula 2.0 28 12/13/18 04:00 97.8 68 20 136/70 (92) 98 12/13/18 04:00 61 12/13/18 04:00 Nasal Cannula 2.0 12/13/18 00:00 98.1 64 18 147/69 (95) 98 12/13/18 00:00 Nasal Cannula 2.0 12/13/18 00:00 64 12/12/18 20:00 60 12/12/18 20:00 Nasal Cannula 2.0 12/12/18 20:00 98.1 64 20 130/64 (86) 96 12/12/18 19:50 98 Nasal Cannula 2.0 28 12/12/18 16:00 61 12/12/18 16:00 Bi-pap 12/12/18 16:00 97.9 67 22 115/65 (82) 98 Intake and Output 12/12/18 12/13/18 19:00 07:00 Intake Total 240 ml Output Total 400 ml 550 ml Balance -400 ml -310 ml Intake Oral 240 ml Output Urine Total 400 ml 550 ml # Voids 1 # Bowel Movements 1 Laboratory Tests Test 12/13/18 08:40 White Blood Count 10.8 K/UL (4.8-10.8) Red Blood Count 3.94 M/UL (4.70-6.10) L Hemoglobin 12.2 G/DL (14.2-18.0) L Hematocrit 37.5 % (42.0-52.0) L Mean Corpuscular Volume 95 FL (80-99) Mean Corpuscular Hemoglobin 31.0 PG (27.0-31.0) Mean Corpuscular Hemoglobin Concent 32.5 G/DL (32.0-36.0) Red Cell Distribution Width 12.0 % (11.6-14.8) Platelet Count 239 K/UL (150-450) Mean Platelet Volume 6.3 FL (6.5-10.1) L Neutrophils (%) (Auto) 61.2 % (45.0-75.0) Lymphocytes (%) (Auto) 16.2 % (20.0-45.0) L Monocytes (%) (Auto) 11.4 % (1.0-10.0) H Eosinophils (%) (Auto) 8.9 % (0.0-3.0) H Basophils (%) (Auto) 2.3 % (0.0-2.0) H Sodium Level 140 MMOL/L (136-145) Potassium Level 3.8 MMOL/L (3.5-5.1) Chloride Level 104 MMOL/L (98-107) Carbon Dioxide Level 33 MMOL/L (21-32) H Blood Urea Nitrogen 27 mg/dL (7-18) H Creatinine 1.1 MG/DL (0.55-1.30) Estimat Glomerular Filtration Rate mL/min (>60) Glucose Level 107 MG/DL (74-106) H Uric Acid 5.6 MG/DL (2.6-7.2) Calcium Level 8.7 MG/DL (8.5-10.1) Phosphorus Level 2.6 MG/DL (2.5-4.9) Magnesium Level 2.1 MG/DL (1.8-2.4) Total Bilirubin 0.5 MG/DL (0.2-1.0) Aspartate Amino Transf (AST/SGOT) 16 U/L (15-37) Alanine Aminotransferase (ALT/SGPT) 23 U/L (12-78) Alkaline Phosphatase 48 U/L (46-116) Ammonia 31 umol/L (11-32) C-Reactive Protein, Quantitative 16.0 mg/dL (0.00-0.90) H Pro-B-Type Natriuretic Peptide 580 pg/mL (0-125) H Total Protein 6.8 G/DL (6.4-8.2) Albumin 2.2 G/DL (3.4-5.0) L Globulin 4.6 g/dL Albumin/Globulin Ratio 0.5 (1.0-2.7) L Microbiology Date/Time Source Procedure Growth Status 12/11/18 13:29 Urine,Clean Catch Urine Culture - Preliminary Gram Negative Demond Resulted Objective HEAD AND NECK: No JVD. LUNGS: Decreased breath sounds. CARDIOVASCULAR: Regular S1 and S2 with no gallop. ABDOMEN: Soft. EXTREMITIES: Bilateral 2+ pitting edema and cellulitis. Mikey Snyder MD Dec 13, 2018 14:59
[2018-12-13] MEDS: Vancomycin 1 GM in D5W 275 ML IVPB SCH (15:08)
--- NOTE | 2018-12-13 15:59 | Surgery Progress Note ---
Surgery Progress Note Subjective Additional Comments No acute events Leukocytosis improved Patient alert and very talkative. Labs noted Overall improving Objective Last 24 Hour Vital Signs Date Time Temp Pulse Resp B/P (MAP) Pulse Ox O2 Delivery O2 Flow Rate FiO2 12/13/18 12:00 62 12/13/18 11:16 Nasal Cannula 2.0 12/13/18 08:00 68 15 144/65 (91) 98 12/13/18 08:00 69 12/13/18 08:00 Nasal Cannula 2.0 12/13/18 07:59 97 Nasal Cannula 2.0 28 12/13/18 04:00 97.8 68 20 136/70 (92) 98 12/13/18 04:00 61 12/13/18 04:00 Nasal Cannula 2.0 12/13/18 00:00 98.1 64 18 147/69 (95) 98 12/13/18 00:00 Nasal Cannula 2.0 12/13/18 00:00 64 12/12/18 20:00 60 12/12/18 20:00 Nasal Cannula 2.0 12/12/18 20:00 98.1 64 20 130/64 (86) 96 12/12/18 19:50 98 Nasal Cannula 2.0 28 12/12/18 16:00 61 12/12/18 16:00 Bi-pap 12/12/18 16:00 97.9 67 22 115/65 (82) 98 I&O Intake and Output 12/12/18 12/13/18 19:00 07:00 Intake Total 240 ml Output Total 400 ml 550 ml Balance -400 ml -310 ml Intake Oral 240 ml Output Urine Total 400 ml 550 ml # Voids 1 # Bowel Movements 1 Dressing: other Wound: other Drains: other Cardiovascular: RSR Respiratory: clear Abdomen: soft, non-tender, present bowel sounds, non-distended Extremities: edema, no tenderness, no cyanosis Laboratory Tests Test 12/13/18 08:40 12/13/18 14:40 White Blood Count 10.8 K/UL (4.8-10.8) Red Blood Count 3.94 M/UL (4.70-6.10) L Hemoglobin 12.2 G/DL (14.2-18.0) L Hematocrit 37.5 % (42.0-52.0) L Mean Corpuscular Volume 95 FL (80-99) Mean Corpuscular Hemoglobin 31.0 PG (27.0-31.0) Mean Corpuscular Hemoglobin Concent 32.5 G/DL (32.0-36.0) Red Cell Distribution Width 12.0 % (11.6-14.8) Platelet Count 239 K/UL (150-450) Mean Platelet Volume 6.3 FL (6.5-10.1) L Neutrophils (%) (Auto) 61.2 % (45.0-75.0) Lymphocytes (%) (Auto) 16.2 % (20.0-45.0) L Monocytes (%) (Auto) 11.4 % (1.0-10.0) H Eosinophils (%) (Auto) 8.9 % (0.0-3.0) H Basophils (%) (Auto) 2.3 % (0.0-2.0) H Sodium Level 140 MMOL/L (136-145) Potassium Level 3.8 MMOL/L (3.5-5.1) Chloride Level 104 MMOL/L (98-107) Carbon Dioxide Level 33 MMOL/L (21-32) H Blood Urea Nitrogen 27 mg/dL (7-18) H Creatinine 1.1 MG/DL (0.55-1.30) Estimat Glomerular Filtration Rate mL/min (>60) Glucose Level 107 MG/DL (74-106) H Uric Acid 5.6 MG/DL (2.6-7.2) Calcium Level 8.7 MG/DL (8.5-10.1) Phosphorus Level 2.6 MG/DL (2.5-4.9) Magnesium Level 2.1 MG/DL (1.8-2.4) Total Bilirubin 0.5 MG/DL (0.2-1.0) Aspartate Amino Transf (AST/SGOT) 16 U/L (15-37) Alanine Aminotransferase (ALT/SGPT) 23 U/L (12-78) Alkaline Phosphatase 48 U/L (46-116) Ammonia 31 umol/L (11-32) C-Reactive Protein, Quantitative 16.0 mg/dL (0.00-0.90) H Pro-B-Type Natriuretic Peptide 580 pg/mL (0-125) H Total Protein 6.8 G/DL (6.4-8.2) Albumin 2.2 G/DL (3.4-5.0) L Globulin 4.6 g/dL Albumin/Globulin Ratio 0.5 (1.0-2.7) L Vancomycin Level Trough 5.9 ug/mL (5.0-12.0) Plan Problems: (1) Cellulitis Assessment & Plan: Right Tib fib xrays nml Left Tib fix xrays w/ There is subcutaneous edema involving the left leg. There is no fracture. The bones are osteopenic. exam with cellulitis. no abscess palpable on left right with small healing scab posterior cont IV Abx will follow clinically (2) Elevated WBCs (3) Sepsis Assessment & Plan: possible etiology lower extremity cellulitis cont abx no abscess to drain currently. mainly phlegmona cultures noted labs improving exam improving AM labs cont abx as per ID thank you (4) Fever UbaldoYayo lara Dec 13, 2018 15:59
[2018-12-13 16:00] VITALS: BP 157/88
[2018-12-13] MEDS ORDERED: Haloperidol 5mg/ml Inj IM PRN (16:00)
[2018-12-13] MEDS ORDERED: Vancomycin 500mg/D5W 110ml IVPB SCH ×2 (17:30)
--- NOTE | 2018-12-13 17:34 | NUR ---
NURSE NOTES: Pt IV access right wrist, underneath restraint, infiltrated from pt pulling at restraint. Roght hand slightly swollen, IV access removed. Pt is refusing to allow new access to be established.
--- NOTE | 2018-12-13 19:10 | NUR ---
NURSE NOTES: Pt report received from [facility]. pt remains stable. pt vital signs stable. pt is alert and oriented times 1. pt is on 2 L NC and able to sat to 100% no distress noted. 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 will continue plan of care.
[2018-12-13 20:00] VITALS: BP 158/82
--- NOTE | 2018-12-13 20:53 | NUR ---
HAND-OFF: Report given to Jeannette CONTRERAS Med Surg. pt remains stable.
[2018-12-13] MEDS ORDERED: Acetaminophen 650 MG SUPP RECTAL PRN (21:15)
--- NOTE | 2018-12-13 21:15 | General Progress Note ---
Assessment/Plan Problem List: (1) Cellulitis ICD Codes: L03.90 - Cellulitis, unspecified SNOMED: 496659994 (2) Fever ICD Codes: R50.9 - Fever, unspecified SNOMED: 558354814 (3) Elevated WBCs ICD Codes: D72.829 - Elevated white blood cell count, unspecified SNOMED: 967238040, 044983766 (4) Hypoalbuminemia ICD Codes: E88.09 - Other disorders of plasma-protein metabolism, not elsewhere classified SNOMED: 090183761 (5) Sepsis ICD Codes: A41.9 - Sepsis, unspecified organism SNOMED: 03012392 Status: progressing, deteriorating Assessment/Plan: leukocytosis ams 'psychosis sepsis afebrile reviewed chart and labs and meds Subjective ROS Limited/Unobtainable: Yes Allergies: Coded Allergies: No Known Allergies (Unverified , 12/06/17) Objective Last 24 Hour Vital Signs Date Time Temp Pulse Resp B/P (MAP) Pulse Ox O2 Delivery O2 Flow Rate FiO2 12/13/18 19:48 98 Nasal Cannula 2.0 28 12/13/18 16:00 69 12/13/18 16:00 Nasal Cannula 2.0 12/13/18 16:00 97.5 67 20 157/88 (111) 98 12/13/18 12:00 62 12/13/18 12:00 96.8 62 16 144/79 (100) 100 12/13/18 11:16 Nasal Cannula 2.0 12/13/18 08:00 68 15 144/65 (91) 98 12/13/18 08:00 69 12/13/18 08:00 Nasal Cannula 2.0 12/13/18 07:59 97 Nasal Cannula 2.0 28 12/13/18 04:00 97.8 68 20 136/70 (92) 98 12/13/18 04:00 61 12/13/18 04:00 Nasal Cannula 2.0 12/13/18 00:00 98.1 64 18 147/69 (95) 98 12/13/18 00:00 Nasal Cannula 2.0 12/13/18 00:00 64 Intake and Output 12/12/18 12/13/18 19:00 07:00 Intake Total 240 ml Output Total 400 ml 550 ml Balance -400 ml -310 ml Intake Oral 240 ml Output Urine Total 400 ml 550 ml # Voids 1 # Bowel Movements 1 Laboratory Tests 12/13/18 08:40: White Blood Count 10.8, Red Blood Count 3.94L, Hemoglobin 12.2L, Hematocrit 37.5L, Mean Corpuscular Volume 95, Mean Corpuscular Hemoglobin 31.0, Mean Corpuscular Hemoglobin Concent 32.5, Red Cell Distribution Width 12.0, Platelet Count 239, Mean Platelet Volume 6.3L, Neutrophils (%) (Auto) 61.2, Lymphocytes ( %) (Auto) 16.2L, Monocytes (%) (Auto) 11.4H, Eosinophils (%) (Auto) 8.9H, Basophils (%) (Auto) 2.3H, Sodium Level 140, Potassium Level 3.8, Chloride Level 104, Carbon Dioxide Level 33H, Blood Urea Nitrogen 27H, Creatinine 1.1, Estimat Glomerular Filtration Rate , Glucose Level 107H, Uric Acid 5.6, Calcium Level 8.7, Phosphorus Level 2.6, Magnesium Level 2.1, Total Bilirubin 0.5, Aspartate Amino Transf (AST/SGOT) 16, Alanine Aminotransferase (ALT/SGPT) 23, Alkaline Phosphatase 48, Ammonia 31, C-Reactive Protein, Quantitative 16.0H, Pro -B-Type Natriuretic Peptide 580H, Total Protein 6.8, Albumin 2.2L, Globulin 4.6 , Albumin/Globulin Ratio 0.5L 12/13/18 14:40: Vancomycin Level Trough 5.9 Height (Feet): 6 Height (Inches): 0.00 Weight (Pounds): 297 General Appearance: confused Cardiovascular: normal rate Respiratory/Chest: lungs clear Abdomen: soft Patric Alonso MD Dec 13, 2018 21:15
--- NOTE | 2018-12-13 22:00 | NUR ---
NURSE NOTES: Received patient from [facility] from [facility]. VSS. LLE bright red due to cellulitis. Skin intact. History of scabies noted. No IV access, MD aware. Bilateral soft wrist restraints noted, skin underneath intact and asymptomatic, pulses present. Patient mildly agitated. Yellow socks and gown on.
[2018-12-14] VITALS: BP 139/69
[2018-12-14] MEDS: Haloperidol 5mg/ml Inj IM PRN ×2 (02:27→18:32)
--- NOTE | 2018-12-14 02:36 | NUR ---
NURSE NOTES: Patient managed to remove restraints and pull IV off. New IV inserted on left hand 22 gauge. ANODE REBUILDER reminded not to take restraints off and ask for help when cleaning patient.
[2018-12-14 04:00] VITALS: BP 154/65
--- NOTE | 2018-12-14 06:45 | Progress Note ---
DATE: 12/13/2018 SUBJECTIVE: The patient was seen in [facility]. He was very agitated, in bilateral restraints. He was during the evaluation. According to nurse, the patient has been unmanageable. He was admitted to [facility] without any psychotropic medications. The patient has been noncompliant, refusing all the medications and care including vitals. The patient is uncontrolled and is not able to participate and answer the questions. MENTAL STATUS EXAMINATION: The patient is disoriented. Mood is agitated. Affect is flat. Thought process is disorganized. Thought content, no suicidal or homicidal ideation. The patient is delusional. Insight and judgment is impaired. Cognition is impaired. ASSESSMENT: Dementia with behavioral disturbance and encephalopathy. PLAN: The patient will be placed on Haldol IM p.r.n. Continue to follow. The patient will be downgraded Andrzej Fischer M.D. DR: ELIZABETH JOB#: [id number] CC: MADDY
--- NOTE | 2018-12-14 06:57 | NUR ---
HAND-OFF: Report given to [facility] Ibarra.
--- NOTE | 2018-12-14 07:54 | NUR ---
NURSE NOTES: received report from Dacia. patient in bed sleeping. no respiratory distress noted. no facial grimacing noted. soft restraint for prevention pulling out devices. IV on RFA 24 intact. contact isolation .PPE at all times. bed in the lowest position. call light within reach. will continue to provide plan of care.
[2018-12-14 08:00] VITALS: BP 133/63
--- NOTE | 2018-12-14 08:56 | Hematology/Onc Progress Note ---
Assessment/Plan Assessment/Plan ASSESSMENT AND RECOMMENDATIONS: # Leukocytosis with a wbc of 30k likely due to infection/cellulitis --> given cefepime and vanc in er --> currently on ceph/doxy --> ceftriaxone/vanc --> monitor for improvement 30k-->25->15k --> per id care # Right greater that left swelling concerning for dvt due to wounds, cellulitis --> Begin short-acting ppx blood thinner heparin 5k sq tid ===> duplex of the lower ext ordered and neg for dvt # Anemia, mild. No w/u required at this time. --> Current Hgb >12 --> anemia panel on prn basis --> no evidence of hemolysis is noted # Tinea pedis in right foot. --> Cont topical clotrimazole on right foot especially between the toes prn # Acute renal failure, improving. # Morbid obesity. # History of dementia. # History of hypertension. # CHF cards eval prn # Agitation as per psych, currently on ativan prn # Dvt ppx wth heparin sq Appreciate consultation greatly. Subjective Allergies: Coded Allergies: No Known Allergies (Unverified , 12/06/17) Subjective 12/10: on restraints, no acute events, duplex results pending 12/11: on abx, rocephin/vanc, cellulitis better, not hungry 12/13: remains on abx, confused, on restraints, agitated 12/14: contact isolation, awake and agitated, urine cx positive, on vanco/ ceftriaxone Objective Objective Current Medications Medications (Trade) Dose Ordered Sig/Arina Route PRN Reason Start Time Stop Time Status Last Admin Dose Admin Acetaminophen (Tylenol) 650 mg Q4H PRN ORAL Mild Pain/Temp > 100.5 12/13/18 23:15 01/07/19 23:14 Acetaminophen (Tylenol) 650 mg Q4H PRN RECTAL Mild Pain/Temp > 100.5 12/13/18 21:15 01/08/19 01:14 Ceftriaxone Sodium 1 gm/ Dextrose 55 ml @ 110 mls/hr Q24H IVPB 12/14/18 14:00 12/18/18 13:59 Docusate Sodium (Colace) 100 mg THREE TIMES A DAY ORAL 12/14/18 09:00 01/09/19 17:59 Haloperidol Lactate (Haldol) 5 mg Q6H PRN IM Agitation 12/13/18 22:00 01/12/19 15:59 12/14/18 02:27 Heparin Sodium (Porcine) (Heparin 5000 units/ml) 5,000 units EVERY 12 HOURS SUBQ 12/13/18 21:00 01/10/19 12:44 Pantoprazole (Protonix) 40 mg EVERY 12 HOURS ORAL 12/13/18 21:00 01/09/19 20:59 Spironolactone (Aldactone) 50 mg DAILY ORAL 12/14/18 09:00 01/08/19 08:59 Tamsulosin HCl (Flomax) 0.4 mg Q12HR ORAL 12/14/18 09:00 01/13/19 08:59 Vancomycin HCl (Vanco rx to dose) 1 ea DAILY PRN MISC Per rx protocol 12/13/18 21:30 01/12/19 21:29 Vancomycin/Sodium Chloride 275 ml @ 137.5 mls/ hr Q24H IVPB 12/14/18 18:00 12/19/18 17:59 Last 24 Hour Vital Signs Date Time Temp Pulse Resp B/P (MAP) Pulse Ox O2 Delivery O2 Flow Rate FiO2 12/14/18 08:00 97.3 62 18 133/63 (86) 96 12/14/18 04:00 97.6 74 18 154/65 (94) 96 12/14/18 00:00 98.7 72 20 139/69 (92) 96 12/13/18 20:00 99.0 72 20 158/82 (107) 96 12/13/18 20:00 Nasal Cannula 2.0 12/13/18 19:48 98 Nasal Cannula 2.0 28 12/13/18 16:00 69 12/13/18 16:00 Nasal Cannula 2.0 12/13/18 16:00 97.5 67 20 157/88 (111) 98 12/13/18 12:00 62 12/13/18 12:00 96.8 62 16 144/79 (100) 100 12/13/18 11:16 Nasal Cannula 2.0 12/13/18 08:00 68 15 144/65 (91) 98 12/13/18 08:00 69 12/13/18 08:00 Nasal Cannula 2.0 12/13/18 07:59 97 Nasal Cannula 2.0 28 12/13/18 04:00 97.8 68 20 136/70 (92) 98 12/13/18 04:00 61 12/13/18 04:00 Nasal Cannula 2.0 12/13/18 00:00 98.1 64 18 147/69 (95) 98 12/13/18 00:00 Nasal Cannula 2.0 12/13/18 00:00 64 12/12/18 20:00 60 12/12/18 20:00 Nasal Cannula 2.0 12/12/18 20:00 98.1 64 20 130/64 (86) 96 12/12/18 19:50 98 Nasal Cannula 2.0 28 12/12/18 16:00 61 12/12/18 16:00 Bi-pap 12/12/18 16:00 97.9 67 22 115/65 (82) 98 12/12/18 12:00 Bi-pap 12/12/18 12:00 98.1 67 22 139/66 (90) 97 12/12/18 12:00 63 Intake and Output 12/13/18 12/14/18 19:00 07:00 Intake Total 240 ml 150 ml Output Total 1250 ml Balance -1010 ml 150 ml Intake Oral 240 ml 150 ml Output Urine Total 1250 ml # Voids 1 2 # Bowel Movements 3 Labs Test 12/11/18 12:33 12/11/18 13:29 12/11/18 16:10 12/12/18 04:37 Arterial Blood pH 7.338 (7.350-7.450) 7.365 (7.350-7.450) Arterial Blood Partial Pressure CO2 54.0 mmHg (35.0-45.0) 55.6 mmHg (35.0-45.0) Arterial Blood Partial Pressure O2 88.1 mmHg (75.0-100.0) 86.2 mmHg (75.0-100.0) Arterial Blood HCO3 28.3 mmol/L (22.0-26.0) 31.1 mmol/L (22.0-26.0) Arterial Blood Oxygen Saturation 96.5 % (95-100) 96.5 % (95-100) Arterial Blood Base Excess 1.5 (-2-2) 4.3 (-2-2) [place] Test Positive Positive Urine Color Pale yellow Urine Appearance Clear Urine pH 5 (4.5-8.0) Urine Specific [place] 1.020 (1.005-1.035) Urine Protein 2+ (NEGATIVE) Urine Glucose (UA) Negative (NEGATIVE) Urine Ketones Negative (NEGATIVE) Urine Blood 2+ (NEGATIVE) Urine Nitrite Negative (NEGATIVE) Urine Bilirubin Negative (NEGATIVE) Urine Urobilinogen Normal MG/DL (0.0-1.0) Urine Leukocyte Esterase Negative (NEGATIVE) Urine RBC 2-4 /HPF (0 - 0) Urine WBC 2-4 /HPF (0 - 0) Urine Squamous Epithelial Cells Occasional /LPF Urine Amorphous Sediment Few /LPF (NONE) Urine Bacteria Occasional /HPF (NONE) Urine Fine Granular Casts 0-2 /LPF (NONE) Troponin I 0.013 ng/mL (0.000-0.056) Triglycerides Level 122 MG/DL (30-150) Cholesterol Level 143 MG/DL (< 200) LDL Cholesterol 87 mg/dL (<100) HDL Cholesterol 18 MG/DL (40-60) Cholesterol/HDL Ratio 7.9 (3.3-4.4) Thyroid Stimulating Hormone (TSH) 1.495 uiU/mL (0.358-3.740) Free Thyroxine 0.87 NG/DL (0.76-1.46) Test 12/13/18 08:40 12/13/18 14:40 White Blood Count 10.8 K/UL (4.8-10.8) Red Blood Count 3.94 M/UL (4.70-6.10) Hemoglobin 12.2 G/DL (14.2-18.0) Hematocrit 37.5 % (42.0-52.0) Mean Corpuscular Volume 95 FL (80-99) Mean Corpuscular Hemoglobin 31.0 PG (27.0-31.0) Mean Corpuscular Hemoglobin Concent 32.5 G/DL (32.0-36.0) Red Cell Distribution Width 12.0 % (11.6-14.8) Platelet Count 239 K/UL (150-450) Mean Platelet Volume 6.3 FL (6.5-10.1) Neutrophils (%) (Auto) 61.2 % (45.0-75.0) Lymphocytes (%) (Auto) 16.2 % (20.0-45.0) Monocytes (%) (Auto) 11.4 % (1.0-10.0) Eosinophils (%) (Auto) 8.9 % (0.0-3.0) Basophils (%) (Auto) 2.3 % (0.0-2.0) Sodium Level 140 MMOL/L (136-145) Potassium Level 3.8 MMOL/L (3.5-5.1) Chloride Level 104 MMOL/L (98-107) Carbon Dioxide Level 33 MMOL/L (21-32) Blood Urea Nitrogen 27 mg/dL (7-18) Creatinine 1.1 MG/DL (0.55-1.30) Estimat Glomerular Filtration Rate mL/min (>60) Glucose Level 107 MG/DL (74-106) Uric Acid 5.6 MG/DL (2.6-7.2) Calcium Level 8.7 MG/DL (8.5-10.1) Phosphorus Level 2.6 MG/DL (2.5-4.9) Magnesium Level 2.1 MG/DL (1.8-2.4) Total Bilirubin 0.5 MG/DL (0.2-1.0) Aspartate Amino Transf (AST/SGOT) 16 U/L (15-37) Alanine Aminotransferase (ALT/SGPT) 23 U/L (12-78) Alkaline Phosphatase 48 U/L (46-116) Ammonia 31 umol/L (11-32) C-Reactive Protein, Quantitative 16.0 mg/dL (0.00-0.90) Pro-B-Type Natriuretic Peptide 580 pg/mL (0-125) Total Protein 6.8 G/DL (6.4-8.2) Albumin 2.2 G/DL (3.4-5.0) Globulin 4.6 g/dL Albumin/Globulin Ratio 0.5 (1.0-2.7) Vancomycin Level Trough 5.9 ug/mL (5.0-12.0) Height (Feet): 6 Height (Inches): 0.00 Weight (Pounds): 297 Objective PHYSICAL EXAMINATION: VITAL SIGNS: reviewed GEN: No acute distress. Seems obese. Restraints++ HEART: Regular. LUNGS: Clear tab ABDOMEN: Obese, soft, and nontender. EXTREMITIES: Have erythema, warmness, b/l and multiple wounds noted SKIN: Have skin cracks between the right foot toes. Shawn Lopez MD Dec 14, 2018 08:56
[2018-12-14] MEDS: Heparin 5000 units/ml inj SUBQ SCH ×2 (09:00→20:11)
[2018-12-14] MEDS: Docusate 100mg cap ORAL SCH ×3 (09:00→17:18)
[2018-12-14] MEDS: Spironolactone 50mg tab ORAL SCH (09:00)
[2018-12-14] MEDS: Tamsulosin 0.4mg cap ORAL SCH ×2 (09:00→20:09)
--- NOTE | 2018-12-14 10:00 | NUR ---
NURSE NOTES: patient refused to take morning medications. RN explained risks and benefits. alert. forgetful and confused at this time. verbally responsive. very sleepy.
--- NOTE | 2018-12-14 10:34 | Infectious Diseases Prog Note ---
Assessment/Plan Assessment/Plan IMPRESSION: Sepsis, resolving Cellulitis of left lower extremity. E. coli [facility] Dementia, morbid obesity, hypertension, lactic acidosis, chronic kidney disease. Altered mental status RECOMMENDATION: Discontinue Rocephin & Vancomycin Start on Bactrim & Keflex Subjective ROS Limited/Unobtainable: Yes Genitourinary: Reports: other - incontinent Neurologic: Reports: confusion, other - on restraint Allergies: Coded Allergies: No Known Allergies (Unverified , 12/06/17) Objective Vital Signs Last 24 Hour Vital Signs Date Time Temp Pulse Resp B/P (MAP) Pulse Ox O2 Delivery O2 Flow Rate FiO2 12/14/18 09:00 Nasal Cannula 2.0 12/14/18 08:00 97.3 62 18 133/63 (86) 96 12/14/18 04:00 97.6 74 18 154/65 (94) 96 12/14/18 00:00 98.7 72 20 139/69 (92) 96 12/13/18 20:00 99.0 72 20 158/82 (107) 96 12/13/18 20:00 Nasal Cannula 2.0 12/13/18 19:48 98 Nasal Cannula 2.0 28 12/13/18 16:00 69 12/13/18 16:00 Nasal Cannula 2.0 12/13/18 16:00 97.5 67 20 157/88 (111) 98 12/13/18 12:00 62 12/13/18 12:00 96.8 62 16 144/79 (100) 100 12/13/18 11:16 Nasal Cannula 2.0 Height (Feet): 6 Height (Inches): 0.00 Weight (Pounds): 297 General Appearance: no acute distress HEENT: mucous membranes moist Respiratory/Chest: lungs clear Cardiovascular: normal rate Abdomen: soft, non tender Extremities: other - mild edema Skin: other - erythema & tenderness on right barrios Neurologic/Psychiatric: responsive, disoriented Microbiology Date/Time Source Procedure Growth Status 12/11/18 13:29 Urine,Clean Catch Urine Culture - Final Escherichia Coli Complete Laboratory Tests Test 12/13/18 14:40 Vancomycin Level Trough 5.9 ug/mL (5.0-12.0) Current Medications Medications (Trade) Dose Ordered Sig/Arina Route PRN Reason Start Time Stop Time Status Last Admin Dose Admin Acetaminophen (Tylenol) 650 mg Q4H PRN ORAL Mild Pain/Temp > 100.5 12/13/18 23:15 01/07/19 23:14 Acetaminophen (Tylenol) 650 mg Q4H PRN RECTAL Mild Pain/Temp > 100.5 12/13/18 21:15 01/08/19 01:14 Docusate Sodium (Colace) 100 mg THREE TIMES A DAY ORAL 12/14/18 09:00 01/09/19 17:59 Haloperidol Lactate (Haldol) 5 mg Q6H PRN IM Agitation 12/13/18 22:00 01/12/19 15:59 12/14/18 02:27 Heparin Sodium (Porcine) (Heparin 5000 units/ml) 5,000 units EVERY 12 HOURS SUBQ 12/13/18 21:00 01/10/19 12:44 Pantoprazole (Protonix) 40 mg EVERY 12 HOURS ORAL 12/13/18 21:00 01/09/19 20:59 Piperacillin Sod/ Tazobactam Sod 3.375 gm/Sodium Chloride 110 ml @ 27.5 mls/hr Q8H IVPB 12/14/18 12:00 12/21/18 11:59 Spironolactone (Aldactone) 50 mg DAILY ORAL 12/14/18 09:00 01/08/19 08:59 Tamsulosin HCl (Flomax) 0.4 mg Q12HR ORAL 12/14/18 09:00 01/13/19 08:59 Vancomycin HCl (Vanco rx to dose) 1 ea DAILY PRN MISC Per rx protocol 12/13/18 21:30 01/12/19 21:29 Vancomycin/Sodium Chloride 275 ml @ 137.5 mls/ hr Q24H IVPB 12/14/18 18:00 12/19/18 17:59 Robert Lovelace MD Dec 14, 2018 10:34
--- NOTE | 2018-12-14 11:02 | Surgery Progress Note ---
Surgery Progress Note Subjective Additional Comments agitated in restraints micro noted exam improving Objective Last 24 Hour Vital Signs Date Time Temp Pulse Resp B/P (MAP) Pulse Ox O2 Delivery O2 Flow Rate FiO2 12/14/18 09:00 Nasal Cannula 2.0 12/14/18 08:00 97.3 62 18 133/63 (86) 96 12/14/18 04:00 97.6 74 18 154/65 (94) 96 12/14/18 00:00 98.7 72 20 139/69 (92) 96 12/13/18 20:00 99.0 72 20 158/82 (107) 96 12/13/18 20:00 Nasal Cannula 2.0 12/13/18 19:48 98 Nasal Cannula 2.0 28 12/13/18 16:00 69 12/13/18 16:00 Nasal Cannula 2.0 12/13/18 16:00 97.5 67 20 157/88 (111) 98 12/13/18 12:00 62 12/13/18 12:00 96.8 62 16 144/79 (100) 100 12/13/18 11:16 Nasal Cannula 2.0 I&O Intake and Output 12/13/18 12/14/18 19:00 07:00 Intake Total 240 ml 150 ml Output Total 1250 ml Balance -1010 ml 150 ml Intake Oral 240 ml 150 ml Output Urine Total 1250 ml # Voids 1 2 # Bowel Movements 3 Dressing: saturated Wound: clean Cardiovascular: RSR Respiratory: clear Abdomen: soft, flat, non-tender, present bowel sounds Extremities: edema, no tenderness, no cyanosis Laboratory Tests Test 12/13/18 14:40 Vancomycin Level Trough 5.9 ug/mL (5.0-12.0) Plan Problems: (1) Cellulitis Assessment & Plan: Right Tib fib xrays nml Left Tib fix xrays w/ There is subcutaneous edema involving the left leg. There is no fracture. The bones are osteopenic. exam with cellulitis. no abscess palpable on left right with small healing scab posterior cont IV Abx will follow clinically (2) Elevated WBCs (3) Sepsis Assessment & Plan: possible etiology lower extremity cellulitis cont abx no abscess to drain currently. mainly phlegmona cultures noted labs improving exam improving AM labs cont abx as per ID thank you (4) Fever Yayo Callaway Dec 14, 2018 11:02
--- NOTE | 2018-12-14 11:40 | Nephrology Progress Note ---
Assessment/Plan Problem List: (1) Renal failure (ARF), acute on chronic (2) Cellulitis (3) Elevated WBCs (4) Sepsis (5) UTI (urinary tract infection) Assessment presents with Fever and high WBCs and LE cellulitis CRP lowering Cr 1.5: h/o CKD Dementia HTN Obesity Lactic acidosis Plan Antibiotics slow diurese avoid nephrotoxics 2D echo Left ventricular ejection fraction estimated to be 50%. monitor renal parameters UA noted one dose Lasix IV Subjective ROS Limited/Unobtainable: No Constitutional: Reports: malaise Objective Objective Last 24 Hour Vital Signs Date Time Temp Pulse Resp B/P (MAP) Pulse Ox O2 Delivery O2 Flow Rate FiO2 12/14/18 11:32 97 Nasal Cannula 2.0 28 12/14/18 09:00 Nasal Cannula 2.0 12/14/18 08:00 97.3 62 18 133/63 (86) 96 12/14/18 04:00 97.6 74 18 154/65 (94) 96 12/14/18 00:00 98.7 72 20 139/69 (92) 96 12/13/18 20:00 99.0 72 20 158/82 (107) 96 12/13/18 20:00 Nasal Cannula 2.0 12/13/18 19:48 98 Nasal Cannula 2.0 28 12/13/18 16:00 69 12/13/18 16:00 Nasal Cannula 2.0 12/13/18 16:00 97.5 67 20 157/88 (111) 98 12/13/18 12:00 62 12/13/18 12:00 96.8 62 16 144/79 (100) 100 Intake and Output 12/13/18 12/14/18 19:00 07:00 Intake Total 240 ml 150 ml Output Total 1250 ml Balance -1010 ml 150 ml Intake Oral 240 ml 150 ml Output Urine Total 1250 ml # Voids 1 2 # Bowel Movements 3 Laboratory Tests 12/13/18 14:40: Vancomycin Level Trough 5.9 Height (Feet): 6 Height (Inches): 0.00 Weight (Pounds): 297 General Appearance: no apparent distress, lethargic Cardiovascular: normal rate Respiratory/Chest: decreased breath sounds Abdomen: distended Jay Rashid MD Dec 14, 2018 11:40
--- NOTE | 2018-12-14 11:41 | Cardiac Electrophysiology PN ---
Assessment/Plan Assessment/Plan 1. Frequent PVCs. Echocardiogram showed ejection fraction of 60%. Ruled out for myocardial infarction. Keep the magnesium more than 2 and potassium more than 4. 2. Hypertension on Aldactone 50 mg daily 3. Bilateral lower extremity cellulitis and sepsis, on vancomycin per ID. 4. Altered mental status. 5. 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 DW RN Subjective Subjective Confused in restraints.No CP or SOB getting iv Abx. RN at bedside Objective Last 24 Hour Vital Signs Date Time Temp Pulse Resp B/P (MAP) Pulse Ox O2 Delivery O2 Flow Rate FiO2 12/14/18 11:32 97 Nasal Cannula 2.0 28 12/14/18 09:00 Nasal Cannula 2.0 12/14/18 08:00 97.3 62 18 133/63 (86) 96 12/14/18 04:00 97.6 74 18 154/65 (94) 96 12/14/18 00:00 98.7 72 20 139/69 (92) 96 12/13/18 20:00 99.0 72 20 158/82 (107) 96 12/13/18 20:00 Nasal Cannula 2.0 12/13/18 19:48 98 Nasal Cannula 2.0 28 12/13/18 16:00 69 12/13/18 16:00 Nasal Cannula 2.0 12/13/18 16:00 97.5 67 20 157/88 (111) 98 12/13/18 12:00 62 12/13/18 12:00 96.8 62 16 144/79 (100) 100 Intake and Output 12/13/18 12/14/18 19:00 07:00 Intake Total 240 ml 150 ml Output Total 1250 ml Balance -1010 ml 150 ml Intake Oral 240 ml 150 ml Output Urine Total 1250 ml # Voids 1 2 # Bowel Movements 3 Laboratory Tests Test 12/13/18 14:40 Vancomycin Level Trough 5.9 ug/mL (5.0-12.0) Microbiology Date/Time Source Procedure Growth Status 12/11/18 13:29 Urine,Clean Catch Urine Culture - Final Escherichia Coli Complete Objective HEAD AND NECK: No JVD. LUNGS: Decreased breath sounds. CARDIOVASCULAR: Regular S1 and S2 with no gallop. ABDOMEN: Soft. EXTREMITIES: Bilateral 2+ pitting edema and cellulitis. Mikey Snyder MD Dec 14, 2018 11:41
[2018-12-14 12:00] VITALS: BP 138/62
[2018-12-14] MEDS ORDERED: Zoysn 3.37gm in NS 100ML IVPB SCH (12:00)
[2018-12-14] MEDS: Cephalexin 500mg cap ORAL SCH ×3 (13:25→20:10)
[2018-12-14] MEDS ORDERED: cefTRIAXone 1 GM in D5W 55 ML IVPB SCH (14:00)
--- NOTE | 2018-12-14 15:37 | NUR ---
NURSE NOTES:WOUND CARE NOTES: Pt presented on admission with edemae bilat lower ext. Both lower ext erythematous. Haemosiderin stain noted bilaterally. Ulcer with dry,necrotic cap noted to posterior R tibia. Open blister with 90% flap loss noted to medial/posterior L tibia. Scattered purpuras within base of wound. Small amt serous exudate noted. Both heels are dry and blanchable. Scattered dry plaques noted to buttocks and posterior aspects of bilat upper thighs. No erythema noted to sacral area. Recommendations: Cleanse wound L lower ext with Saline. Cover with Maxsorb Alginate.Apply Abd Pad.Wrap with Kerlix from Base of toes Daily and prn. Moisturize R lower ext with Remedy lotion . Cover Necrotic area with ABD pad. Wrap with Kerlix from Base of Toes Daily and prn. Apply Moisture Barrier Paste to Sacrum. Cover with Optifoam drsg.Change every 3 days and prn. Apply Moisture Barrier Paste to scrotum and buttocks with each incontinence care. Elevate both legs and heels off-loaded with pillows. Reposition at least every 2hours or as tolerated.
[2018-12-14 16:00] VITALS: BP 135/62
--- NOTE | 2018-12-14 17:00 | Progress Note ---
DATE: 12/14/2018 SUBJECTIVE: The patient was agitated this morning. Pulled out his IV access. He was given Haldol after he pulled out the IV access. The patient continues to be agitated. During the evaluation, he was status post IM Haldol and was calmer and manageable. MENTAL STATUS EXAMINATION: The patient is asleep and arousable. Mood is neutral to anxious. Affect is flat. Thought process is disorganized. Thought content, no suicidal or homicidal ideation. ASSESSMENT: Dementia with behavior disturbance. PLAN: 1. We will continue the Haldol 5 IM as needed. 2. Remeron 7.5 mg at bedtime. 3. Continue to follow and readjust the medications. Andrzej Fischer M.D. DR: IGNACIO JOB#: [id number] CC:
[2018-12-14] MEDS ORDERED: Vancomycin 1.5gm/NS Premix IVPB SCH (18:00)
[2018-12-14] MEDS ORDERED: Vancomycin 1.5gm/NS Premix 275 ML IVPB SCH (18:00)
--- NOTE | 2018-12-14 18:30 | NUR ---
NURSE NOTES: patient was agitated in the bed. kept trying to take the legs out of bed. RN prepared haldol IM PRN as ordered. RN explained patient the importance of safety, and patient understood verbally. Patient was cooperative nursing care and lying in bed right position. RN wasted haldol having witness BEN Bucio. patient in bed. alert. calm. trying to sleep. soft wrist restraint in place.
--- NOTE | 2018-12-14 19:14 | NUR ---
HAND-OFF: Report given to BEN Pederson.
--- NOTE | 2018-12-14 19:42 | NUR ---
NURSE NOTES: Received patient awake in bed, agitated. IV access intact, dressing dry. Bilateral soft wrist restraints noted, skin underneath asymptomatic, pulses present. Yellow gown and socks on. Bed low and locked. Cellulitis dressing changed today. Change tomorrow as ordered by wound care nurse.
[2018-12-14 20:00] VITALS: BP 130/67
[2018-12-14] MEDS: Bactrim Susp 20ml NG SCH (20:11)
--- NOTE | 2018-12-14 21:35 | General Progress Note ---
Assessment/Plan Problem List: (1) Cellulitis ICD Codes: L03.90 - Cellulitis, unspecified SNOMED: 576025902 (2) Fever ICD Codes: R50.9 - Fever, unspecified SNOMED: 081016556 (3) Elevated WBCs ICD Codes: D72.829 - Elevated white blood cell count, unspecified SNOMED: 494076722, 386940945 (4) Hypoalbuminemia ICD Codes: E88.09 - Other disorders of plasma-protein metabolism, not elsewhere classified SNOMED: 354811930 (5) Sepsis ICD Codes: A41.9 - Sepsis, unspecified organism SNOMED: 80441298 Status: progressing, deteriorating Assessment/Plan: leukocytosis improving less lethargic refuses iv so changed to po abx ams 'psychosis sepsis afebrile reviewed chart and labs and meds Subjective ROS Limited/Unobtainable: Yes Allergies: Coded Allergies: No Known Allergies (Unverified , 12/06/17) Objective Last 24 Hour Vital Signs Date Time Temp Pulse Resp B/P (MAP) Pulse Ox O2 Delivery O2 Flow Rate FiO2 12/14/18 20:01 99 Nasal Cannula 2.0 28 12/14/18 20:00 98.7 77 18 130/67 (88) 97 12/14/18 16:00 98.7 82 16 135/62 (86) 100 12/14/18 12:00 98.0 67 17 138/62 (87) 95 12/14/18 11:32 97 Nasal Cannula 2.0 28 12/14/18 09:00 Nasal Cannula 2.0 12/14/18 08:00 97.3 62 18 133/63 (86) 96 12/14/18 04:00 97.6 74 18 154/65 (94) 96 12/14/18 00:00 98.7 72 20 139/69 (92) 96 Intake and Output 12/13/18 12/14/18 19:00 07:00 Intake Total 240 ml 150 ml Output Total 1250 ml Balance -1010 ml 150 ml Intake Oral 240 ml 150 ml Output Urine Total 1250 ml # Voids 1 2 # Bowel Movements 3 Height (Feet): 6 Height (Inches): 0.00 Weight (Pounds): 297 Neck: supple Cardiovascular: normal rate Respiratory/Chest: lungs clear Abdomen: soft Patric Alonso MD Dec 14, 2018 21:35
--- NOTE | 2018-12-14 22:42 | NUR ---
RESPIRATORY NOTE: pt refused to be placed on bipap. pt is on 2 L/n SpO2 95-96%. no s/s of respiratory distress noted. BEN Pederson notified.
--- NOTE | 2018-12-14 23:49 | Pulmonology Progress Note ---
Assessment/Plan Assessment/Plan HPI Patient is an 83 year old man admitted with lower extremity cellulitis, worsening renal function, volume overload. On antibiotics per ID. He has a past history of dementia, admitted from alf with fever of 102 F. Patient is morbidly obese. Patient denies chest pain, shortness of breath, palpitation , diaphoresis. Awake, stable vital signs, mildly elevated CO2 on ABG, atelectasis on CXR RLZ. On PRN Bipap - uses occasionally Psychiatry following for sedation Allergies: No Known Allergies Past Medical History: Morbid obesity, Dementia, CKD, Hypertension, CHF All Other Systems: negative except mentioned in HPI Physical Exam Vital Signs Noted General Appearance: Awake, non-toxic, no distress, obese Head: normocephalic, atraumatic Eyes: bilateral eye normal inspection, bilateral eye PERRL ENT: hearing grossly normal, normal pharynx, no angioedema, moist mm, No LN Neck: full range of motion, supple/symm/no masses Respiratory: chest non-tender, lungs clear, normal breath sounds, no rhonchi, no wheezing Cardiovascular: regular rate, rhythm, normal HS1, HS2, no edema, no murmur, normal capillary refill Gastrointestinal: non tender, soft, obese Genitourinary: no CVA tenderness Musculoskeletal: back normal, no calf tenderness, swelling - bilateral lower extremity swelling secondary to cellulitis Neurologic: responsive, motor strength/tone normal, moves all limbs Skin: ulcer right LE Impression: Cellulitis, possible pneumonia, antibiotics per ID Morbid Obesity Somnolence - improved Mildly elevated CO2 Possible Obesity hypoventilation Hypertension CHF CKD Dementia Plan IV antibiotics/ID BiPAP 15/5 PRN/QHS as tolerated Antibiotics HHN O2 for sats 90-94% PPX Monitor labs Will need OP sleep study EKG: Rate: normal Rhythm: NSR ST Segments: no acute changes Chest X-Ray: no consolidation, no effusion, no pneumothorax, RLZ atelectasis Subjective ROS Limited/Unobtainable: No Allergies: Coded Allergies: No Known Allergies (Unverified , 12/06/17) Objective Last 24 Hour Vital Signs Date Time Temp Pulse Resp B/P (MAP) Pulse Ox O2 Delivery O2 Flow Rate FiO2 12/14/18 22:31 Nasal Cannula 2.0 12/14/18 20:01 99 Nasal Cannula 2.0 28 12/14/18 20:00 98.7 77 18 130/67 (88) 97 12/14/18 16:00 98.7 82 16 135/62 (86) 100 12/14/18 12:00 98.0 67 17 138/62 (87) 95 12/14/18 11:32 97 Nasal Cannula 2.0 28 12/14/18 09:00 Nasal Cannula 2.0 12/14/18 08:00 97.3 62 18 133/63 (86) 96 12/14/18 04:00 97.6 74 18 154/65 (94) 96 12/14/18 00:00 98.7 72 20 139/69 (92) 96 Intake and Output 12/13/18 12/14/18 19:00 07:00 Intake Total 240 ml 150 ml Output Total 1250 ml Balance -1010 ml 150 ml Intake Oral 240 ml 150 ml Output Urine Total 1250 ml # Voids 1 2 # Bowel Movements 3 Current Medications Medications (Trade) Dose Ordered Sig/Arina Route PRN Reason Start Time Stop Time Status Last Admin Dose Admin Acetaminophen (Tylenol) 650 mg Q4H PRN ORAL Mild Pain/Temp > 100.5 12/13/18 23:15 01/07/19 23:14 Acetaminophen (Tylenol) 650 mg Q4H PRN RECTAL Mild Pain/Temp > 100.5 12/13/18 21:15 01/08/19 01:14 Cephalexin (Keflex) 500 mg FOUR TIMES A DAY ORAL 12/14/18 13:00 12/21/18 12:59 12/14/18 20:10 Docusate Sodium (Colace) 100 mg THREE TIMES A DAY ORAL 12/14/18 09:00 01/09/19 17:59 12/14/18 17:18 Haloperidol Lactate (Haldol) 5 mg Q6H PRN IM Agitation 12/13/18 22:00 01/12/19 15:59 12/14/18 18:32 Heparin Sodium (Porcine) (Heparin 5000 units/ml) 5,000 units EVERY 12 HOURS SUBQ 12/13/18 21:00 01/10/19 12:44 Mirtazapine (Remeron) 7.5 mg BEDTIME ORAL 12/14/18 21:00 01/13/19 20:59 12/14/18 20:11 Pantoprazole (Protonix) 40 mg EVERY 12 HOURS ORAL 12/13/18 21:00 01/09/19 20:59 12/14/18 20:10 Spironolactone (Aldactone) 50 mg DAILY ORAL 12/14/18 09:00 01/08/19 08:59 Tamsulosin HCl (Flomax) 0.4 mg Q12HR ORAL 12/14/18 09:00 01/13/19 08:59 12/14/18 20:09 Trimethoprim/ Sulfamethoxazole (Bactrim-DS) 20 ml EVERY 12 HOURS NG 12/14/18 21:00 12/21/18 20:59 12/14/18 20:11 Musa Gordillo MD Dec 14, 2018 23:49
[2018-12-15] VITALS: BP 115/52
[2018-12-15] MEDS: Haloperidol 5mg/ml Inj IM PRN (03:38)
[2018-12-15 04:00] VITALS: BP 124/70
[2018-12-15 06:31] LABS: BASOPHILS % (AUTO) 1.5 % (0.0-2.0); EOSINOPHILS % (AUTO) 6.2 % (0.0-3.0); HEMATOCRIT 40.4 % (42.0-52.0); HEMOGLOBIN 13.2 G/DL (14.2-18.0); LYMPHOCYTES % (AUTO) 17.8 % (20.0-45.0); MEAN CORPUSCULAR VOLUME 95 FL (80-99); MONOCYTES % (AUTO) 9.6 % (1.0-10.0); NEUTROPHILS % (AUTO) 64.9 % (45.0-75.0); PLATELET COUNT 292 K/UL (150-450); RED BLOOD COUNT 4.25 M/UL (4.70-6.10); WHITE BLOOD COUNT 11.5 K/UL (4.8-10.8)
[2018-12-15 06:47] LABS: ALANINE AMINOTRANSFERASE 36 U/L (12-78); ALBUMIN 2.4 G/DL (3.4-5.0); ALBUMIN/GLOBULIN RATIO 0.5 (1.0-2.7); ALKALINE PHOSPHATASE 58 U/L (46-116); ANION GAP 5 mmol/L (5-15); ASPARTATE AMINO TRANSFERASE 32 U/L (15-37); BILIRUBIN,TOTAL 0.4 MG/DL (0.2-1.0); BLOOD UREA NITROGEN 27 mg/dL (7-18); CALCIUM 8.8 MG/DL (8.5-10.1); CARBON DIOXIDE 34 MMOL/L (21-32); CHLORIDE 103 MMOL/L (98-107); CREATININE 1.2 MG/DL (0.55-1.30); PHOSPHORUS 3.1 MG/DL (2.5-4.9); POTASSIUM 3.6 MMOL/L (3.5-5.1); SODIUM 142 MMOL/L (136-145)
--- NOTE | 2018-12-15 07:01 | NUR ---
HAND-OFF: Report given to [facility] Ibarra.
--- NOTE | 2018-12-15 07:50 | NUR ---
NURSE NOTES: received report from BEN Pederson. patient in bed, alert. confused. forgetful. verbally responsive. no respiratory distress noted. no c/o pain at this time. new IV on LFA 24. saline lock intact. soft restraint on both wrist in place. skin intact. dressing on both lower extremities intact. clean and dry. bed in the lowest position and locked. call light within reach. continue to provide plan of care.
[2018-12-15 08:00] VITALS: BP 121/42
[2018-12-15] MEDS: Cephalexin 500mg cap ORAL SCH ×5 (08:43→21:00)
[2018-12-15] MEDS: Tamsulosin 0.4mg cap ORAL SCH ×2 (08:43→21:00)
[2018-12-15] MEDS: Docusate 100mg cap ORAL SCH ×4 (08:43→17:41)
[2018-12-15] MEDS: Spironolactone 50mg tab ORAL SCH (08:43)
[2018-12-15] MEDS: Bactrim Susp 20ml NG SCH ×2 (08:43→21:00)
[2018-12-15] MEDS: Heparin 5000 units/ml inj SUBQ SCH ×2 (08:44→21:00)
--- NOTE | 2018-12-15 10:53 | Pulmonology Progress Note ---
Assessment/Plan Assessment/Plan HPI Patient is an 83 year old man admitted with lower extremity cellulitis, worsening renal function, volume overload. On antibiotics per ID. He has a past history of dementia, [facility] from jail with fever of 102 F. Patient is morbidly obese. Patient denies chest pain, shortness of breath, palpitation , diaphoresis. Awake, stable vital signs, mildly elevated CO2 on ABG, atelectasis on CXR RLZ. On PRN Bipap - uses occasionally Psychiatry following for sedation Allergies: No Known Allergies Past Medical History: Morbid obesity, Dementia, CKD, Hypertension, CHF All Other Systems: negative except mentioned in HPI Physical Exam Vital Signs Noted General Appearance: Awake, non-toxic, no distress, obese Head: normocephalic, atraumatic Eyes: bilateral eye normal inspection, bilateral eye PERRL ENT: hearing grossly normal, normal pharynx, no angioedema, moist mm, No LN Neck: full range of motion, supple/symm/no masses Respiratory: chest non-tender, lungs clear, normal breath sounds, no rhonchi, no wheezing Cardiovascular: regular rate, rhythm, normal HS1, HS2, no edema, no murmur, normal capillary refill Gastrointestinal: non tender, soft, obese Genitourinary: no CVA tenderness Musculoskeletal: back normal, no calf tenderness, swelling - bilateral lower extremity swelling secondary to cellulitis Neurologic: responsive, motor strength/tone normal, moves all limbs Skin: ulcer right LE Impression: Cellulitis, possible pneumonia, antibiotics per ID Morbid Obesity Somnolence - improved Mildly elevated CO2 Possible Obesity hypoventilation Hypertension CHF CKD Dementia Plan IV antibiotics/ID BiPAP 15/5 PRN/QHS as tolerated Antibiotics HHN O2 for sats 90-94% PPX Monitor labs Will need OP sleep study EKG: Rate: normal Rhythm: NSR ST Segments: no acute changes Chest X-Ray: no consolidation, no effusion, no pneumothorax, RLZ atelectasis Subjective ROS Limited/Unobtainable: No Allergies: Coded Allergies: No Known Allergies (Unverified , 12/06/17) Objective Last 24 Hour Vital Signs Date Time Temp Pulse Resp B/P (MAP) Pulse Ox O2 Delivery O2 Flow Rate FiO2 12/15/18 09:09 97 Nasal Cannula 2.0 28 12/15/18 09:00 Nasal Cannula 2.0 12/15/18 08:00 98.2 72 18 121/42 (68) 97 12/15/18 04:00 98.4 69 18 124/70 (88) 97 12/15/18 00:00 98.6 64 18 115/52 (73) 97 12/14/18 22:31 Nasal Cannula 2.0 12/14/18 20:01 99 Nasal Cannula 2.0 28 12/14/18 20:00 98.7 77 18 130/67 (88) 97 12/14/18 16:00 98.7 82 16 135/62 (86) 100 12/14/18 12:00 98.0 67 17 138/62 (87) 95 12/14/18 11:32 97 Nasal Cannula 2.0 28 Intake and Output 12/14/18 12/15/18 18:59 06:59 Intake Total 200 ml 300 ml Output Total 1000 ml Balance -800 ml 300 ml Intake Oral 200 ml 300 ml Output Urine Total 1000 ml # Voids 3 # Bowel Movements 1 3 Laboratory Tests 12/15/18 05:30: White Blood Count 11.5H, Red Blood Count 4.25L, Hemoglobin 13.2L, Hematocrit 40.4L, Mean Corpuscular Volume 95, Mean Corpuscular Hemoglobin 31.0, Mean Corpuscular Hemoglobin Concent 32.6, Red Cell Distribution Width 12.0, Platelet Count 292, Mean Platelet Volume 6.5, Neutrophils (%) (Auto) 64.9, Lymphocytes (% ) (Auto) 17.8L, Monocytes (%) (Auto) 9.6, Eosinophils (%) (Auto) 6.2H, Basophils (%) (Auto) 1.5, Sodium Level 142, Potassium Level 3.6, Chloride Level 103, Carbon Dioxide Level 34H, Anion Gap 5, Blood Urea Nitrogen 27H, Creatinine 1.2, Estimat Glomerular Filtration Rate , Glucose Level 110H, Uric Acid 5.3, Calcium Level 8.8, Phosphorus Level 3.1, Total Bilirubin 0.4, Aspartate Amino Transf (AST/SGOT) 32, Alanine Aminotransferase (ALT/SGPT) 36, Alkaline Phosphatase 58, C-Reactive Protein, Quantitative 12.3H, Pro-B-Type Natriuretic Peptide 1158H, Total Protein 7.3, Albumin 2.4L, Globulin 4.9, Albumin/Globulin Ratio 0.5L Current Medications Medications (Trade) Dose Ordered Sig/Arina Route PRN Reason Start Time Stop Time Status Last Admin Dose Admin Acetaminophen (Tylenol) 650 mg Q4H PRN ORAL Mild Pain/Temp > 100.5 12/13/18 23:15 01/07/19 23:14 Acetaminophen (Tylenol) 650 mg Q4H PRN RECTAL Mild Pain/Temp > 100.5 12/13/18 21:15 01/08/19 01:14 Cephalexin (Keflex) 500 mg FOUR TIMES A DAY ORAL 12/14/18 13:00 12/21/18 12:59 12/15/18 08:43 Docusate Sodium (Colace) 100 mg THREE TIMES A DAY ORAL 12/14/18 09:00 01/09/19 17:59 12/15/18 08:43 Haloperidol Lactate (Haldol) 5 mg Q6H PRN IM Agitation 12/13/18 22:00 01/12/19 15:59 12/15/18 03:38 Heparin Sodium (Porcine) (Heparin 5000 units/ml) 5,000 units EVERY 12 HOURS SUBQ 12/13/18 21:00 01/10/19 12:44 12/15/18 08:44 Mirtazapine (Remeron) 7.5 mg BEDTIME ORAL 12/14/18 21:00 01/13/19 20:59 12/14/18 20:11 Pantoprazole (Protonix) 40 mg EVERY 12 HOURS ORAL 12/13/18 21:00 01/09/19 20:59 12/15/18 08:43 Spironolactone (Aldactone) 50 mg DAILY ORAL 12/14/18 09:00 01/08/19 08:59 12/15/18 08:43 Tamsulosin HCl (Flomax) 0.4 mg Q12HR ORAL 12/14/18 09:00 01/13/19 08:59 12/15/18 08:43 Trimethoprim/ Sulfamethoxazole (Bactrim-DS) 20 ml EVERY 12 HOURS NG 12/14/18 21:00 12/21/18 20:59 12/15/18 08:43 Musa Gordillo MD Dec 15, 2018 10:53
--- NOTE | 2018-12-15 11:38 | Cardiac Electrophysiology PN ---
Assessment/Plan Assessment/Plan 1. Frequent PVCs. Echocardiogram showed ejection fraction of 60%. Ruled out for myocardial infarction. Keep the magnesium more than 2 and potassium more than 4. 2. Hypertension on Aldactone 50 mg daily 3. Bilateral lower extremity edema and cellulitis on vancomycin per ID. BNP also maddy from 500 to >1100. Add Lasix 40 mg iv daily and check BNP and renal fx in am 4. Altered mental status still in restraints 5. 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 OANH RN Subjective Subjective Confused in restraints.No CP or SOB on iv Abx. RN at bedside. Received 20 mg iv Lasix yesterday Objective Last 24 Hour Vital Signs Date Time Temp Pulse Resp B/P (MAP) Pulse Ox O2 Delivery O2 Flow Rate FiO2 12/15/18 09:09 97 Nasal Cannula 2.0 28 12/15/18 09:00 Nasal Cannula 2.0 12/15/18 08:00 98.2 72 18 121/42 (68) 97 12/15/18 04:00 98.4 69 18 124/70 (88) 97 12/15/18 00:00 98.6 64 18 115/52 (73) 97 12/14/18 22:31 Nasal Cannula 2.0 12/14/18 20:01 99 Nasal Cannula 2.0 28 12/14/18 20:00 98.7 77 18 130/67 (88) 97 12/14/18 16:00 98.7 82 16 135/62 (86) 100 12/14/18 12:00 98.0 67 17 138/62 (87) 95 Intake and Output 12/14/18 12/15/18 18:59 06:59 Intake Total 200 ml 300 ml Output Total 1000 ml Balance -800 ml 300 ml Intake Oral 200 ml 300 ml Output Urine Total 1000 ml # Voids 3 # Bowel Movements 1 3 Laboratory Tests Test 12/15/18 05:30 White Blood Count 11.5 K/UL (4.8-10.8) H Red Blood Count 4.25 M/UL (4.70-6.10) L Hemoglobin 13.2 G/DL (14.2-18.0) L Hematocrit 40.4 % (42.0-52.0) L Mean Corpuscular Volume 95 FL (80-99) Mean Corpuscular Hemoglobin 31.0 PG (27.0-31.0) Mean Corpuscular Hemoglobin Concent 32.6 G/DL (32.0-36.0) Red Cell Distribution Width 12.0 % (11.6-14.8) Platelet Count 292 K/UL (150-450) Mean Platelet Volume 6.5 FL (6.5-10.1) Neutrophils (%) (Auto) 64.9 % (45.0-75.0) Lymphocytes (%) (Auto) 17.8 % (20.0-45.0) L Monocytes (%) (Auto) 9.6 % (1.0-10.0) Eosinophils (%) (Auto) 6.2 % (0.0-3.0) H Basophils (%) (Auto) 1.5 % (0.0-2.0) Sodium Level 142 MMOL/L (136-145) Potassium Level 3.6 MMOL/L (3.5-5.1) Chloride Level 103 MMOL/L (98-107) Carbon Dioxide Level 34 MMOL/L (21-32) H Anion Gap 5 mmol/L (5-15) Blood Urea Nitrogen 27 mg/dL (7-18) H Creatinine 1.2 MG/DL (0.55-1.30) Estimat Glomerular Filtration Rate mL/min (>60) Glucose Level 110 MG/DL (74-106) H Uric Acid 5.3 MG/DL (2.6-7.2) Calcium Level 8.8 MG/DL (8.5-10.1) Phosphorus Level 3.1 MG/DL (2.5-4.9) Total Bilirubin 0.4 MG/DL (0.2-1.0) Aspartate Amino Transf (AST/SGOT) 32 U/L (15-37) Alanine Aminotransferase (ALT/SGPT) 36 U/L (12-78) Alkaline Phosphatase 58 U/L (46-116) C-Reactive Protein, Quantitative 12.3 mg/dL (0.00-0.90) H Pro-B-Type Natriuretic Peptide 1158 pg/mL (0-125) H Total Protein 7.3 G/DL (6.4-8.2) Albumin 2.4 G/DL (3.4-5.0) L Globulin 4.9 g/dL Albumin/Globulin Ratio 0.5 (1.0-2.7) L Objective HEAD AND NECK: No JVD. LUNGS: Decreased breath sounds. CARDIOVASCULAR: Regular S1 and S2 with no gallop. ABDOMEN: Soft. EXTREMITIES: Bilateral 1+ pitting edema and cellulitis covered with dressings. Mikey Snyder MD Dec 15, 2018 11:38
[2018-12-15 12:00] VITALS: BP 121/64
--- NOTE | 2018-12-15 12:17 | NUR ---
NURSE NOTES: patient refused to take noon medications. colace and keflex. RN explained the risks and benefits to the patient. alert. confused. aggressive. no respiratory distress noted. no c/o pain at this timne.
--- NOTE | 2018-12-15 13:09 | Infectious Diseases Prog Note ---
Assessment/Plan Assessment/Plan IMPRESSION: Sepsis, resolving Cellulitis of left lower extremity. E. coli [facility] Dementia, morbid obesity, hypertension, lactic acidosis, chronic kidney disease. Altered mental status RECOMMENDATION: continue Bactrim & Keflex Subjective ROS Limited/Unobtainable: Yes Neurologic: Reports: other - more alert, on restraint Allergies: Coded Allergies: No Known Allergies (Unverified , 12/06/17) Objective Vital Signs Last 24 Hour Vital Signs Date Time Temp Pulse Resp B/P (MAP) Pulse Ox O2 Delivery O2 Flow Rate FiO2 12/15/18 12:00 98.0 74 18 121/64 (83) 97 12/15/18 09:09 97 Nasal Cannula 2.0 28 12/15/18 09:00 Nasal Cannula 2.0 12/15/18 08:00 98.2 72 18 121/42 (68) 97 12/15/18 04:00 98.4 69 18 124/70 (88) 97 12/15/18 00:00 98.6 64 18 115/52 (73) 97 12/14/18 22:31 Nasal Cannula 2.0 12/14/18 20:01 99 Nasal Cannula 2.0 28 12/14/18 20:00 98.7 77 18 130/67 (88) 97 12/14/18 16:00 98.7 82 16 135/62 (86) 100 Height (Feet): 6 Height (Inches): 0.00 Weight (Pounds): 295 HEENT: mucous membranes moist Respiratory/Chest: lungs clear Cardiovascular: normal rate Abdomen: soft, non tender Extremities: other - edema of legs Skin: other - erythema of legs Neurologic/Psychiatric: alert, responsive Laboratory Tests Test 12/15/18 05:30 White Blood Count 11.5 K/UL (4.8-10.8) H Red Blood Count 4.25 M/UL (4.70-6.10) L Hemoglobin 13.2 G/DL (14.2-18.0) L Hematocrit 40.4 % (42.0-52.0) L Mean Corpuscular Volume 95 FL (80-99) Mean Corpuscular Hemoglobin 31.0 PG (27.0-31.0) Mean Corpuscular Hemoglobin Concent 32.6 G/DL (32.0-36.0) Red Cell Distribution Width 12.0 % (11.6-14.8) Platelet Count 292 K/UL (150-450) Mean Platelet Volume 6.5 FL (6.5-10.1) Neutrophils (%) (Auto) 64.9 % (45.0-75.0) Lymphocytes (%) (Auto) 17.8 % (20.0-45.0) L Monocytes (%) (Auto) 9.6 % (1.0-10.0) Eosinophils (%) (Auto) 6.2 % (0.0-3.0) H Basophils (%) (Auto) 1.5 % (0.0-2.0) Sodium Level 142 MMOL/L (136-145) Potassium Level 3.6 MMOL/L (3.5-5.1) Chloride Level 103 MMOL/L (98-107) Carbon Dioxide Level 34 MMOL/L (21-32) H Anion Gap 5 mmol/L (5-15) Blood Urea Nitrogen 27 mg/dL (7-18) H Creatinine 1.2 MG/DL (0.55-1.30) Estimat Glomerular Filtration Rate mL/min (>60) Glucose Level 110 MG/DL (74-106) H Uric Acid 5.3 MG/DL (2.6-7.2) Calcium Level 8.8 MG/DL (8.5-10.1) Phosphorus Level 3.1 MG/DL (2.5-4.9) Total Bilirubin 0.4 MG/DL (0.2-1.0) Aspartate Amino Transf (AST/SGOT) 32 U/L (15-37) Alanine Aminotransferase (ALT/SGPT) 36 U/L (12-78) Alkaline Phosphatase 58 U/L (46-116) C-Reactive Protein, Quantitative 12.3 mg/dL (0.00-0.90) H Pro-B-Type Natriuretic Peptide 1158 pg/mL (0-125) H Total Protein 7.3 G/DL (6.4-8.2) Albumin 2.4 G/DL (3.4-5.0) L Globulin 4.9 g/dL Albumin/Globulin Ratio 0.5 (1.0-2.7) L Current Medications Medications (Trade) Dose Ordered Sig/Arina Route PRN Reason Start Time Stop Time Status Last Admin Dose Admin Acetaminophen (Tylenol) 650 mg Q4H PRN ORAL Mild Pain/Temp > 100.5 12/13/18 23:15 01/07/19 23:14 Acetaminophen (Tylenol) 650 mg Q4H PRN RECTAL Mild Pain/Temp > 100.5 12/13/18 21:15 01/08/19 01:14 Cephalexin (Keflex) 500 mg FOUR TIMES A DAY ORAL 12/14/18 13:00 12/21/18 12:59 12/15/18 08:43 Docusate Sodium (Colace) 100 mg THREE TIMES A DAY ORAL 12/14/18 09:00 01/09/19 17:59 12/15/18 08:43 Furosemide (Lasix) 40 mg DAILY IV 12/16/18 09:00 01/15/19 08:59 Haloperidol Lactate (Haldol) 5 mg Q6H PRN IM Agitation 12/13/18 22:00 01/12/19 15:59 12/15/18 03:38 Heparin Sodium (Porcine) (Heparin 5000 units/ml) 5,000 units EVERY 12 HOURS SUBQ 12/13/18 21:00 01/10/19 12:44 12/15/18 08:44 Mirtazapine (Remeron) 7.5 mg BEDTIME ORAL 12/14/18 21:00 01/13/19 20:59 12/14/18 20:11 Pantoprazole (Protonix) 40 mg EVERY 12 HOURS ORAL 12/13/18 21:00 01/09/19 20:59 12/15/18 08:43 Spironolactone (Aldactone) 50 mg DAILY ORAL 12/14/18 09:00 01/08/19 08:59 12/15/18 08:43 Tamsulosin HCl (Flomax) 0.4 mg Q12HR ORAL 12/14/18 09:00 01/13/19 08:59 12/15/18 08:43 Trimethoprim/ Sulfamethoxazole (Bactrim-DS) 20 ml EVERY 12 HOURS NG 12/14/18 21:00 12/21/18 20:59 12/15/18 08:43 Robert Lovelace MD Dec 15, 2018 13:09
--- NOTE | 2018-12-15 13:37 | NUR ---
CASE MANAGEMENT:REVIEW 12/15/18 SI: SEPSIS. CELLULITIS. AMS. 98.0 74 18 121/64 97% ON 2L/NC WBC+11.5 H/H-13.2/40.4 IS: IV LASIX QD BACTRIM PO Q12 REMERON PO QHS KEFLEX PO QID ALDACTONE PO QD : STEP DOWN UNIT DCP: FROM [facility]
--- NOTE | 2018-12-15 13:45 | Nephrology Progress Note ---
Assessment/Plan Problem List: (1) Renal failure (ARF), acute on chronic (2) Cellulitis (3) Elevated WBCs (4) Sepsis (5) UTI (urinary tract infection) Assessment presents with Fever and high WBCs and LE cellulitis CRP lowering Cr 1.5: h/o CKD Dementia HTN Obesity Lactic acidosis Plan Antibiotics slow diurese avoid nephrotoxics 2D echo Left ventricular ejection fraction estimated to be 50%. monitor renal parameters UA noted Subjective ROS Limited/Unobtainable: No Objective Objective Last 24 Hour Vital Signs Date Time Temp Pulse Resp B/P (MAP) Pulse Ox O2 Delivery O2 Flow Rate FiO2 12/15/18 12:00 98.0 74 18 121/64 (83) 97 12/15/18 09:09 97 Nasal Cannula 2.0 28 12/15/18 09:00 Nasal Cannula 2.0 12/15/18 08:00 98.2 72 18 121/42 (68) 97 12/15/18 04:00 98.4 69 18 124/70 (88) 97 12/15/18 00:00 98.6 64 18 115/52 (73) 97 12/14/18 22:31 Nasal Cannula 2.0 12/14/18 20:01 99 Nasal Cannula 2.0 28 12/14/18 20:00 98.7 77 18 130/67 (88) 97 12/14/18 16:00 98.7 82 16 135/62 (86) 100 Intake and Output 12/14/18 12/15/18 19:00 07:00 Intake Total 200 ml 300 ml Output Total 1000 ml Balance -800 ml 300 ml Intake Oral 200 ml 300 ml Output Urine Total 1000 ml # Voids 3 # Bowel Movements 1 3 Laboratory Tests 12/15/18 05:30: White Blood Count 11.5H, Red Blood Count 4.25L, Hemoglobin 13.2L, Hematocrit 40.4L, Mean Corpuscular Volume 95, Mean Corpuscular Hemoglobin 31.0, Mean Corpuscular Hemoglobin Concent 32.6, Red Cell Distribution Width 12.0, Platelet Count 292, Mean Platelet Volume 6.5, Neutrophils (%) (Auto) 64.9, Lymphocytes (% ) (Auto) 17.8L, Monocytes (%) (Auto) 9.6, Eosinophils (%) (Auto) 6.2H, Basophils (%) (Auto) 1.5, Sodium Level 142, Potassium Level 3.6, Chloride Level 103, Carbon Dioxide Level 34H, Anion Gap 5, Blood Urea Nitrogen 27H, Creatinine 1.2, Estimat Glomerular Filtration Rate , Glucose Level 110H, Uric Acid 5.3, Calcium Level 8.8, Phosphorus Level 3.1, Total Bilirubin 0.4, Aspartate Amino Transf (AST/SGOT) 32, Alanine Aminotransferase (ALT/SGPT) 36, Alkaline Phosphatase 58, C-Reactive Protein, Quantitative 12.3H, Pro-B-Type Natriuretic Peptide 1158H, Total Protein 7.3, Albumin 2.4L, Globulin 4.9, Albumin/Globulin Ratio 0.5L Height (Feet): 6 Height (Inches): 0.00 Weight (Pounds): 295 General Appearance: no apparent distress Objective no change Jay Rashid MD Dec 15, 2018 13:45
--- NOTE | 2018-12-15 14:21 | NUR ---
RD ASSESSMENT & RECOMMENDATIONS SEE CARE ACTIVITY FOR COMPLETE ASSESSMENT DAILY ESTIMATED NEEDS: Needs based on Obese, DM, cardiac 94kg abw 20-25 kcals/kg [id number] total kcals 1-1.5 g protein/kg 94-141 g total protein Fluid per MD NUTRITION DIAGNOSIS: Obesity etiology unknown (life style factors? excessive po intake?) as evidenced by pt w/ BMI >40, pt is 167% [place] Body Weight. CURRENT DIET:RENAY PO DIET RECOMMENDATIONS: [facility] MED + CARDIAC diet ADDITIONAL RECOMMENDATIONS: 1) Obtain a standing weight as able-> PT ON LASIX/ Require accurate wts Or calibrated bed scale wt on restraints Bed scale wt: 325# vs EMR wt: 297# 2) Hypoglycemics for BG control 3) Updated A1C 4) 1:1 feeds w/ all meals on restraints 5) MANOMETER TECHNICIAN eval for appropriate texture (po intake @50-75%)
[2018-12-15 16:00] VITALS: BP 124/61
[2018-12-15] MEDS ORDERED: NS 500ML ONE (16:29)
--- NOTE | 2018-12-15 16:41 | Hematology/Onc Progress Note ---
Assessment/Plan Assessment/Plan ASSESSMENT AND RECOMMENDATIONS: # Leukocytosis with a wbc of 30k likely due to infection/cellulitis --> given cefepime and vanc in er --> currently on ceph/doxy --> ceftriaxone/vanc-->bactrim/keflex --> monitor for improvement 30k-->25->15k-->11.5 --> per id care # Right greater that left swelling concerning for dvt due to wounds, cellulitis --> Begin short-acting ppx blood thinner heparin 5k sq tid ===> duplex of the lower ext ordered and neg for dvt # Anemia, mild. No w/u required at this time. --> Current Hgb >12 --> anemia panel on prn basis --> no evidence of hemolysis is noted # Tinea pedis in right foot. --> Cont topical clotrimazole on right foot especially between the toes prn # Acute renal failure, improving. # Morbid obesity. # History of dementia. # History of hypertension. # CHF cards eval prn # Agitation as per psych, currently on ativan prn # Dvt ppx wth heparin sq Appreciate consultation greatly. Subjective Allergies: Coded Allergies: No Known Allergies (Unverified , 12/06/17) Subjective 12/10: on restraints, no acute events, duplex results pending 12/11: on abx, rocephin/vanc, cellulitis better, not hungry 12/13: remains on abx, confused, on restraints, agitated 12/14: contact isolation, awake and agitated, urine cx positive, on vanco/ ceftriaxone 12/15: awake and confused, no acute events, afebrile, nc 2L Objective Objective Current Medications Medications (Trade) Dose Ordered Sig/Arina Route PRN Reason Start Time Stop Time Status Last Admin Dose Admin Acetaminophen (Tylenol) 650 mg Q4H PRN ORAL Mild Pain/Temp > 100.5 12/13/18 23:15 01/07/19 23:14 12/15/18 14:39 Acetaminophen (Tylenol) 650 mg Q4H PRN RECTAL Mild Pain/Temp > 100.5 12/13/18 21:15 01/08/19 01:14 Cephalexin (Keflex) 500 mg FOUR TIMES A DAY ORAL 12/14/18 13:00 12/21/18 12:59 12/15/18 08:43 Docusate Sodium (Colace) 100 mg THREE TIMES A DAY ORAL 12/14/18 09:00 01/09/19 17:59 12/15/18 08:43 Furosemide (Lasix) 40 mg DAILY IV 12/16/18 09:00 01/15/19 08:59 Haloperidol Lactate (Haldol) 5 mg Q6H PRN IM Agitation 12/13/18 22:00 01/12/19 15:59 12/15/18 03:38 Heparin Sodium (Porcine) (Heparin 5000 units/ml) 5,000 units EVERY 12 HOURS SUBQ 12/13/18 21:00 01/10/19 12:44 12/15/18 08:44 Mirtazapine (Remeron) 7.5 mg BEDTIME ORAL 12/14/18 21:00 01/13/19 20:59 12/14/18 20:11 Pantoprazole (Protonix) 40 mg EVERY 12 HOURS ORAL 12/13/18 21:00 01/09/19 20:59 12/15/18 08:43 Spironolactone (Aldactone) 50 mg DAILY ORAL 12/14/18 09:00 01/08/19 08:59 12/15/18 08:43 Tamsulosin HCl (Flomax) 0.4 mg Q12HR ORAL 12/14/18 09:00 01/13/19 08:59 12/15/18 08:43 Trimethoprim/ Sulfamethoxazole (Bactrim-DS) 20 ml EVERY 12 HOURS NG 12/14/18 21:00 12/21/18 20:59 12/15/18 08:43 Last 24 Hour Vital Signs Date Time Temp Pulse Resp B/P (MAP) Pulse Ox O2 Delivery O2 Flow Rate FiO2 12/15/18 16:00 97.4 74 20 124/61 (82) 95 12/15/18 12:00 98.0 74 18 121/64 (83) 97 12/15/18 09:09 97 Nasal Cannula 2.0 28 12/15/18 09:00 Nasal Cannula 2.0 12/15/18 08:00 98.2 72 18 121/42 (68) 97 12/15/18 04:00 98.4 69 18 124/70 (88) 97 12/15/18 00:00 98.6 64 18 115/52 (73) 97 12/14/18 22:31 Nasal Cannula 2.0 12/14/18 20:01 99 Nasal Cannula 2.0 28 12/14/18 20:00 98.7 77 18 130/67 (88) 97 12/14/18 16:00 98.7 82 16 135/62 (86) 100 12/14/18 12:00 98.0 67 17 138/62 (87) 95 12/14/18 11:32 97 Nasal Cannula 2.0 28 12/14/18 09:00 Nasal Cannula 2.0 12/14/18 08:00 97.3 62 18 133/63 (86) 96 12/14/18 04:00 97.6 74 18 154/65 (94) 96 12/14/18 00:00 98.7 72 20 139/69 (92) 96 12/13/18 20:00 99.0 72 20 158/82 (107) 96 12/13/18 20:00 Nasal Cannula 2.0 12/13/18 19:48 98 Nasal Cannula 2.0 28 Intake and Output 12/14/18 12/15/18 19:00 07:00 Intake Total 200 ml 300 ml Output Total 1000 ml Balance -800 ml 300 ml Intake Oral 200 ml 300 ml Output Urine Total 1000 ml # Voids 3 # Bowel Movements 1 3 Labs Test 12/13/18 08:40 12/13/18 14:40 12/15/18 05:30 White Blood Count 10.8 K/UL (4.8-10.8) 11.5 K/UL (4.8-10.8) Red Blood Count 3.94 M/UL (4.70-6.10) 4.25 M/UL (4.70-6.10) Hemoglobin 12.2 G/DL (14.2-18.0) 13.2 G/DL (14.2-18.0) Hematocrit 37.5 % (42.0-52.0) 40.4 % (42.0-52.0) Mean Corpuscular Volume 95 FL (80-99) 95 FL (80-99) Mean Corpuscular Hemoglobin 31.0 PG (27.0-31.0) 31.0 PG (27.0-31.0) Mean Corpuscular Hemoglobin Concent 32.5 G/DL (32.0-36.0) 32.6 G/DL (32.0-36.0) Red Cell Distribution Width 12.0 % (11.6-14.8) 12.0 % (11.6-14.8) Platelet Count 239 K/UL (150-450) 292 K/UL (150-450) Mean Platelet Volume 6.3 FL (6.5-10.1) 6.5 FL (6.5-10.1) Neutrophils (%) (Auto) 61.2 % (45.0-75.0) 64.9 % (45.0-75.0) Lymphocytes (%) (Auto) 16.2 % (20.0-45.0) 17.8 % (20.0-45.0) Monocytes (%) (Auto) 11.4 % (1.0-10.0) 9.6 % (1.0-10.0) Eosinophils (%) (Auto) 8.9 % (0.0-3.0) 6.2 % (0.0-3.0) Basophils (%) (Auto) 2.3 % (0.0-2.0) 1.5 % (0.0-2.0) Sodium Level 140 MMOL/L (136-145) 142 MMOL/L (136-145) Potassium Level 3.8 MMOL/L (3.5-5.1) 3.6 MMOL/L (3.5-5.1) Chloride Level 104 MMOL/L (98-107) 103 MMOL/L (98-107) Carbon Dioxide Level 33 MMOL/L (21-32) 34 MMOL/L (21-32) Blood Urea Nitrogen 27 mg/dL (7-18) 27 mg/dL (7-18) Creatinine 1.1 MG/DL (0.55-1.30) 1.2 MG/DL (0.55-1.30) Estimat Glomerular Filtration Rate mL/min (>60) mL/min (>60) Glucose Level 107 MG/DL (74-106) 110 MG/DL (74-106) Uric Acid 5.6 MG/DL (2.6-7.2) 5.3 MG/DL (2.6-7.2) Calcium Level 8.7 MG/DL (8.5-10.1) 8.8 MG/DL (8.5-10.1) Phosphorus Level 2.6 MG/DL (2.5-4.9) 3.1 MG/DL (2.5-4.9) Magnesium Level 2.1 MG/DL (1.8-2.4) Total Bilirubin 0.5 MG/DL (0.2-1.0) 0.4 MG/DL (0.2-1.0) Aspartate Amino Transf (AST/SGOT) 16 U/L (15-37) 32 U/L (15-37) Alanine Aminotransferase (ALT/SGPT) 23 U/L (12-78) 36 U/L (12-78) Alkaline Phosphatase 48 U/L (46-116) 58 U/L (46-116) Ammonia 31 umol/L (11-32) C-Reactive Protein, Quantitative 16.0 mg/dL (0.00-0.90) 12.3 mg/dL (0.00-0.90) Pro-B-Type Natriuretic Peptide 580 pg/mL (0-125) 1158 pg/mL (0-125) Total Protein 6.8 G/DL (6.4-8.2) 7.3 G/DL (6.4-8.2) Albumin 2.2 G/DL (3.4-5.0) 2.4 G/DL (3.4-5.0) Globulin 4.6 g/dL 4.9 g/dL Albumin/Globulin Ratio 0.5 (1.0-2.7) 0.5 (1.0-2.7) Vancomycin Level Trough 5.9 ug/mL (5.0-12.0) Anion Gap 5 mmol/L (5-15) Height (Feet): 6 Height (Inches): 0.00 Weight (Pounds): 295 Objective PHYSICAL EXAMINATION: VITAL SIGNS: reviewed GEN: No acute distress. Seems obese. Restraints++ HEART: Regular. LUNGS: Clear tab ABDOMEN: Obese, soft, and nontender. EXTREMITIES: Have erythema, warmness, b/l and multiple wounds noted SKIN: Have skin cracks between the right foot toes. Shawn Lopez MD Dec 15, 2018 16:41
--- NOTE | 2018-12-15 19:30 | NUR ---
HAND-OFF: Report given to DennisRN&BEN Jeffrey.
[2018-12-15 20:00] VITALS: BP 127/51
--- NOTE | 2018-12-15 20:02 | NUR ---
NURSE NOTES: Patient is in bed,awake, alert and oriented. Breathing on N/C 2L//hr. No acute distress or discomfort noted. IV site on left fore arm patent and intact. Noted with soft bilateral wrist restraints. Bed in low and locked position. Bed alarm is on. call light within reach. Instructed patient to use call light for for assistance. patient will be monitored.
--- NOTE | 2018-12-15 20:08 | Surgery Progress Note ---
Surgery Progress Note Subjective Additional Comments casimiro cute events comfortable afebrile stable labs noted Objective Last 24 Hour Vital Signs Date Time Temp Pulse Resp B/P (MAP) Pulse Ox O2 Delivery O2 Flow Rate FiO2 12/15/18 16:00 97.4 74 20 124/61 (82) 95 12/15/18 12:00 98.0 74 18 121/64 (83) 97 12/15/18 09:09 97 Nasal Cannula 2.0 28 12/15/18 09:00 Nasal Cannula 2.0 12/15/18 08:00 98.2 72 18 121/42 (68) 97 12/15/18 04:00 98.4 69 18 124/70 (88) 97 12/15/18 00:00 98.6 64 18 115/52 (73) 97 12/14/18 22:31 Nasal Cannula 2.0 I&O Intake and Output 12/14/18 12/15/18 19:00 07:00 Intake Total 200 ml 300 ml Output Total 1000 ml Balance -800 ml 300 ml Intake Oral 200 ml 300 ml Output Urine Total 1000 ml # Voids 3 # Bowel Movements 1 3 Dressing: other Wound: other Drains: other Cardiovascular: RSR Respiratory: clear Abdomen: soft, present bowel sounds Extremities: no cyanosis Laboratory Tests Test 12/15/18 05:30 White Blood Count 11.5 K/UL (4.8-10.8) H Red Blood Count 4.25 M/UL (4.70-6.10) L Hemoglobin 13.2 G/DL (14.2-18.0) L Hematocrit 40.4 % (42.0-52.0) L Mean Corpuscular Volume 95 FL (80-99) Mean Corpuscular Hemoglobin 31.0 PG (27.0-31.0) Mean Corpuscular Hemoglobin Concent 32.6 G/DL (32.0-36.0) Red Cell Distribution Width 12.0 % (11.6-14.8) Platelet Count 292 K/UL (150-450) Mean Platelet Volume 6.5 FL (6.5-10.1) Neutrophils (%) (Auto) 64.9 % (45.0-75.0) Lymphocytes (%) (Auto) 17.8 % (20.0-45.0) L Monocytes (%) (Auto) 9.6 % (1.0-10.0) Eosinophils (%) (Auto) 6.2 % (0.0-3.0) H Basophils (%) (Auto) 1.5 % (0.0-2.0) Sodium Level 142 MMOL/L (136-145) Potassium Level 3.6 MMOL/L (3.5-5.1) Chloride Level 103 MMOL/L (98-107) Carbon Dioxide Level 34 MMOL/L (21-32) H Anion Gap 5 mmol/L (5-15) Blood Urea Nitrogen 27 mg/dL (7-18) H Creatinine 1.2 MG/DL (0.55-1.30) Estimat Glomerular Filtration Rate mL/min (>60) Glucose Level 110 MG/DL (74-106) H Uric Acid 5.3 MG/DL (2.6-7.2) Calcium Level 8.8 MG/DL (8.5-10.1) Phosphorus Level 3.1 MG/DL (2.5-4.9) Total Bilirubin 0.4 MG/DL (0.2-1.0) Aspartate Amino Transf (AST/SGOT) 32 U/L (15-37) Alanine Aminotransferase (ALT/SGPT) 36 U/L (12-78) Alkaline Phosphatase 58 U/L (46-116) C-Reactive Protein, Quantitative 12.3 mg/dL (0.00-0.90) H Pro-B-Type Natriuretic Peptide 1158 pg/mL (0-125) H Total Protein 7.3 G/DL (6.4-8.2) Albumin 2.4 G/DL (3.4-5.0) L Globulin 4.9 g/dL Albumin/Globulin Ratio 0.5 (1.0-2.7) L Plan Problems: (1) Cellulitis Assessment & Plan: Right Tib fib xrays nml Left Tib fix xrays w/ There is subcutaneous edema involving the left leg. There is no fracture. The bones are osteopenic. exam with cellulitis. no abscess palpable on left right with small healing scab posterior cont IV Abx will follow clinically (2) Elevated WBCs (3) Sepsis Assessment & Plan: possible etiology lower extremity cellulitis cont abx no abscess to drain currently. mainly phlegmona cultures noted labs improving exam improving AM labs cont abx as per ID thank you (4) Fever Benyamini,Yayo Dec 15, 2018 20:08
--- NOTE | 2018-12-15 20:20 | NUR ---
NURSE NOTES: Patient is in bed,awake, alert and oriented. Breathing on N/C 2L//hr. No acute distress or discomfort noted. IV site on left fore arm patent and intact. Noted with soft bilateral wrist restraints, restraint sites asymptomatic.Pt allowed to have ROM exercises, hydration and nutrition was given. Pt will be frequently repositioned and cleaned. Bed in low and locked position. Bed alarm is on. Call light within reach. Instructed patient to use call light for for assistance. Patient will be monitored. Trainee, Jen IngramRN will be assisting in the care of this patient.
--- NOTE | 2018-12-15 22:12 | General Progress Note ---
Assessment/Plan Problem List: (1) Cellulitis ICD Codes: L03.90 - Cellulitis, unspecified SNOMED: 549986057 (2) Fever ICD Codes: R50.9 - Fever, unspecified SNOMED: 468641643 (3) Elevated WBCs ICD Codes: D72.829 - Elevated white blood cell count, unspecified SNOMED: 454328456, 009063005 (4) Hypoalbuminemia ICD Codes: E88.09 - Other disorders of plasma-protein metabolism, not elsewhere classified SNOMED: 862210455 (5) Sepsis ICD Codes: A41.9 - Sepsis, unspecified organism SNOMED: 35900467 Status: progressing, deteriorating Assessment/Plan: labs normalized dc in am afebrile sepsis improved afebrile reviewed chart and labs and meds Subjective ROS Limited/Unobtainable: Yes Allergies: Coded Allergies: No Known Allergies (Unverified , 12/06/17) Objective Last 24 Hour Vital Signs Date Time Temp Pulse Resp B/P (MAP) Pulse Ox O2 Delivery O2 Flow Rate FiO2 12/15/18 20:30 98 Nasal Cannula 2.0 28 12/15/18 16:00 97.4 74 20 124/61 (82) 95 12/15/18 12:00 98.0 74 18 121/64 (83) 97 12/15/18 09:09 97 Nasal Cannula 2.0 28 12/15/18 09:00 Nasal Cannula 2.0 12/15/18 08:00 98.2 72 18 121/42 (68) 97 12/15/18 04:00 98.4 69 18 124/70 (88) 97 12/15/18 00:00 98.6 64 18 115/52 (73) 97 12/14/18 22:31 Nasal Cannula 2.0 Intake and Output 12/14/18 12/15/18 19:00 07:00 Intake Total 200 ml 300 ml Output Total 1000 ml Balance -800 ml 300 ml Intake Oral 200 ml 300 ml Output Urine Total 1000 ml # Voids 3 # Bowel Movements 1 3 Laboratory Tests 12/15/18 05:30: White Blood Count 11.5H, Red Blood Count 4.25L, Hemoglobin 13.2L, Hematocrit 40.4L, Mean Corpuscular Volume 95, Mean Corpuscular Hemoglobin 31.0, Mean Corpuscular Hemoglobin Concent 32.6, Red Cell Distribution Width 12.0, Platelet Count 292, Mean Platelet Volume 6.5, Neutrophils (%) (Auto) 64.9, Lymphocytes (% ) (Auto) 17.8L, Monocytes (%) (Auto) 9.6, Eosinophils (%) (Auto) 6.2H, Basophils (%) (Auto) 1.5, Sodium Level 142, Potassium Level 3.6, Chloride Level 103, Carbon Dioxide Level 34H, Anion Gap 5, Blood Urea Nitrogen 27H, Creatinine 1.2, Estimat Glomerular Filtration Rate , Glucose Level 110H, Uric Acid 5.3, Calcium Level 8.8, Phosphorus Level 3.1, Total Bilirubin 0.4, Aspartate Amino Transf (AST/SGOT) 32, Alanine Aminotransferase (ALT/SGPT) 36, Alkaline Phosphatase 58, C-Reactive Protein, Quantitative 12.3H, Pro-B-Type Natriuretic Peptide 1158H, Total Protein 7.3, Albumin 2.4L, Globulin 4.9, Albumin/Globulin Ratio 0.5L Height (Feet): 6 Height (Inches): 0.00 Weight (Pounds): 295 General Appearance: confused Cardiovascular: normal rate Respiratory/Chest: chest wall non-tender Patric Aolnso MD Dec 15, 2018 22:12
--- NOTE | 2018-12-15 22:19 | NUR ---
NURSE NOTES: Patient refused his evening medication including Bactrim and Keflex PO despite education, encouragement multiple times.
[2018-12-16] VITALS: BP 132/62
--- NOTE | 2018-12-16 01:30 | NUR ---
NURSE NOTES: Patient is in bed, asleep. No c/o pain or discomfort at this time. Bilateral soft wrist restraints order renewed. Medications administered as ordered and assisted as needed. Repositioned and hydrated frequently. Bed in low and locked position Call light within reach. Patient will be monitored.
--- NOTE | 2018-12-16 03:15 | Progress Note ---
DATE: 12/15/2018 SUBJECTIVE: The patient is calmer, more manageable. He still continues to yell and scream. He is in bilateral soft restraints. MENTAL STATUS EXAMINATION: The patient is alert and disoriented. Mood is agitated. Affect is flat. Thought process, there is a paucity of thought content. Thought content, no suicidal or homicidal ideation. Cognition is impaired. ASSESSMENT: Dementia with behavior disturbance. PLAN: We will continue current medications. Andrzej Fischer M.D. DR: MORENITA JOB#: [id number] CC:
[2018-12-16 04:00] VITALS: BP 132/52
[2018-12-16 06:36] LABS: ANION GAP 9 mmol/L (5-15); BLOOD UREA NITROGEN 29 mg/dL (7-18); CALCIUM 8.8 MG/DL (8.5-10.1); CARBON DIOXIDE 31 MMOL/L (21-32); CHLORIDE 102 MMOL/L (98-107); CREATININE 1.3 MG/DL (0.55-1.30); POTASSIUM 4.2 MMOL/L (3.5-5.1); SODIUM 142 MMOL/L (136-145)
--- NOTE | 2018-12-16 07:25 | NUR ---
HAND-OFF: Report given to Martha Albert RN.
--- NOTE | 2018-12-16 07:35 | NUR ---
NURSE NOTES: Received patient in bed asleep. no sign ofr distress on N/C 2L//hr.Noted with soft bilateral wrist restraints, . Pt will be frequently repositioned and cleaned. on fall and aspiration precaution,Bed in low and locked position. Bed alarm is on. Call light within reach. Instructed patient to use call light for for assistance. pj santiago
[2018-12-16 08:00] VITALS: BP 131/62
[2018-12-16] MEDS: Cephalexin 500mg cap ORAL SCH ×2 (08:16→12:36)
[2018-12-16] MEDS: Tamsulosin 0.4mg cap ORAL SCH (08:17)
[2018-12-16] MEDS: Docusate 100mg cap ORAL SCH ×2 (08:17→12:36)
[2018-12-16] MEDS: Spironolactone 50mg tab ORAL SCH (08:17)
[2018-12-16] MEDS: Bactrim Susp 20ml NG SCH (08:17)
[2018-12-16] MEDS: Heparin 5000 units/ml inj SUBQ SCH (08:18)
--- NOTE | 2018-12-16 09:04 | NUR ---
nurse notes Dr Alonso called with order noted discharge patient back to [facility], patient family notified agreed with the plan of care, report given to Radha CONTRERAS accordingly jack
[2018-12-16] MEDS ORDERED: SULFAMETHOXAZO480 ML ORAL (09:10)
[2018-12-16] MEDS ORDERED: KEFLEX PED250 MG/5 M PO (09:11)
--- NOTE | 2018-12-16 10:47 | Cardiac Electrophysiology PN ---
Assessment/Plan Assessment/Plan 1. Frequent PVCs. Echocardiogram showed ejection fraction of 60%. Ruled out for myocardial infarction. Keep the magnesium more than 2 and potassium more than 4.Off tele now 2. Hypertension on Aldactone 50 mg daily 3. Bilateral lower extremity edema and cellulitis on vancomycin per ID. BNP also maddy from 500 to >1100. After Lasix 40 mg iv decreased to 500 again. Change to Lasix 40 po daily 4. Altered mental status still in restraints 5. 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 OANH RN Subjective Subjective Confused in restraints. No CP or SOB on iv Abx. RN at bedside. DC planning today Objective Last 24 Hour Vital Signs Date Time Temp Pulse Resp B/P (MAP) Pulse Ox O2 Delivery O2 Flow Rate FiO2 12/16/18 08:12 98 Nasal Cannula 2.0 28 12/16/18 08:00 98.2 63 18 131/62 (85) 97 12/16/18 08:00 Nasal Cannula 2.0 12/16/18 04:00 98.0 66 20 132/52 (78) 95 12/16/18 00:00 98.0 70 20 132/62 (85) 95 12/15/18 21:00 Nasal Cannula 2.0 12/15/18 20:30 98 Nasal Cannula 2.0 28 12/15/18 20:00 98.4 63 20 127/51 (76) 98 12/15/18 16:00 97.4 74 20 124/61 (82) 95 12/15/18 12:00 98.0 74 18 121/64 (83) 97 Intake and Output 12/15/18 12/16/18 18:59 06:59 Intake Total 140 ml 140 ml Output Total 1250 ml Balance 140 ml -1110 ml Intake Oral 140 ml 140 ml Output Urine Total 1000 ml Stool Total 250 ml # Voids 3 # Bowel Movements 1 Laboratory Tests Test 12/16/18 04:41 Sodium Level 142 MMOL/L (136-145) Potassium Level 4.2 MMOL/L (3.5-5.1) Chloride Level 102 MMOL/L (98-107) Carbon Dioxide Level 31 MMOL/L (21-32) Anion Gap 9 mmol/L (5-15) Blood Urea Nitrogen 29 mg/dL (7-18) H Creatinine 1.3 MG/DL (0.55-1.30) Estimat Glomerular Filtration Rate mL/min (>60) Glucose Level 152 MG/DL (74-106) H Calcium Level 8.8 MG/DL (8.5-10.1) Pro-B-Type Natriuretic Peptide 599 pg/mL (0-125) H Objective HEAD AND NECK: No JVD. LUNGS: Decreased breath sounds. CARDIOVASCULAR: Regular S1 and S2 with no gallop. ABDOMEN: Soft. EXTREMITIES: Bilateral 1+ pitting edema and cellulitis covered with dressings. Mikey Snyder MD Dec 16, 2018 10:47
[2018-12-16] MEDS ORDERED: FUROSEMIDE40 MG/5 ML ORAL (10:48)
[2018-12-16] MEDS ORDERED: FUROSEMIDE40 MG ORAL (10:48)
--- NOTE | 2018-12-16 10:57 | Nephrology Progress Note ---
Assessment/Plan Problem List: (1) Renal failure (ARF), acute on chronic (2) Cellulitis (3) Elevated WBCs (4) Sepsis (5) UTI (urinary tract infection) Assessment presents with Fever and high WBCs and LE cellulitis CRP lowering Cr 1.5: h/o CKD Dementia HTN Obesity Lactic acidosis Plan no labs today Antibiotics slow diurese avoid nephrotoxics 2D echo Left ventricular ejection fraction estimated to be 50%. monitor renal parameters UA noted Subjective ROS Limited/Unobtainable: No Constitutional: Reports: malaise Objective Objective Last 24 Hour Vital Signs Date Time Temp Pulse Resp B/P (MAP) Pulse Ox O2 Delivery O2 Flow Rate FiO2 12/16/18 08:12 98 Nasal Cannula 2.0 28 12/16/18 08:00 98.2 63 18 131/62 (85) 97 12/16/18 08:00 Nasal Cannula 2.0 12/16/18 04:00 98.0 66 20 132/52 (78) 95 12/16/18 00:00 98.0 70 20 132/62 (85) 95 12/15/18 21:00 Nasal Cannula 2.0 12/15/18 20:30 98 Nasal Cannula 2.0 28 12/15/18 20:00 98.4 63 20 127/51 (76) 98 12/15/18 16:00 97.4 74 20 124/61 (82) 95 12/15/18 12:00 98.0 74 18 121/64 (83) 97 Intake and Output 12/15/18 12/16/18 18:59 06:59 Intake Total 140 ml 140 ml Output Total 1250 ml Balance 140 ml -1110 ml Intake Oral 140 ml 140 ml Output Urine Total 1000 ml Stool Total 250 ml # Voids 3 # Bowel Movements 1 Laboratory Tests 12/16/18 04:41: Sodium Level 142, Potassium Level 4.2, Chloride Level 102, Carbon Dioxide Level 31, Anion Gap 9, Blood Urea Nitrogen 29H, Creatinine 1.3, Estimat Glomerular Filtration Rate , Glucose Level 152H, Calcium Level 8.8, Pro-B-Type Natriuretic Peptide 599H Height (Feet): 6 Height (Inches): 0.00 Weight (Pounds): 295 General Appearance: no apparent distress Objective no change Jay Rashid MD Dec 16, 2018 10:57
--- NOTE | 2018-12-16 11:32 | NUR ---
DISCHARGE PLANNED PATIENT IS RETURNING TO [facility] ROOM [address] T: [phone] FOR NURSE TO NURSE REPORT [facility] HAS BEEN ARRANGED FOR 1330 RELAY CHECKER
[2018-12-16 12:00] VITALS: BP 131/69
--- NOTE | 2018-12-16 13:03 | Diagnostic Imaging Report ---
APPROVED REPORT CPT Code: 71073 Present Symptoms Comments: EDEMA BILATERAL: Imaging reveals a patent deep venous system bilaterally. There is no evidence of thrombus within the common femoral, superficial femoral, popliteal or tibial segments. The greater saphenous veins are within normal limits. Doppler indicates normal spontaneous flow within these segments.
--- NOTE | 2018-12-16 13:35 | Hematology/Onc Progress Note ---
Assessment/Plan Assessment/Plan ASSESSMENT AND RECOMMENDATIONS: # Leukocytosis with a wbc of 30k likely due to infection/cellulitis --> given cefepime and vanc in er --> currently on ceph/doxy --> ceftriaxone/vanc-->bactrim/keflex --> monitor for improvement 30k-->25->15k-->11.5 --> per id care # Right greater that left swelling concerning for dvt due to wounds, cellulitis --> Begin short-acting ppx blood thinner heparin 5k sq tid ===> duplex of the lower ext ordered and neg for dvt # Anemia, mild. No w/u required at this time. --> Current Hgb >12->13 --> anemia panel on prn basis --> no evidence of hemolysis is noted # Tinea pedis in right foot. --> Cont topical clotrimazole on right foot especially between the toes prn # Acute renal failure, improving. # Morbid obesity. # History of dementia. # History of hypertension. # CHF cards eval prn # Agitation as per psych, currently on ativan prn # Dvt ppx wth heparin sq Appreciate consultation greatly. Subjective Cardiovascular: Denies: no symptoms, chest pain, edema, irregular heart rate, lightheadedness, palpitations, syncope, other Respiratory: Denies: no symptoms, cough, shortness of breath, SOB with excertion, SOB at rest, sputum, wheezing, other Genitourinary: Denies: no symptoms, burning, discharge, frequency, flank pain, hematuria, incontinence, pain, urgency, other Neurologic/Psychiatric: Denies: no symptoms, anxiety, depressed, emotional problems, headache, numbness, paresthesia, pre-existing deficit, seizure, tingling, tremors, weakness, other Endocrine: Denies: no symptoms, excessive sweating, flushing, intolerance to cold, intolerance to heat, increased hunger, increased thirst, increased urine, unexplained weight gain, unexplained weight loss, other Allergies: Coded Allergies: No Known Allergies (Unverified , 12/06/17) Subjective 12/10: on restraints, no acute events, duplex results pending 12/11: on abx, rocephin/vanc, cellulitis better, not hungry 12/13: remains on abx, confused, on restraints, agitated 12/14: contact isolation, awake and agitated, urine cx positive, on vanco/ ceftriaxone 12/15: awake and confused, no acute events, afebrile, nc 2L 12/16: no bleeding, night sweats, no major changes noted Objective Objective Current Medications Medications (Trade) Dose Ordered Sig/Arina Route PRN Reason Start Time Stop Time Status Last Admin Dose Admin Acetaminophen (Tylenol) 650 mg Q4H PRN ORAL Mild Pain/Temp > 100.5 12/13/18 23:15 01/07/19 23:14 12/15/18 14:39 Acetaminophen (Tylenol) 650 mg Q4H PRN RECTAL Mild Pain/Temp > 100.5 12/13/18 21:15 01/08/19 01:14 Cephalexin (Keflex) 500 mg FOUR TIMES A DAY ORAL 12/14/18 13:00 12/21/18 12:59 12/16/18 12:36 Docusate Sodium (Colace) 100 mg THREE TIMES A DAY ORAL 12/14/18 09:00 01/09/19 17:59 12/16/18 12:36 Furosemide (Lasix) 40 mg DAILY IV 12/16/18 09:00 01/15/19 08:59 12/16/18 08:29 Haloperidol Lactate (Haldol) 5 mg Q6H PRN IM Agitation 12/13/18 22:00 01/12/19 15:59 12/15/18 03:38 Heparin Sodium (Porcine) (Heparin 5000 units/ml) 5,000 units EVERY 12 HOURS SUBQ 12/13/18 21:00 01/10/19 12:44 12/16/18 08:18 Mirtazapine (Remeron) 7.5 mg BEDTIME ORAL 12/14/18 21:00 01/13/19 20:59 12/14/18 20:11 Pantoprazole (Protonix) 40 mg EVERY 12 HOURS ORAL 12/13/18 21:00 01/09/19 20:59 12/16/18 08:17 Spironolactone (Aldactone) 50 mg DAILY ORAL 12/14/18 09:00 01/08/19 08:59 12/16/18 08:17 Tamsulosin HCl (Flomax) 0.4 mg Q12HR ORAL 12/14/18 09:00 01/13/19 08:59 12/16/18 08:17 Trimethoprim/ Sulfamethoxazole (Bactrim-DS) 20 ml EVERY 12 HOURS NG 12/14/18 21:00 12/21/18 20:59 12/16/18 08:17 Last 24 Hour Vital Signs Date Time Temp Pulse Resp B/P (MAP) Pulse Ox O2 Delivery O2 Flow Rate FiO2 12/16/18 12:00 98.6 65 21 131/69 (89) 98 12/16/18 08:12 98 Nasal Cannula 2.0 28 12/16/18 08:00 98.2 63 18 131/62 (85) 97 12/16/18 08:00 Nasal Cannula 2.0 12/16/18 04:00 98.0 66 20 132/52 (78) 95 12/16/18 00:00 98.0 70 20 132/62 (85) 95 12/15/18 21:00 Nasal Cannula 2.0 12/15/18 20:30 98 Nasal Cannula 2.0 28 12/15/18 20:00 98.4 63 20 127/51 (76) 98 12/15/18 16:00 97.4 74 20 124/61 (82) 95 12/15/18 12:00 98.0 74 18 121/64 (83) 97 12/15/18 09:09 97 Nasal Cannula 2.0 28 12/15/18 09:00 Nasal Cannula 2.0 12/15/18 08:00 98.2 72 18 121/42 (68) 97 12/15/18 04:00 98.4 69 18 124/70 (88) 97 12/15/18 00:00 98.6 64 18 115/52 (73) 97 12/14/18 22:31 Nasal Cannula 2.0 12/14/18 20:01 99 Nasal Cannula 2.0 28 12/14/18 20:00 98.7 77 18 130/67 (88) 97 12/14/18 16:00 98.7 82 16 135/62 (86) 100 Intake and Output 12/15/18 12/16/18 18:59 06:59 Intake Total 140 ml 140 ml Output Total 1250 ml Balance 140 ml -1110 ml Intake Oral 140 ml 140 ml Output Urine Total 1000 ml Stool Total 250 ml # Voids 3 # Bowel Movements 1 Labs Test 12/13/18 14:40 12/15/18 05:30 12/16/18 04:41 Vancomycin Level Trough 5.9 ug/mL (5.0-12.0) White Blood Count 11.5 K/UL (4.8-10.8) Red Blood Count 4.25 M/UL (4.70-6.10) Hemoglobin 13.2 G/DL (14.2-18.0) Hematocrit 40.4 % (42.0-52.0) Mean Corpuscular Volume 95 FL (80-99) Mean Corpuscular Hemoglobin 31.0 PG (27.0-31.0) Mean Corpuscular Hemoglobin Concent 32.6 G/DL (32.0-36.0) Red Cell Distribution Width 12.0 % (11.6-14.8) Platelet Count 292 K/UL (150-450) Mean Platelet Volume 6.5 FL (6.5-10.1) Neutrophils (%) (Auto) 64.9 % (45.0-75.0) Lymphocytes (%) (Auto) 17.8 % (20.0-45.0) Monocytes (%) (Auto) 9.6 % (1.0-10.0) Eosinophils (%) (Auto) 6.2 % (0.0-3.0) Basophils (%) (Auto) 1.5 % (0.0-2.0) Sodium Level 142 MMOL/L (136-145) 142 MMOL/L (136-145) Potassium Level 3.6 MMOL/L (3.5-5.1) 4.2 MMOL/L (3.5-5.1) Chloride Level 103 MMOL/L (98-107) 102 MMOL/L (98-107) Carbon Dioxide Level 34 MMOL/L (21-32) 31 MMOL/L (21-32) Anion Gap 5 mmol/L (5-15) 9 mmol/L (5-15) Blood Urea Nitrogen 27 mg/dL (7-18) 29 mg/dL (7-18) Creatinine 1.2 MG/DL (0.55-1.30) 1.3 MG/DL (0.55-1.30) Estimat Glomerular Filtration Rate mL/min (>60) mL/min (>60) Glucose Level 110 MG/DL (74-106) 152 MG/DL (74-106) Uric Acid 5.3 MG/DL (2.6-7.2) Calcium Level 8.8 MG/DL (8.5-10.1) 8.8 MG/DL (8.5-10.1) Phosphorus Level 3.1 MG/DL (2.5-4.9) Total Bilirubin 0.4 MG/DL (0.2-1.0) Aspartate Amino Transf (AST/SGOT) 32 U/L (15-37) Alanine Aminotransferase (ALT/SGPT) 36 U/L (12-78) Alkaline Phosphatase 58 U/L (46-116) C-Reactive Protein, Quantitative 12.3 mg/dL (0.00-0.90) Pro-B-Type Natriuretic Peptide 1158 pg/mL (0-125) 599 pg/mL (0-125) Total Protein 7.3 G/DL (6.4-8.2) Albumin 2.4 G/DL (3.4-5.0) Globulin 4.9 g/dL Albumin/Globulin Ratio 0.5 (1.0-2.7) Height (Feet): 6 Height (Inches): 0.00 Weight (Pounds): 295 Objective PHYSICAL EXAMINATION: VITAL SIGNS: reviewed GEN: No acute distress. Seems obese. Restraints++ HEART: Regular. LUNGS: Clear tab ABDOMEN: Obese, soft, and nontender. EXTREMITIES: Have erythema, warmness, b/l and multiple wounds noted SKIN: Have skin cracks between the right foot toes. Shawn Lopez MD Dec 16, 2018 13:35
--- NOTE | 2018-12-16 13:50 | Infectious Diseases Prog Note ---
Assessment/Plan Assessment/Plan IMPRESSION: Sepsis, resolving Cellulitis of left lower extremity. E. coli [facility] Dementia, morbid obesity, hypertension, lactic acidosis, chronic kidney disease. Altered mental status RECOMMENDATION: continue Bactrim & Keflex Agree with discharge Subjective ROS Limited/Unobtainable: Yes Respiratory: Reports: no symptoms Gastrointestinal/Abdominal: Reports: no symptoms Genitourinary: Reports: no symptoms Musculoskeletal: Reports: no symptoms Allergies: Coded Allergies: No Known Allergies (Unverified , 12/06/17) Objective Vital Signs Last 24 Hour Vital Signs Date Time Temp Pulse Resp B/P (MAP) Pulse Ox O2 Delivery O2 Flow Rate FiO2 12/16/18 12:00 98.6 65 21 131/69 (89) 98 12/16/18 08:12 98 Nasal Cannula 2.0 28 12/16/18 08:00 98.2 63 18 131/62 (85) 97 12/16/18 08:00 Nasal Cannula 2.0 12/16/18 04:00 98.0 66 20 132/52 (78) 95 12/16/18 00:00 98.0 70 20 132/62 (85) 95 12/15/18 21:00 Nasal Cannula 2.0 12/15/18 20:30 98 Nasal Cannula 2.0 28 12/15/18 20:00 98.4 63 20 127/51 (76) 98 12/15/18 16:00 97.4 74 20 124/61 (82) 95 Height (Feet): 6 Height (Inches): 0.00 Weight (Pounds): 295 General Appearance: no acute distress HEENT: mucous membranes moist Respiratory/Chest: normal breath sounds Cardiovascular: normal rate Abdomen: soft, non tender Extremities: other - mild edema Skin: rash, other - erythema shins L> R Neurologic/Psychiatric: alert, responsive Laboratory Tests Test 12/16/18 04:41 Sodium Level 142 MMOL/L (136-145) Potassium Level 4.2 MMOL/L (3.5-5.1) Chloride Level 102 MMOL/L (98-107) Carbon Dioxide Level 31 MMOL/L (21-32) Anion Gap 9 mmol/L (5-15) Blood Urea Nitrogen 29 mg/dL (7-18) H Creatinine 1.3 MG/DL (0.55-1.30) Estimat Glomerular Filtration Rate mL/min (>60) Glucose Level 152 MG/DL (74-106) H Calcium Level 8.8 MG/DL (8.5-10.1) Pro-B-Type Natriuretic Peptide 599 pg/mL (0-125) H Current Medications Medications (Trade) Dose Ordered Sig/Arina Route PRN Reason Start Time Stop Time Status Last Admin Dose Admin Acetaminophen (Tylenol) 650 mg Q4H PRN ORAL Mild Pain/Temp > 100.5 12/13/18 23:15 01/07/19 23:14 12/15/18 14:39 Acetaminophen (Tylenol) 650 mg Q4H PRN RECTAL Mild Pain/Temp > 100.5 12/13/18 21:15 01/08/19 01:14 Cephalexin (Keflex) 500 mg FOUR TIMES A DAY ORAL 12/14/18 13:00 12/21/18 12:59 12/16/18 12:36 Docusate Sodium (Colace) 100 mg THREE TIMES A DAY ORAL 12/14/18 09:00 01/09/19 17:59 12/16/18 12:36 Furosemide (Lasix) 40 mg DAILY IV 12/16/18 09:00 01/15/19 08:59 12/16/18 08:29 Haloperidol Lactate (Haldol) 5 mg Q6H PRN IM Agitation 12/13/18 22:00 01/12/19 15:59 12/15/18 03:38 Heparin Sodium (Porcine) (Heparin 5000 units/ml) 5,000 units EVERY 12 HOURS SUBQ 12/13/18 21:00 01/10/19 12:44 12/16/18 08:18 Mirtazapine (Remeron) 7.5 mg BEDTIME ORAL 12/14/18 21:00 01/13/19 20:59 12/14/18 20:11 Pantoprazole (Protonix) 40 mg EVERY 12 HOURS ORAL 12/13/18 21:00 01/09/19 20:59 12/16/18 08:17 Spironolactone (Aldactone) 50 mg DAILY ORAL 12/14/18 09:00 01/08/19 08:59 12/16/18 08:17 Tamsulosin HCl (Flomax) 0.4 mg Q12HR ORAL 12/14/18 09:00 01/13/19 08:59 12/16/18 08:17 Trimethoprim/ Sulfamethoxazole (Bactrim-DS) 20 ml EVERY 12 HOURS NG 12/14/18 21:00 12/21/18 20:59 12/16/18 08:17 Robert Lovelace MD Dec 16, 2018 13:50
--- NOTE | 2018-12-16 14:13 | NUR ---
nurse notes discharged in stable condition with all belongings taken accompanied by ambulance personnel , report given accordingly BEN santiago
--- NOTE | 2018-12-16 19:39 | Surgery Progress Note ---
Surgery Progress Note Subjective Additional Comments late entry as patient was seen this AM no acute events labs noted exam stable d/c planning for today Objective Last 24 Hour Vital Signs Date Time Temp Pulse Resp B/P (MAP) Pulse Ox O2 Delivery O2 Flow Rate FiO2 12/16/18 12:00 98.6 65 21 131/69 (89) 98 12/16/18 08:12 98 Nasal Cannula 2.0 28 12/16/18 08:00 98.2 63 18 131/62 (85) 97 12/16/18 08:00 Nasal Cannula 2.0 12/16/18 04:00 98.0 66 20 132/52 (78) 95 12/16/18 00:00 98.0 70 20 132/62 (85) 95 12/15/18 21:00 Nasal Cannula 2.0 12/15/18 20:30 98 Nasal Cannula 2.0 28 12/15/18 20:00 98.4 63 20 127/51 (76) 98 I&O Intake and Output 12/15/18 12/16/18 19:00 07:00 Intake Total 140 ml 140 ml Output Total 1250 ml Balance 140 ml -1110 ml Intake Oral 140 ml 140 ml Output Urine Total 1000 ml Stool Total 250 ml # Voids 3 # Bowel Movements 1 Dressing: dry Wound: clean Cardiovascular: RSR Respiratory: clear Abdomen: soft, non-tender, present bowel sounds Extremities: no cyanosis, other Laboratory Tests Test 12/16/18 04:41 Sodium Level 142 MMOL/L (136-145) Potassium Level 4.2 MMOL/L (3.5-5.1) Chloride Level 102 MMOL/L (98-107) Carbon Dioxide Level 31 MMOL/L (21-32) Anion Gap 9 mmol/L (5-15) Blood Urea Nitrogen 29 mg/dL (7-18) H Creatinine 1.3 MG/DL (0.55-1.30) Estimat Glomerular Filtration Rate mL/min (>60) Glucose Level 152 MG/DL (74-106) H Calcium Level 8.8 MG/DL (8.5-10.1) Pro-B-Type Natriuretic Peptide 599 pg/mL (0-125) H Plan Problems: (1) Cellulitis Assessment & Plan: Right Tib fib xrays nml Left Tib fix xrays w/ There is subcutaneous edema involving the left leg. There is no fracture. The bones are osteopenic. exam with cellulitis. no abscess palpable on left right with small healing scab posterior cont IV Abx will follow clinically (2) Elevated WBCs (3) Sepsis Assessment & Plan: possible etiology lower extremity cellulitis cont abx no abscess to drain currently. mainly phlegmona cultures noted labs improving exam improving AM labs cont abx as per ID thank you (4) Fever Additional Comments okay to d/c from surgical standpoint f/u outpatient wound care Yayo Callaway Dec 16, 2018 19:39
--- NOTE | 2018-12-17 09:54 | Discharge Summary ---
Discharge Summary Discharge Summary _ DATE OF ADMISSION: 12/08/2018 DATE OF DISCHARGE: 12/16/2018 DISCHARGED BY: Dr Alonso REASON FOR ADMISSION: 83 years old male, with past medical history of hypertension, congestive heart failure, chronic kidney disease, dementia, resident of shelter facility , was sent for evaluation due to fever. Patient apparently had 102 fever at the facility and received Tylenol prior to arrival of paramedics. Upon evaluation, patient was found to have leukocytosis and left lower extremity cellulitis as well as the evidence of renal failure . EKG revealed normal sinus rhythm , no acute ischemic changes. Troponin negative Chest x-ray demonstrated suspected pulmonary vascular congestion. Laboratory work-up revealed significant leukocytosis WBC 30.1 , stable hemoglobin and hematocrit. Lactic acid 2.6 , repeated 2.3. Sodium 134 , BUN 24, creatinine 1.5 . Glucose 116 . Albumin 3.3. Stable LFT. Septic work-up initiated in the emergency room. Patient subsequently admitted for further management. CONSULTANTS: director of family service center Dr. Gant neurologist Dr. John pulmonary Dr. Gordillo ID specialist Dr. Major waterproof bag cutting machine operator Dr. Rashid smudger/oncologist Dr. Lopez surgery Dr. Callaway psychiatrist [facility] COURSE: Patient admitted initially to telemetry floor and started on slow hydration. Renal parameters and electrolytes were closely monitored, electrolytes corrected as needed , and nephrotoxins were avoided. Venous duplex bilateral lower extremity revealed no evidence of acute DVT. Echocardiogram demonstrated left ventricular ejection fraction of 50%. Posterior and basal to mid inferoseptal wall hypokinesia. Ischemic cardiomyopathy could not be excluded. Right ventricular systolic pressure of 27. X-ray of the right tibia-fibula revealed degenerative arthritis , but no acute fracture or misalignment noted. X-ray of the left tibia-fibula revealed subcutaneous edema, involving the left leg; no fracture; the bones were osteopenic. Urinalysis revealed pyuria and only few bacteria. Urine culture was initially negative and then showed E. coli . Blood culture were negative, initial and repeated. Follow-up chest x-ray revealed subsegmental atelectasis versus infiltrate in the right lung base . Screw Machine Tender followed. Per hand bookbinder, patient may have possible pneumonia. Supplemental oxygen and pulmonary toilet provided as needed. Leukocytosis was trending down , prior to discharge 11.5. Initial fever resolved. Sepsis was likely due to left lower extremity cellulitis, probable pneumonia and E. coli UTI. Antibiotics optimized as per ID recommendation and changed to oral upon discharge to complete the course. Learning Coach followed. Patient noted to have frequent PVC. Serial troponin were negative. EKG revealed no acute ischemic changes. Patient was ruled out for acute NH. Learning Coach recommended to keep magnesium above 2 and potassium above 4 . Blood pressure was managed with Aldactone. 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 Pro BNP initially elevated. Patient received IV Lasix, and pro BNP down to 599. Neurologist seen patient for altered mental status . Patient had a chronic dementia , probably Alzheimer type . Patient also exhibited metabolic encephalopathy most likely due to sepsis. Neurologist provided few recommendations which were followed. Patient started on Remeron. TSH was within normal limits. BiPAP was on board as needed and at nighttime. DVT and GI prophylaxis provided. Patient with a probable obesity hypoventilation syndrome given somnolence, mild hypercapnia and morbid obesity. Screw Machine Tender recommended outpatient sleep study. Somnolence improved. Specification Consultant followed. Renal parameters and electrolytes were closely monitored. Electrolytes corrected as needed. Nephrotoxins were avoided. Patient was slowly hydrated initially. Later was slowly diuresed. Prior to discharge creatinine from 1.5 down to normal 1.3. Surgeon seen the patient for left lower extremity cellulitis. No abscess to drain , mainly phlegmon. Surgery recommended continue antibiotic as per ID specialist recommendations. No acute surgical intervention was necessarily. Mild anemia noted, but no work-up was required at this time. Hemoglobin and hematocrit remained stable, prior to discharge hemoglobin 13.2, and hematocrit 40.4. Psychiatrist followed and diagnosed patient with dementia with behavioral disturbances. Psychiatric medication regimen was optimized as per psychiatrist. Patient clinically stabilized and was ready for discharge to shelter facility for continuation of care. FINAL DIAGNOSES: Sepsis Cellulitis left lower extremity Possible pneumonia E. 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 DISCHARGE INSTRUCTIONS: Patient was discharged to the shelter facility. Follow up with medical doctor at the facility. I have been assigned to dictate discharge summary for this account. I was not involved in the patient's management. Juliet Novoa NP Dec 17, 2018 09:54
== END 2018-12-16 13:21 | DRG 871 ==
LOC: EDBD 16:47 → EMR 17:31 → 2E 18:18 → EDBEDREQSVC 18:54 → EDBEDREQ 19:17 → 2E 12-09 13:54 → 4W 12-11 14:15 → 2W 12-11 14:25 → 4E 12-13 20:33
DX: A41.9 Sepsis, unspecified organism (principal); G93.41 Metabolic encephalopathy; J18.9 Pneumonia, unspecified organism; N17.9 Acute kidney failure, unspecified; L03.116 Cellulitis of left lower limb; N39.0 Urinary tract infection, site not specified; I13.0 Hypertensive heart and chronic kidney disease with heart failure and stage 1 through stage 4 chronic kidney disease, or unspecified chronic kidney disease; I45.2 Bifascicular block; F02.81 Dementia in other diseases classified elsewhere, unspecified severity, with behavioral disturbance; E66.2 Morbid (severe) obesity with alveolar hypoventilation; D64.9 Anemia, unspecified; G30.9 Alzheimer's disease, unspecified; B96.20 Unspecified Escherichia coli [E. coli] as the cause of diseases classified elsewhere; N18.9 Chronic kidney disease, unspecified; I50.9 Heart failure, unspecified; I49.3 Ventricular premature depolarization; B35.3 Tinea pedis; E88.09 Other disorders of plasma-protein metabolism, not elsewhere classified
CPT/HCPCS: 36415; 36600; 71045; 80048; 80053; 80061; 80202; 81001; 81003; 82140; 82550; 82553; 82803; 82962; 82977; 83036; 83605; 83735; 83880; 84100; 84439; 84443; 84484; 84550; 85007; 85025; 85610; 85651; 85730; 86140; 86850; 86900; 86901; 87040; 87081; 87086; 87181; 93005; 93306; 93970; 94660; 94664; 96361; 96365; 96366; 96368; 96372; 96375; 96376; 99285